=== PATIENT | female | born 1985 | race Caucasian/White ===

== ENCOUNTER 2021-08-11 15:18 | Emergency (ER) | payer OTHER, SELFPAY ==
[2021-08-11 15:46] VITALS: BP 132/78; PULSE 74; PULSE 78; RESP 18; TEMP 37.2; O2SAT 97; O2SAT 98; BMI 26.6
--- NOTE | 2021-08-11 17:25 | ED.GENADULT ---
HPI - General Adult General Chief complaint: General Medical Stated complaint: DRUG USE Time Seen by Provider: 08/11/21 15:45 Source: patient Mode of arrival: EMS Limitations: no limitations History of Present Illness HPI narrative: 35-year-old female who was brought to the emergency department by ambulance for reported panic attack. The patient was sitting outside of the [employer] when the paramedics picked her up. She was brought to the emergency department for anxiety and initially placed in the Psychiatric Pod. She then reported to the ED nurse that she snorted 1 bag of heroin prior to having her panic attack. The patient was found to be lethargic but she was able to answer questions, her pupils were 4-5 mm in diameter and not pinpoint. I evaluated the patient and asked the patient to be moved to the emergency department so that we could monitor her O2 saturation and moderate her for respiratory depression. The patient is somnolent but arousable. She answers questions appropriately but answers very slowly. Patient states that she does not feel well and she feels that she is having anxiety attack. She states she feels of her heart is racing. She had no other complaints. She denied fever, chills, cough, chest pain, shortness of breath, nausea or vomiting. She states she has a history of anxiety. Related Data Allergies Allergy/AdvReac Type Severity Reaction Status Date / Time No Known Allergies Allergy Verified 08/11/21 17:29 Review of Systems Review of Systems: Yes all other systems are reviewed and are negative [facility] Past Medical History [facility] Narrative: Past medical history: Anxiety, chronic back pain, polysubstance abuse. Past surgical history: None. Social history: She denies tobacco use. She denies alcohol use. She does admit to using intranasal heroin 2 to 3 times a week. She did use prior to coming to the emergency department. Medical History Polysubstance abuse Social History Social History Advance Directives: No Advance Directives Information Provided: No Patient : No Physical Exam Vital Signs: Vital Signs: Last Vital Signs Temp 98.9 F 08/11/21 15:46 Pulse 80 08/11/21 17:34 Resp 16 08/11/21 17:34 BP 132/78 08/11/21 15:46 Pulse Ox 99 08/11/21 17:34 Body Mass Index 26.6 Const: Other: Patient is sitting in a chair, she is somnolent but arousable, she answers questions appropriately but answers very slowly in a soft voice. HENMT: Head: Yes normal to inspection, Yes normocephalic and Yes atraumatic Ears: external ears normal General nose exam: Normal external nose present Face and sinus: Yes normal facial exam Mouth: Normal oral and palatal mucosa present Throat: Yes posterior oropharynx normal Eyes: General: appearance normal, both eyes and all related structures Pupils: Equal, round and reactive pupils present Neck: Neck: Yes normal visual inspection, Yes no lymphadenopathy, Yes trachea midline and Yes supple Chest: Chest palpation & inspection: normal inspection of the chest and normal palpation of entire chest wall Resp: Effort & Inspection: normal respiratory effort and able to speak in complete sentences Auscultation: clear to auscultation bilaterally Cardio: Rate: regular rate Rhythm: regular rhythm Heart sounds: S1 normal heart sound present, S2 normal heart sound present and no murmurs GI: Inspection: Yes normal to inspection Palpation (GI): Soft to palpation, nontender and no guarding Auscultation: normal bowel sounds : General: Yes no CVA tenderness Back/Spine/Pelvis: Back: no CVA tenderness Skin: General skin exam: no rashes or lesions noted Neuro: Cranial nerves: Yes CN's II-XII intact bilaterally and Yes Equal, round and reactive pupils present Cognition (Neuro): normal cognition Motor exam (neuro): 5/5 motor strength present throughout Extrem: General: Yes normal to inspection Psych: Appearance: grossly normal Speech and movement: Normal speech and movement present Affect: Other affect and mood findings present (Somnolent) Attitude: cooperative Thought process: Normal thought process present Thought content: Normal thought content present, suicidality and no homicidality Course Course Course Narrative: 35-year-old female brought emergency department by ambulance for evaluation of anxiety and use of intranasal narcotics. Vital signs were normal with an O2 saturation of 98% on room air and a respiratory rate of 18. The patient initially was found to be somnolent but arousable and answers all questions appropriately. Her physical examination was otherwise unremarkable. The patient was placed on O2 saturation monitor. The patient was monitored closely for 1 hour and she had no episodes of desaturation or decreased respiratory rate. The patient will be monitored for 1-2 more hours to make sure that she does not have any further somnolent from her narcotic use. I did order a urine tox on the patient which is pending collection. 1827: The patient is awake and alert has no complaints. The patient did not give us a urine sample. The patient was discharged home and given intranasal Narcan to take home. The patient does not want any counseling from our academic coach. I did discuss safe use of narcotics and the fact that she should use informed of the sober person that can administer Narcan in the event that she loses consciousness or stops breathing. Patient was discharged home. The patient was given verbal and printed instructions prior to discharge. The patient was advised to follow-up with her PCP in 2 days and to return to the emergency department if her symptoms get worse or if she develops any new symptoms that are concerning to her. Discharge Plan Discharge Clinical Impression: Anxiety, Narcotic drug use Instructions: Anxiety (ED), Opioid Use Disorder (ED) Additional Instructions: Your are being discharged home with intranasal Narcan. If you are going to continue to use heroin, you should make sure that there is a sober person with you that is not using drugs and that this person can administer intranasal Narcan in the event that you stop breathing. Follow-up with your doctor in 2 days. Please return to the emergency department if your symptoms get worse or if you develop any symptoms that are concerning to you.
[2021-08-11 17:34] VITALS: PULSE 80; RESP 16; O2SAT 99
[2021-08-11] MEDS: Naloxone HCl Nasal TAKE HOME 4 MG SPRAY NOSTRILALT (18:57)
[2021-08-11 20:00] VITALS: RESP 16; O2SAT 98
--- NOTE | 2021-08-11 21:12 | MHC.CARE ---
CARE Team met with patient to offer detox/MAT resources. Patient declined detox referral, but asked for assistance getting transportation home. The CARE Team attempted to get a Lyft for the patient three times, but no drivers were available so [facility] was contacted to transport the patient. The CARE Team walked the patient to the [employer] when it arrived and provided her with information about outpatient substance use resources.
== END 2021-08-11 20:42 | disposition home or self-care (01) ==
PROVIDERS: Emergency Provider Emergency Medicine Emergency Medical Services
DX: F41.0 Panic disorder [episodic paroxysmal anxiety] (principal); F41.1 Generalized anxiety disorder; F43.0 Acute stress reaction; F11.10 Opioid abuse, uncomplicated; Z79.899 Other long term (current) drug therapy; Z71.51 Drug abuse counseling and surveillance of drug abuser
CPT/HCPCS: 99283

== ENCOUNTER 2025-08-15 16:56 | Inpatient (IN) | payer OTHER, SELFPAY ==
[2025-08-15 17:22] VITALS: BP 135/70; PULSE 97; RESP 18; TEMP 36.7; O2SAT 97
[2025-08-15 17:29] VITALS: BP 154/82; PULSE 92; O2SAT 97; BMI 36.9
--- NOTE | 2025-08-15 17:31 | ED_ITS ---
HPI - Psych General Chief Complaint: Psychiatric Symptoms Stated Complaint: crisis Time Seen by Provider: 08/15/25 17:02 History of Present Illness HPI Narrative: Patient is a 39-year-old female with a history of schizoaffective disorder. [facility]. Patient ran outside. Was worried that she is by an alien. Patient denies any suicidal homicidal ideation was brought in for further evaluation. Baseline is on antipsychotic. Patient denies any changes in medication. Related Data Home Medications ?Medication ?Instructions ?Recorded ?Confirmed Haldol Decanoate 100 mg IM Q4W 08/15/2508/15 Invega Sustenna 234 mg IM Q4W 08/15/2508/15 Nicotine Tartrate 2 mg PO Q4-5H PRN Nicotine C ravings 08/15/25 08/15/25 acetaminophen 650 mg PO Q8-10H PRN Pain, M ild 08/15/25 08/15/25 buprenorphine HCl 2 mg PO DAILY 08/15/2508/15 chlorpromazine 100 mg PO Q6-8H PRN Anxiety 08/15/25 08/15/25 hydroxyzine HCl 25 mg PO Q8-10H PRN Anxiety 08/15/25 08/15/25 lactulose 15 ml PO DAILY PRN Constipat ion 08/15/25 08/15/25 tramadol 50 mg PO Q6H PRN Pain, Moder ate 08/15/25 08/15/25 Allergies Allergy/AdvReac Type Severity Reaction Status Date / Time lamotrigine (From Lamictal) Allergy Shortness Verified 08/16/25 18:32 of Breath Review of Systems 2 Review of Systems: No chest pain or shortness breath no nausea no vomiting no recreational drugs Yes all other systems are reviewed and are negative [facility] Past Medical History Attestation statement: The following information was validated with the patient. Medical History Polysubstance abuse Social History Social History Household Members: Other Housing: Other Housing Other:: penitentiary Do you presently have visiting nurse or other home services: Yes Patient Tobacco Use Status: Current everyday Tobacco user Tobacco use type: Cigarette Cigarette Packs Per Day: 1 Cigarettes Per Day: 20.0 Smoked in Last 30 Days: Yes e-Cigarette/Vaping Use: Never Used Patient Interested in Nicotine Replacement: Yes Patient Given Instructions on How to Stop Smoking: No Second Hand Smoke Exposure: No Currently Displaying Signs/Symptoms of Drug Intoxication Withdrawal: No Spiritual Healthcare Practices: None Tenriism Healthcare Practices: None Cultural Healthcare Practices: None Advance Directives: No Advance Directives Information Provided: Yes Do you have thoughts of harming others: None Do you have a plan to hurt others: No Plan Recently lost weight without trying: No How much weight loss: Not applicable Eating poorly because of decreased appetite: No Nutrition screen score: 0 Nutrition Risks: No Nutritional Risk Patient : No : No Poor oral hygiene: No service: No Sexual orientation: Did not discuss Physical Exam 2 Exam: Exam: Appearance: Alert. Oriented X3. No acute distress. Eyes: Pupils equal, round and reactive to light. ENT: Pharynx normal. Neck: Normal inspection. Neck supple. No lymph nodes noted. No crepitus CVS: Normal heart rate and rhythm. Pulses normal. Normal S1 and S2 Respiratory: No respiratory distress. Breath sounds normal. No Wheezing. No rales Abdomen: Soft and nontender. No rigidity. No distention. good BS x4 Skin: Skin warm and dry. Normal skin color. Normal skin turgor. Extremities: No lower extremity edema. Neurovascular intact to all extremities. No Lacerations. No Rash Neuro: Oriented X 3. No motor deficit. No sensory deficit. Moving all extermities. No slurred speech. Cranial nerves grossly intact Vital Signs: Vital Signs: Last Vital Signs Temp 97.2 F 08/26/25 08:40 Pulse 71 08/26/25 08:40 Resp 20 08/26/25 08:40 BP 102/63 08/26/25 08:40 Pulse Ox 97 08/26/25 08:40 O2 Del Method Room Air 08/26/25 08:40 BMI result Body Mass Index 36.9 Course Course Course Narrative: 9:43 AM 08/16/2025 (Dr. Toño Odonnell): Patient in physician observation for psychiatric evaluation.? No acute events reported overnight. Reevaluation(s) Reevaluation #1: 11:13 AM 08/16/2025 (Dr. Toño Odonnell): Patient is going to be inpatient level of care Medications Administered Generic Name Dose Route Start Last Admin Trade Name Giovana PRN Reason Stop Dose Admin Acetaminophen 650 mg 08/16/25 12:50 08/24/25 21:32 Acetaminophen 325 Mg Tablet PO 650 mg Q6H PRN Administration Headache/Pain, Scale 1-10 Buprenorphine HCl 2 mg 08/17/25 09:00 08/26/25 08:37 Buprenorphine Hcl 2 Mg Tab.Subl SUBLINGUAL 2 mg DAILY SYDNIE Administration Chlorpromazine HCl 100 mg 08/16/25 11:59 08/19/25 17:13 Chlorpromazine Hcl 100 Mg Tablet PO 100 mg Q6H PRN Administration Anxiety Haloperidol Decanoate 100 mg 08/18/25 12:00 08/18/25 16:24 Haloperidol Decanoate 50 Mg/Ml Vial IM 100 mg Q30D SYDNIE Administration Nicotine 21 mg 08/16/25 12:50 08/24/25 09:07 Nicotine 21 Mg Patch.Td24 TRANSDERMA 21 mg DAILY PRN Administration nicotine craving Nicotine Polacrilex 2 mg 08/16/25 12:50 08/25/25 14:16 Nicotine Polacrilex 2 Mg Gum BUCCAL 2 mg Q2H PRN Administration Nicotine Cravings Paliperidone Palmitate 234 mg 08/26/25 09:00 08/26/25 10:03 Paliperidone Palmitate 234 Mg/1.5 Ml Syringe IM 234 mg Q30D SYDNIE Administration Tramadol HCl 50 mg 08/17/25 09:30 08/26/25 09:14 Tramadol Hcl 50 Mg Tablet PO 50 mg Q6H PRN Administration Severe back pain as home med Discontinued Medications Generic Name Dose Route Start Last Admin Trade Name Giovana PRN Reason Stop Dose Admin Benztropine Mesylate 1 mg 08/19/25 21:00 08/22/25 20:21 Benztropine Mesylate 1 Mg Tablet PO Not Given BEDTIME SYDNIE Diphenhydramine HCl 25 mg 08/23/25 11:17 08/23/25 11:36 Diphenhydramine Hcl 25 Mg Capsule PO 08/23/25 11:18 Not Given ONCE ONE Influenza Virus Vaccine 0.5 ml 08/16/25 15:54 08/16/25 16:27 Flu Vacc [id number](6mo Up)/Pf 0.5 Ml Syringe IM 08/16/25 15:55 Not Given .ONCE ONE Lidocaine 1 patch 08/18/25 09:00 08/26/25 08:40 Lidocaine 4 % Patch Adh..Patch TRANSDERMA Not Given DAILY [facility] Protocol Naproxen 250 mg 08/19/25 18:50 08/19/25 19:27 Naproxen 250 Mg Tablet PO 08/19/25 18:51 Not Given ONCE ONE Nicotine Polacrilex 2 mg 08/15/25 19:51 08/16/25 11:00 Nicotine Polacrilex 2 Mg Gum BUCCAL 2 mg Q1H PRN Administration Nicotine Cravings Medical Decision Making Medical Decision Making MDM Narrative: Grossly psychotic will require psychiatric evaluation likely admission labs ordered. In no distress. Lab Data 08/15/25 17:40 08/15/25 17:40 Labs: Lab Results 08/15/25 08/15/25 Range/Units 17:40 17:54 WBC 19.8 H (4.8-10.8) X10*3/uL RBC 4.82 (4.20-5.50) X10*6/uL Hgb 13.9 (12.0-16.0) g/dl Hct 42.2 (37.0-47.0) % MCV 87.6 (80.0-98.0) fL MCH 28.8 (27.0-33.0) pg MCHC 32.9 (31.0-35.0) g/dl RDW 13.8 (11.0-16.0) % Plt Count 345 (160-400) X10*3/uL MPV 10.3 (9.4-12.3) fL Immature Gran % (Auto) 0.8 H (0.0-0.4) % Neut % (Auto) 58.0 (45-73) % Lymph % (Auto) 33.2 (20-40) % [place] % (Auto) 6.9 (2-11) % Eos % (Auto) 0.7 (0-4) % Baso % (Auto) 0.4 (0-2) % Lymph # (Auto) 6.6 H (1.2-4.9) X10*3/uL [place] # (Auto) 1.4 H (0.1-1.2) X10*3/uL Eos # (Auto) 0.1 (0.0-0.4) X10*3/uL Baso # (Auto) 0.1 (0.0-0.2) X10*3/uL Abs Immat Gran (auto) 0.15 H (0.00-0.03) X10*3/uL Absolute Neuts (auto) 11.5 H (2.0-8.3) x10*3/uL Absolute Nucleated RBC 0.000 (0.0-0.012) X10*3/uL Nucleated RBC % (auto) 0.0 (0.0-0.2) /100WBC Smear Tech's Comments VERIFIED Smear Path Review SEE NOTE Sodium 140 (135-145) mmol/L Potassium 4.0 (3.3-5.1) mmol/L Chloride 108 (96-108) mmol/L Carbon Dioxide 21 L (22-29) mmol/L Anion Gap 15 (12-20) BUN 12 (9-16) mg/dL Creatinine 0.74 (0.5-1.4) mg/dL Estim Creat Clear Calc 137.0 Estimated GFR > 60 Random Glucose 132 H (60-115) mg/dL Calcium 9.4 (8.4-10.2) mg/dL Total Bilirubin 0.8 (0.0-1.0) mg/dL AST 26 (5-31) U/L ALT 23 (0-31) U/L Alkaline Phosphatase 101 (39-117) U/L Total Protein 7.8 (6.5-8.0) g/dL Albumin 4.5 (3.5-5.0) g/dL Hold Yellow Top See Note Urine Color Yellow Urine Appearance Cloudy Urine pH 5.5 (5.0-9.0) Ur Specific [place] >= 1.030 H (1.005-1.025) Urine Protein Negative (Neg-Trace) mg/dL Urine Glucose (UA) Negative (Negative) mg/dL Urine Ketones Negative (Negative) mg/dL Urine Blood Negative (Negative) Urine Nitrite Negative (Negative) Ur Leukocyte Esterase Negative (Negative) Urine RBC 0-2 (0-2) /HPF Urine WBC 6-10 H (0-5) /HPF Ur Squamous Epith Cells >20 (0-2) /HPF Urine Bacteria 4+ (None Seen) Hyaline Casts 0-2 (0-2) /LPF Urine Test NEGATIVE (NEGATIVE) Urine Opiates Screen Not Detected (Not Detect) Ur Buprenorphine Scrn Positive H (Not Detect) ng/mL Ur Oxycodone Screen Not Detected (Not Detect) ng/mL Urine Methadone Screen Not Detected (Not Detect) ng/mL Urine Fentanyl Screen POSITIVE H (Not Detect) Ur Barbiturates Screen Not Detected (Not Detect) Ur Phencyclidine Scrn Not Detected (Not Detect) Ur Amphetamines Screen Not Detected (Not Detect) U Benzodiazepines Scrn Not Detected (Not Detect) Urine Cocaine Screen Not Detected (Not Detect) U Marijuana (THC) Screen Not Detected (Not Detect) Ethyl Alcohol < 10 mg/dL Discharge Plan Discharge Clinical Impression: Paranoid Patient Disposition: Admitted As Inpatient Interventions: Admission Worksheet (ED) Last Done: 08/16/25 15:00 Discharge Date/Time: 08/16/25 15:00
[2025-08-15 17:48] LABS: Hematocrit 42.2 % (37.0-47.0); Hemoglobin 13.9 g/dl (12.0-16.0); Imm Gran Abs Auto 0.15 X10*3/uL (0.00-0.03); Imm Gran Pct Auto 0.8 % (0.0-0.4); MANUAL DIFF FLAG SCAN; Mean Corpuscular HGB Conc 32.9 g/dl (31.0-35.0); Mean Corpuscular Hemoglobin 28.8 pg (27.0-33.0); Mean Corpuscular Volume 87.6 fL (80.0-98.0); NRBC Abs Auto 0.000 X10*3/uL (0.0-0.012); NRBC Pct Auto 0.0 /100WBC (0.0-0.2); Platelet Count 345 X10*3/uL (160-400); Red Blood Count 4.82 X10*6/uL (4.20-5.50); SCAN SMEAR FLAG 1; White Blood Count 19.8 X10*3/uL (4.8-10.8)
[2025-08-15 17:49] LABS: Lymphocytes Absolute Auto 6.6 X10*3/uL (1.2-4.9)
[2025-08-15 18:01] LABS: Appearance Urine Cloudy; Glucose Urine UA Negative (Negative); PH 5.5 (5.0-9.0); Specific Gravity - Urine >= 1.030 (1.005-1.025)
[2025-08-15 18:02] LABS: UPreg QC Valid YES
[2025-08-15 18:06] LABS: UACC Culture Trigger YES
[2025-08-15 18:09] LABS: Cannabinoid Screen Urine Not Detected (Not Detect)
[2025-08-15 18:16] LABS: Alanine Aminotransferase 23 U/L (0-31); Albumin Level 4.5 g/dL (3.5-5.0); Alkaline Phosphatase 101 U/L (39-117); Anion Gap 15 (12-20); Aspartate Amino Transferase 26 U/L (5-31); Blood Urea Nitrogen 12 mg/dL (9-16); Calcium 9.4 mg/dL (8.4-10.2); Carbon Dioxide 21 mmol/L (22-29); Chloride 108 mmol/L (96-108); Creatinine Clr Calc Pharmacy 137.0; Estimated Glomerular Filt Rate > 60; Potassium 4.0 mmol/L (3.3-5.1); Sodium 140 mmol/L (135-145); Total Protein 7.8 g/dL (6.5-8.0)
--- NOTE | 2025-08-15 18:32 | PC.NURSE ---
Pt is oriented to the unit, she is paranoid and talking about the staff at the retirement trying to poison and kill her and her baby on arrival. She is calm and cooperative and agreeable to labs. She states she does not know when she took medications last. she denies SI/HI/AVH. she denies Pain or injuries. Her retirement is called, Elizabeth Martin reviews patients medications. She states Pt has been sniffing and smoking Crack cocaine and drinking. When patient is asked, she admits to the cocaine and drinking. She comes to the nurse and asks for Nicotine gum, she is able to have an improved conversation with little paranoia. SHe is given dinner and is quiet in her room.
--- OUTSIDE RECORDS SUMMARY | 2025-08-15 19:20 | XMS_ITS | Clinical Summary ---
Author Organization [facility] Address [address] [place] [id number] Care Team Providers Care Agency Cashier Name Role Phone Unavailable Primary Care Provider Unavailabl e Allergies Active Allergy Reactions Criticality Noted Date Comments Carbamazepine Unknown Lamotrigine Unknown Latex, Natural Rubber Anaphylaxis Soy Anaphylaxis Social History Tobacco Use Types Packs/Day Years Used Date Smoking Tobacco: Never Assessed Comments Unknown Sex and Gender Information Value Date Recorded Sex Assigned at Female 01/17/2024 12:59 AM EST Legal Sex Female 12:59 AM EST Gender Identity Female 01/17/2024 12:59 AM EST Sexual Orientation Not on file Plan of Treatment Health Maintenance Due Date Last Done Comments Blood Pressure 1985 Depression Screening 1989 Hepatitis C Screening 2003 DTaP,Tdap,and Td Vaccines (1 - Tdap) 2004 Pap Smear 2006 Cervical Cancer Screening 2015 HPV/Cotest 2015 COVID-19 Vaccine (2023-2 5 season) 2024 Influenza Vaccine (#1) 2025 Meningococcal B Vaccines Aged Out No longer eligible based on patient's age to complete this topic Meningococcal Vaccines Aged Out No lo nger eligible based on patient's age to complete this topic Pneumococcal Vaccine: Pediat rics (0 to 5 Years) and At-Risk Patients (6 to 64 Years) Aged Out No longer eligible b ased on patient's age to complete this topic
[2025-08-16 05:35] VITALS: BP 121/73; PULSE 78; RESP 18; TEMP 36.2; O2SAT 97
--- NOTE | 2025-08-16 11:10 | PC.NURSE ---
Assumed care of this patient at this time, patient requesting nicotine gum, POC IPLOC bedsearch.
--- NOTE | 2025-08-16 11:10 | MHC.CARE ---
Pt will be an inpatient bedsearch
--- NOTE | 2025-08-16 11:45 | PC.NURSE ---
Requested provider Dr. Odonnell to order meds, med rec completed by previous RN, awaiting orders.
--- NOTE | 2025-08-16 12:54 | ECG_ITS ---
Test Reason : PROLONGED QT Blood Pressure : */* mmHG Vent. Rate : 72 BPM Atrial Rate : 72 BPM P-R Int : 132 ms QRS Dur : 82 ms QT Int : 390 ms P-R-T Axes : 56 69 63 degrees QTcB Int : 427 ms Normal sinus rhythm Normal ECG No previous ECGs available Referred By: Christine Rg Electronically Signed By: CRAIG GRIMM
--- NOTE | 2025-08-16 13:10 | PC.NURSE ---
Food Safety Coordinator from [facility] Hollie called inquiring about the patient, informed her patient will be admitted inpatient, Nazario requested note to be able stating patient is being followed by their agency.
--- NOTE | 2025-08-16 13:16 | PC.NURSE ---
Patient refused blood draw, grievance and appeals coordinator made aware. EKG for admission completed.
--- NOTE | 2025-08-16 14:06 | PC.NURSE ---
Med list in chart faxed to pharmacy per their request.
--- NOTE | 2025-08-16 14:31 | PHA.MEDREC ---
Pharmacy Consult ? Medication Reconciliation Pharmacy has reviewed the medication reconciliation done by nursing, using med list from [facility].
[2025-08-16 15:36] VITALS: BP 130/85; PULSE 81; RESP 18; TEMP 36.4; O2SAT 98
[2025-08-16 15:38] VITALS: BMI 34.4
--- NOTE | 2025-08-16 16:44 | HO.PSYADMNOT ---
HPI Date of Service: 08/16/25 Chief Complaint: crisis Sources of Information: patient interviewed, chart reviewed and crisis/core team assessment reviewed HPI Subjective Notes: Love Warning and Conditional Voluntary Healthcare Proxy: No Guardianship: No Medical Problems Affecting Mental Status: No Past Psychiatric History: Hx of IPLOC Hx of respite No hx of PHP No hx of Detox Medical Evaluation Reviewed: Yes Ellevated WBC but refused to have it rechecked [facility] Medical History Polysubstance abuse Diagnostics Vital Signs (24Hr): Vital Signs - 24 hr 08/15/25 17:22 08/16/25 05:35 08/16/25 15:36 Temperature 98.1 F 97.1 F 97.6 F Pulse Rate 97 78 81 Respiratory Rate 18 18 18 Blood Pressure 135/70 121/73 130/85 Pulse Oximetry 97 97 98 Oxygen Delivery Method Room Air Room Air Room Air BMI result Body Mass Index 34.4 Labs 08/15/25 17:40 08/15/25 17:40 Labs: Laboratory Results - last 48 hr 08/15/25 08/15/25 17:40 17:54 WBC 19.8 H RBC 4.82 Hgb 13.9 Hct 42.2 MCV 87.6 MCH 28.8 MCHC 32.9 RDW 13.8 Plt Count 345 MPV 10.3 Immature Gran % (Auto) 0.8 H Neut % (Auto) 58.0 Lymph % (Auto) 33.2 [place] % (Auto) 6.9 Eos % (Auto) 0.7 Baso % (Auto) 0.4 Lymph # (Auto) 6.6 H [place] # (Auto) 1.4 H Eos # (Auto) 0.1 Baso # (Auto) 0.1 Abs Immat Gran (auto) 0.15 H Absolute Neuts (auto) 11.5 H Absolute Nucleated RBC 0.000 Nucleated RBC % (auto) 0.0 Smear Tech's Comments VERIFIED Smear Path Review SEE NOTE Sodium 140 Potassium 4.0 Chloride 108 Carbon Dioxide 21 L Anion Gap 15 BUN 12 Creatinine 0.74 Estim Creat Clear Calc 137.0 Estimated GFR > 60 Random Glucose 132 H Calcium 9.4 Total Bilirubin 0.8 AST 26 ALT 23 Alkaline Phosphatase 101 Total Protein 7.8 Albumin 4.5 Hold Yellow Top See Note Urine Color Yellow Urine Appearance Cloudy Urine pH 5.5 Ur Specific [place] >= 1.030 H Urine Protein Negative Urine Glucose (UA) Negative Urine Ketones Negative Urine Blood Negative Urine Nitrite Negative Ur Leukocyte Esterase Negative Urine RBC 0-2 Urine WBC 6-10 H Ur Squamous Epith Cells >20 Urine Bacteria 4+ Hyaline Casts 0-2 Urine Test NEGATIVE Urine Opiates Screen Not Detected Ur Buprenorphine Scrn Positive H Ur Oxycodone Screen Not Detected Urine Methadone Screen Not Detected Urine Fentanyl Screen POSITIVE H Ur Barbiturates Screen Not Detected Ur Phencyclidine Scrn Not Detected Ur Amphetamines Screen Not Detected U Benzodiazepines Scrn Not Detected Urine Cocaine Screen Not Detected U Marijuana (THC) Screen Not Detected Ethyl Alcohol < 10 EKG EKG: reviewed EKG Comment: NSR Meds/Allergies Meds Home Medications ?Medication ?Instructions ?Recorded ?Confirmed ?Type Haldol Decanoate 100 mg IM Q4W 08/15/25 08/15/25 History Invega Sustenna 234 mg IM Q4W 08/15/25 08/15/25 History Nicotine Tartrate 2 mg PO Q4-5H PRN Nicotine Cravings 08/15/25 08/15/25 History acetaminophen 650 mg PO Q8-10H PRN Pain, Mild 08/15/25 08/15/25 History buprenorphine HCl 2 mg PO DAILY 08/15/25 08/15/25 History chlorpromazine 100 mg PO Q6-8H PRN Anxiety 08/15/25 08/15/25 History hydroxyzine HCl 25 mg PO Q8-10H PRN Anxiety 08/15/25 08/15/25 History lactulose 15 ml PO DAILY PRN Constipation 08/15/25 08/15/25 History tramadol 50 mg PO Q6H PRN Pain, Moderate 08/15/25 08/15/25 History Allergies Allergies Allergy/AdvReac Type Severity Reaction Status Date / Time No Known Allergies Allergy Verified 08/15/25 17:32 Mental Status Exam Mental Status Exam Narrative: Patient is alert and oriented; behavior is cooperative, friendly with mild to moderate anxiety; patient is not in distress; dressed in hospital attire with unkempt hair but adequate hygiene; mood is described as good and affect incongruent; eye contact appropriate; Speech is normal rate, volume and prosody and not pressured; no psychomotor agitation/retardation present; thought process is organized and goal directed; Thought content is WNL, pertinent to relevant topics and without any delusional content, paranoid ideation or grandiosity; denies any SI/SIB/HI. Denies AH and there is no evidence of perceptual disturbance. Patient's insight and judgment fair. Assessment & Plan Statement Statement: I have reviewed the history and physical and performed a pertinent examination on my patient. No changes have occurred unless specified. If the History and Physical was not performed prior to admission, the Hospitalist's service will be consulted for completing the admission physical. Time Spent With Patient Time: Total time managing care of this patient today ____ minutes.
--- NOTE | 2025-08-16 18:22 | PC.ADMIT ---
Shanti is a 39 year old female who arrived at from the ED POD at 1501. She came to the ED brought in by ambulance from her fci with complaints of ?being by an alien? and increased paranoia per fci staff. Shatni has a schizoaffective disorder and is currently on Haldol Deconate and also reports being on Subutex. She is seen by [facility] per report. She reports she has been at this current fci for a couple months and does not like some of the staff, ?Sarita rudd up on me about taking the medication.? Per CARE team note she reports she is being given these shots against her will? and she doesn?t want to return to that fci. In ED tox screen positive for buprenorphine and cocaine. She reports she last used cocaine 1 week ago and uses alot She smokes cigarettes- 1 PPD and is interested in NRT. She drinks once per month 1-2 drinks, declined Quitworks, addictions consult, underwear finisher visit, and Flu vaccine. She reports she has been at this current fci for a couple months and does not like some of the staff, ?Sarita rudd up on me about taking the medication.? Shanti was subdued and cooperative at time of admission. She was vague and apathetic during assessment questions often replying she didn?t know. She reports she has had back surgery for an L5 herniated disk that she ?got from getting up off the couch.? She reports having an allergy to Lamictal- throat closes up and does not wish to take psychiatric medications anymore? and does not acknowledge having previous psychiatric admissions (despite reporting previously at [facility] for 5 years) She denies SI/HI/AVH and denies having any depression or anxiety. Skin and safety check unremarkable, reports sleep and appetite are ?okay?. She signed a CV with Chloé Alves and was oriented to the unit and placed on 15 min safety checks.?
[2025-08-16 19:58] VITALS: BP 109/63; PULSE 77; RESP 18; TEMP 36.9; O2SAT 99
--- NOTE | 2025-08-17 08:39 | HO.PM.IMCN ---
History of Present Illness Data of Consult Service Date: 08/17/25 Primary Care Provider: Unknown Physician HPI Reason for consult: Medical management 39-year-old female with a past medical history of anxiety, bipolar affective disorder, MDD,PTSD, history of polysubstance use including heroin, cocaine, and ecstasy, chronic hepatitis-C infection, schizoaffective disorder, chronic low back pain who resides in a prison. Patient was brought to the ED via EMS for increased paranoia and stating that the staff is trying her. In the ED she had an elevated WBC, electrolytes without any kidney or liver injury. Utox positive for fentanyl and buprenorphine. Urinalysis was negative. EKG demonstrated normal sinus rhythm. Patient reports that she has a history of back pain. Reports that she has a surgery, nut not recently. She denies any shortness of breath, dizziness lightheadedness or any other concerning symptoms. Denies back pain at present. Reports that she did not feel like eating this morning. Review of Systems Review of Systems: Denies any shortness of breath, chest pain, dizziness, lightheadedness, abdominal pain or discomfort, nausea vomiting or diarrhea PMFSH Medical History Polysubstance abuse Social History Household Members: Other Housing: Other Housing Other:: prison Do you presently have visiting nurse or other home services: Yes Patient Tobacco Use Status: Current everyday Tobacco user Tobacco use type: Cigarette Cigarette Packs Per Day: 1 Cigarettes Per Day: 20.0 Smoked in Last 30 Days: Yes e-Cigarette/Vaping Use: Never Used Patient Interested in Nicotine Replacement: Yes Patient Given Instructions on How to Stop Smoking: No Second Hand Smoke Exposure: No Currently Displaying Signs/Symptoms of Drug Intoxication Withdrawal: No Spiritual Healthcare Practices: None Amish Healthcare Practices: None Cultural Healthcare Practices: None Advance Directives: No Advance Directives Information Provided: Yes Do you have thoughts of harming others: None Do you have a plan to hurt others: No Plan Recently lost weight without trying: No How much weight loss: Not applicable Eating poorly because of decreased appetite: No Nutrition screen score: 0 Nutrition Risks: No Nutritional Risk Patient : No : No Poor oral hygiene: No Meds Allergies Allergy/AdvReac Type Severity Reaction Status Date / Time lamotrigine (From Lamictal) Allergy Shortness Verified 08/16/25 18:32 of Breath Active Medications: Current Medications Acetaminophen (Acetaminophen 325 Mg Tablet) 650 mg PO Q6H PRN PRN Reason: Headache/Pain, Scale 1-10 Al Hydroxide/Mg Hydroxide (Magnesium Hydrox/Alum Hydrox 30 Ml Oral.Susp) 30 ml PO Q6H PRN PRN Reason: Heartburn/Nausea Buprenorphine HCl (Buprenorphine Hcl 2 Mg Tab.Subl) 2 mg SUBLINGUAL DAILY SYDNIE Last Admin: 08/17/25 08:29 Dose: Not Given Chlorpromazine HCl (Chlorpromazine Hcl 100 Mg Tablet) 100 mg PO Q6H PRN PRN Reason: Anxiety Haloperidol Decanoate (Haloperidol Decanoate 50 Mg/Ml Vial) 100 mg IM Q30D [facility] Hydroxyzine HCl (Hydroxyzine Hcl 25 Mg Tablet) 25 mg PO Q6H PRN PRN Reason: mild anxiety Lactulose (Lactulose 20 Gm/30 Ml Solution) 10 gm PO DAILY PRN PRN Reason: Constipation Magnesium Hydroxide (Milk Of Magnesia 30 Ml Oral.Susp) 30 ml PO DAILY PRN PRN Reason: Constipation Nicotine (Nicotine 21 Mg Patch.Td24) 21 mg TRANSDERMA DAILY PRN PRN Reason: nicotine craving Nicotine Polacrilex (Nicotine Polacrilex 2 Mg Gum) 2 mg BUCCAL Q2H PRN PRN Reason: Nicotine Cravings Paliperidone Palmitate (Paliperidone Palmitate 234 Mg/1.5 Ml Syringe) 234 mg IM Q30D [facility] Trazodone HCl (Trazodone Hcl 50 Mg Tablet) 50 mg PO BEDTIME MRX1 PRN PRN Reason: Insomnia Home Medications ?Medication ?Instructions ?Recorded ?Confirmed ?Last Taken ?Type Haldol Decanoate 100 mg IM Q4W 08/15/25 08/15/25 07/19/25 History Invega Sustenna 234 mg IM Q4W 08/15/25 08/15/25 07/29/25 History Nicotine Tartrate 2 mg PO Q4-5H PRN Nicotine Cravings 08/15/25 08/15/25 08/11/25 History acetaminophen 650 mg PO Q8-10H PRN Pain, Mild 08/15/25 08/15/25 Unknown History buprenorphine HCl 2 mg PO DAILY 08/15/25 08/15/25 08/03/25 History chlorpromazine 100 mg PO Q6-8H PRN Anxiety 08/15/25 08/15/25 Unknown History hydroxyzine HCl 25 mg PO Q8-10H PRN Anxiety 08/15/25 08/15/25 Unknown History lactulose 15 ml PO DAILY PRN Constipation 08/15/25 08/15/25 Unknown History tramadol 50 mg PO Q6H PRN Pain, Moderate 08/15/25 08/15/25 Unknown History Physical Exam Vital Signs and Narrative: Vital Signs: Last Vital Signs Temp 98.5 F 08/16/25 19:58 Pulse 77 08/16/25 19:58 Resp 18 08/16/25 19:58 BP 109/63 08/16/25 19:58 Pulse Ox 99 08/16/25 19:58 O2 Del Method Room Air 08/16/25 19:58 BMI result Body Mass Index 34.4 CONST: Alert and oriented, in NAD. Well nourished HEENT: Normocephalic, atraumatic, MMM, Eyes clear, Neck supple RESP: Lungs clear, RRR even and regular HEART:,RRR, S1, S2. No murmur, no edema GI:Abdomen Soft NT, ND. + BS times four :Deferred SKIN: Warm dry and intact, no visible lesions or rashes NEURO:CN II-XII Intact bilaterally, Sensation intact. Speech clear PSYCH: Flat affect, cooperative Results Labs 08/15/25 17:40 08/15/25 17:40 Labs: Laboratory Results - last 24 hr 08/15/25 17:40 Smear Path Review SEE NOTE Assessment and Plan (1) Chronic low back pain: Status: Acute Plan 39-year-old female with a past medical history of anxiety, bipolar affective disorder, MDD,PTSD, history of polysubstance use including heroin, cocaine, and ecstasy, chronic hepatitis-C infection, schizoaffective disorder, chronic low back pain admitted to inpatient psychiatric care after presenting to the ED with paranoid behavior. Anxiety, Bipolar affective disorder, MDD,PTSD, history of Polysubstance use/Schizoaffective disorder, Treatment per psychiatric team Chronic low back pain Would avoid escalation of narcotics Continue Tylenol and Lidoderm patch daily Thank you for allowing me to participate in the care of this patient. Will follow as needed, please notify medical provider with any changes in condition or concerns.
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
[2025-08-17] MEDS: Nicotine 21 MG PATCH.TD24 TRANSDERMA (11:17)
[2025-08-17 20:00] VITALS: BP 141/68; PULSE 83; RESP 18; TEMP 36.6; O2SAT 99
[2025-08-18 08:00] VITALS: BP 129/77; PULSE 64; RESP 16; TEMP 36.1; O2SAT 97
[2025-08-18] MEDS: Lidocaine 4 % Patch ADH..PATCH 1 PATCH TRANSDERMA (08:22)
--- NOTE | 2025-08-18 09:09 | HO.PSYCHPN ---
Subjective Subjective Date of Service: 08/18/25 Reason For Visit: crisis Subjective Notes: Conditional Voluntary Guardianship: Yes Medical Problems Affecting Mental Status: No Interim History: Patient states that she feels a little better. She is worried about [facility] staff forcing her to take Invega and Haldol injection. She states that the medications make her hear voices. She has been refusing Suboxone here because I just want to take it anymore. Have been taking it for over a year. She currently reports AH but states she does not pay attention to the voices and does not know what they are saying. The voices are persistent but sometimes quite. She denies SI/HI/VH. She denies anxiety or depression. Medication Compliance: Intermittent Side effects from medications: Yes Attending Groups: Yes Review of Systems Acute medical concerns: No Review of Systems Review of Systems Yes all other systems are reviewed and are negative Mental Status Exam Mental Status Exam Narrative: Appearance: Casually dressed, unkempt Behavior: Calm and cooperative throughout the interview. Eye contact is appropriate, and there are no signs of psychomotor agitation or retardation Speech: Normal volume and prosody Thought process: Disorganized, not goal-directed Thought content: Do not want to take medications Mood: ok Affect: Blunted SI:denies HI:denies VH/AH: Reports AH Delusions: Paranoia Insight/judgment: Impaired insight and judgment Memory/cog: Alert, oriented x 3. grossly intact to conversational testing Diagnostics Vital Signs (24Hr): Vital Signs - 24 hr 08/17/25 20:00 08/18/25 08:00 Temperature 97.8 F 96.9 F Pulse Rate 83 64 Respiratory Rate 18 16 Blood Pressure 141/68 H 129/77 Pulse Oximetry 99 97 Oxygen Delivery Method Room Air Room Air BMI result Body Mass Index 34.4 Labs 08/15/25 17:40 08/15/25 17:40 Labs: Laboratory Results - last 48 hr 08/15/25 17:40 Smear Path Review SEE NOTE Medications Medications Current Medications Acetaminophen (Acetaminophen 325 Mg Tablet) 650 mg PO Q6H PRN PRN Reason: Headache/Pain, Scale 1-10 Al Hydroxide/Mg Hydroxide (Magnesium Hydrox/Alum Hydrox 30 Ml Oral.Susp) 30 ml PO Q6H PRN PRN Reason: Heartburn/Nausea Buprenorphine HCl (Buprenorphine Hcl 2 Mg Tab.Subl) 2 mg SUBLINGUAL DAILY [facility] Last Admin: 08/18/25 08:22 Dose: Not Given Chlorpromazine HCl (Chlorpromazine Hcl 100 Mg Tablet) 100 mg PO Q6H PRN PRN Reason: Anxiety Last Admin: 08/17/25 17:46 Dose: 100 mg Haloperidol Decanoate (Haloperidol Decanoate 50 Mg/Ml Vial) 100 mg IM Q30D [facility] Hydroxyzine HCl (Hydroxyzine Hcl 25 Mg Tablet) 25 mg PO Q6H PRN PRN Reason: mild anxiety Lactulose (Lactulose 20 Gm/30 Ml Solution) 10 gm PO DAILY PRN PRN Reason: Constipation Lidocaine (Lidocaine 4 % Patch Adh..Patch) 1 patch TRANSDERMA DAILY [facility]; Protocol Last Admin: 08/18/25 08:22 Dose: 1 patch Magnesium Hydroxide (Milk Of Magnesia 30 Ml Oral.Susp) 30 ml PO DAILY PRN PRN Reason: Constipation Nicotine (Nicotine 21 Mg Patch.Td24) 21 mg TRANSDERMA DAILY PRN PRN Reason: nicotine craving Last Admin: 08/17/25 11:17 Dose: 21 mg Nicotine Polacrilex (Nicotine Polacrilex 2 Mg Gum) 2 mg BUCCAL Q2H PRN PRN Reason: Nicotine Cravings Last Admin: 08/17/25 17:47 Dose: 2 mg Paliperidone Palmitate (Paliperidone Palmitate 234 Mg/1.5 Ml Syringe) 234 mg IM Q30D [facility] Tramadol HCl (Tramadol Hcl 50 Mg Tablet) 50 mg PO Q6H PRN PRN Reason: Severe back pain as home med Last Admin: 08/17/25 17:46 Dose: 50 mg Trazodone HCl (Trazodone Hcl 50 Mg Tablet) 50 mg PO BEDTIME MRX1 PRN PRN Reason: Insomnia Allergies Allergies Allergy/AdvReac Type Severity Reaction Status Date / Time lamotrigine (From Lamictal) Allergy Shortness Verified 08/16/25 18:32 of Breath Assessment & Plan Assessment & Plan (1) Paranoid: Status: Acute Code(s): F22 - Delusional disorders (2) Anxiety and depression: Status: Acute Code(s): F41.9 - Anxiety disorder, unspecified; F32.A - Depression, unspecified (3) Cocaine abuse: Status: Acute Code(s): F14.10 - Cocaine abuse, uncomplicated (4) Opiate dependence: Status: Acute Code(s): F11.20 - Opioid dependence, uncomplicated Plan HPI: Patient is a 39 years old Wolof-speaking female was be BIBA secondary to feeling unsafe. Patient reports that she believes that staff trying to hurt, giving her shots against her will, and giving medication she does not want to. Denies SI/SIB/HI, AVH I do not feel safe at home, so staff called . Patient has been living in the [facility] for a couple months after being discharged from [place] after 5 years of living there. Reported that she has been using crack cocaine 3 days a week and states I used a lot . She does not want to return to the [facility] as she is not safe there. Formulation/clinical reasoning: She strongly declined medication, and plan not to take them. She appears to be depressed and anxious but denies it, incongruent mood and affect. Denies paranoid or hallucinations, but appeared to be very paranoid and delusions. She has poor and impaired insight and poor judgment. She believes she has no mental health issues that need medications. Also increased substance use while in [facility]. We will do collateral with [facility] to obtain more information regarding medication history. Not able to discuss history mental health diagnosis, she meets criteria for anxiety, and depression, substance use disorder, paranoid to rule out substance induce mood/psychosis. As mention above, need collateral with [facility] regarding mental health and treatment history. U tox positive for fentanyl, and Suboxone. Monotor for W?W/D symptoms and provide comfort medications. Hospital course: 08/16/25: Continue with home meds. She is on suboxone daily but refuse it this morning. She has Thorazine p.r.n. available for agitation. Tramadol 50 mg every 6 hour p.r.n. for chronic back pain which she was given by outpatient provider. She is disheveled, isolative, mostly in bed. Currently paranoid. 08/18: Continue current treatment regimen. Reinforced importance of medication adherence. Verbalized understanding and agreed to take her medications as prescribed. Guardianship/Prasad?s documentation were obtained today and currently in the legal section of the patient's non-electronic chart. Pharmacist informed to make notation that patient cannot refuse Haldol and paliperidone EDWARDS due to current community Prasad's order. Haldol Dec 100 mg IM Q 30 day due today. Plan Patient on 15 minute checks for safety. Admitted to M5. CV. Work with treatment team to do collateral Refer to patient to ultrasound specialist: patient declines. Will order lab works and monitor for WBC which was elevated in the ED Haldol Dec 100mg Q 30 day due on 08/18. Invega Sustenna 234 mg Q 30 days due on 08/27. Patient educated on: therapeutic strategies Reason for continued inpatient stay Substantial Risk for: rapid decompensation Time Spent With Patient Time: Total time managing care of this patient today ____ minutes.
[2025-08-18] MEDS: Nicotine 21 MG PATCH.TD24 TRANSDERMA (16:09)
[2025-08-18 20:00] VITALS: BP 107/60; PULSE 80; TEMP 37.2; O2SAT 95
[2025-08-19 07:00] VITALS: BMI 34.7
[2025-08-19] MEDS: Lidocaine 4 % Patch ADH..PATCH 1 PATCH TRANSDERMA (08:45)
--- NOTE | 2025-08-19 09:23 | P.PNPSI_ITS ---
Subjective Subjective Date of Service: 08/19/25 Reason For Visit: crisis Subjective Notes: Conditional Voluntary Interim History: Patient found lying in her bed. She notes her mood is fine. She slept well last night but feels tired and wants to sleep some more. Auditory hallucination still present but does not pay attention to nor understands what the voices are saying. She denies anxiety or depression. She denies SI/HI/VH. She has been med compliant but has not been attending groups. Medication Compliance: Yes Side effects from medications: No Attending Groups: No Review of Systems Acute medical concerns: No Review of Systems Review of Systems Yes all other systems are reviewed and are negative Mental Status Exam Mental Status Exam Narrative: Appearance: Casually dressed, unkempt Behavior: Calm and cooperative throughout the interview. Minimal eye contact, and there are no signs of psychomotor agitation or retardation Speech: Normal volume and prosody Thought process: more clear than yesterday, disorganized at times, not goal- directed Thought content: Wants to sleep Mood: Fine Affect: Flat SI:denies HI:denies VH/AH: Reports AH Delusions: Paranoia Insight/judgment: Impaired insight and judgment Memory/cog: Alert, oriented x 3. grossly intact to conversational testing Diagnostics Vital Signs (24Hr): Vital Signs - 24 hr 08/18/25 20:00 Temperature 98.9 F Pulse Rate 80 Blood Pressure 107/60 Pulse Oximetry 95 Oxygen Delivery Method Room Air BMI result Body Mass Index 34.4 Labs 08/15/25 17:40 08/15/25 17:40 Medications Medications Current Medications Acetaminophen (Acetaminophen 325 Mg Tablet) 650 mg PO Q6H PRN PRN Reason: Headache/Pain, Scale 1-10 Al Hydroxide/Mg Hydroxide (Magnesium Hydrox/Alum Hydrox 30 Ml Oral.Susp) 30 ml PO Q6H PRN PRN Reason: Heartburn/Nausea Buprenorphine HCl (Buprenorphine Hcl 2 Mg Tab.Subl) 2 mg SUBLINGUAL DAILY [facility] Last Admin: 08/19/25 08:47 Dose: 2 mg Chlorpromazine HCl (Chlorpromazine Hcl 100 Mg Tablet) 100 mg PO Q6H PRN PRN Reason: Anxiety Last Admin: 08/18/25 09:44 Dose: 100 mg Haloperidol Decanoate (Haloperidol Decanoate 50 Mg/Ml Vial) 100 mg IM Q30D [facility] Last Admin: 08/18/25 16:24 Dose: 100 mg Hydroxyzine HCl (Hydroxyzine Hcl 25 Mg Tablet) 25 mg PO Q6H PRN PRN Reason: mild anxiety Lactulose (Lactulose 20 Gm/30 Ml Solution) 10 gm PO DAILY PRN PRN Reason: Constipation Lidocaine (Lidocaine 4 % Patch Adh..Patch) 1 patch TRANSDERMA DAILY [facility]; Protocol Last Admin: 08/19/25 08:45 Dose: 1 patch Magnesium Hydroxide (Milk Of Magnesia 30 Ml Oral.Susp) 30 ml PO DAILY PRN PRN Reason: Constipation Nicotine (Nicotine 21 Mg Patch.Td24) 21 mg TRANSDERMA DAILY PRN PRN Reason: nicotine craving Last Admin: 08/18/25 16:09 Dose: 21 mg Nicotine Polacrilex (Nicotine Polacrilex 2 Mg Gum) 2 mg BUCCAL Q2H PRN PRN Reason: Nicotine Cravings Last Admin: 08/18/25 16:09 Dose: 2 mg Paliperidone Palmitate (Paliperidone Palmitate 234 Mg/1.5 Ml Syringe) 234 mg IM Q30D [facility] Tramadol HCl (Tramadol Hcl 50 Mg Tablet) 50 mg PO Q6H PRN PRN Reason: Severe back pain as home med Last Admin: 08/18/25 09:44 Dose: 50 mg Trazodone HCl (Trazodone Hcl 50 Mg Tablet) 50 mg PO BEDTIME MRX1 PRN PRN Reason: Insomnia Allergies Allergies Allergy/AdvReac Type Severity Reaction Status Date / Time lamotrigine (From Lamictal) Allergy Shortness Verified 08/16/25 18:32 of Breath Assessment & Plan Assessment & Plan (1) Paranoid: Status: Acute Code(s): F22 - Delusional disorders (2) Anxiety and depression: Status: Acute Code(s): F41.9 - Anxiety disorder, unspecified; F32.A - Depression, unspecified (3) Cocaine abuse: Status: Acute Code(s): F14.10 - Cocaine abuse, uncomplicated (4) Opiate dependence: Status: Acute Code(s): F11.20 - Opioid dependence, uncomplicated Plan HPI: Patient is a 39 years old Peruvian-speaking female was be BIBA secondary to feeling unsafe. Patient reports that she believes that staff trying to hurt, giving her shots against her will, and giving medication she does not want to. Denies SI/SIB/HI, AVH I do not feel safe at home, so staff called . Patient has been living in the [facility] for a couple months after being discharged from [place] after 5 years of living there. Reported that she has been using crack cocaine 3 days a week and states I used a lot . She does not want to return to the [facility] as she is not safe there. Formulation/clinical reasoning: She strongly declined medication, and plan not to take them. She appears to be depressed and anxious but denies it, incongruent mood and affect. Denies paranoid or hallucinations, but appeared to be very paranoid and delusions. She has poor and impaired insight and poor judgment. She believes she has no mental health issues that need medications. Also increased substance use while in [facility]. We will do collateral with [facility] to obtain more information regarding medication history. Not able to discuss history mental health diagnosis, she meets criteria for anxiety, and depression, substance use disorder, paranoid to rule out substance induce mood/psychosis. As mention above, need collateral with [facility] regarding mental health and treatment history. U tox positive for fentanyl, and Suboxone. Monotor for W?W/D symptoms and provide comfort medications. Hospital course: 08/16/25: Continue with home meds. She is on suboxone daily but refuse it this morning. She has Thorazine p.r.n. available for agitation. Tramadol 50 mg every 6 hour p.r.n. for chronic back pain which she was given by outpatient provider. She is disheveled, isolative, mostly in bed. Currently paranoid. 08/18: Continue current treatment regimen. Reinforced importance of medication adherence. Verbalized understanding and agreed to take her medications as prescribed. Guardianship/Prasad?s documentation were obtained today and currently in the legal section of the patient's non-electronic chart. Pharmacist informed to make notation that patient cannot refuse Haldol and paliperidone EDWARDS due to current community Prasad's order. Haldol Dec 100 mg IM Q 30 day due today. 08/19: Patient reports continued AH. Denies anxiety or depression. Denies SI/HI/VH. Encouraged to attend groups. Continue current treatment regimen. Plan Patient on 15 minute checks for safety. Admitted to . CV. Work with treatment team to do collateral Refer to patient to teacher specialist: patient declines. Will order lab works and monitor for WBC which was elevated in the ED Haldol Dec 100mg Q 30 day due on 08/18. Invega Sustenna 234 mg Q 30 days due on 08/27. Patient educated on: therapeutic strategies Reason for continued inpatient stay Substantial Risk for: rapid decompensation Time Spent With Patient Time: Total time managing care of this patient today ____ minutes.
--- NOTE | 2025-08-19 19:09 | PC.NURSE ---
Pt reported peasure in head, like brain is swelling . No other neurological signs noted or reported. VSS, except pulse 124. Reported to on-call provider as well as hospitalist.
--- NOTE | 2025-08-19 19:23 | PM.EVENT ---
Event Note Date of Service: 08/19/25 Event Note: 7:15 p.m. - We were contacted to notify patient is saying her brain is swollen and . Vital signs are stable, there is some mild sinus tachycardia. Neuro exam showed PERRLA, strength 5/5 in all muscle groups and normal speech. She is extremely anxious and thinks that this is happening because she overdosed. I reassured her and offer her Motrin or Tylenol but she refused and she feels she is on too many medications. I discussed with her nurse my impressions and to consider giving her trazodone or or anything psych provider consider appropriate. Time Spent With Patient Time: Total time managing care of this patient today ____ minutes.
[2025-08-20] MEDS: Nicotine 21 MG PATCH.TD24 TRANSDERMA (14:17)
--- NOTE | 2025-08-20 15:18 | P.PNPSI_ITS ---
Subjective Subjective Date of Service: 08/20/25 Reason For Visit: crisis Interim History: Active on unit. guarded. patient reports feeling okay today; focused on returning home next week. she reports sleeping well last night. denies SI/HI/VH. Patient reports auditory hallucinations of all sorts of things but would not go into detial. continue tx plan. Medication Compliance: Yes Side effects from medications: No Mental Status Exam Mental Status Exam Patient Appearance: Appropriate Patient Orientation: Person, Place, Time and Situation Level of Consciousness: Awake and Alert Patient Behavior: Guarded and Cooperative Mood Description: Calm Affect Description: Calm Ability to Follow Directions: Good Speech Pattern: Clear Hallucinations: Auditory Delusions: Not Present Thought Process: Intact Thought Content: positive for Intact Diagnostics Vital Signs (24Hr): BMI result Body Mass Index 34.7 Labs 08/15/25 17:40 08/15/25 17:40 Medications Medications Current Medications Acetaminophen (Acetaminophen 325 Mg Tablet) 650 mg PO Q6H PRN PRN Reason: Headache/Pain, Scale 1-10 Al Hydroxide/Mg Hydroxide (Magnesium Hydrox/Alum Hydrox 30 Ml Oral.Susp) 30 ml PO Q6H PRN PRN Reason: Heartburn/Nausea Benztropine Mesylate (Benztropine Mesylate 1 Mg Tablet) 1 mg PO BEDTIME [facility] Last Admin: 08/19/25 21:52 Dose: Not Given Buprenorphine HCl (Buprenorphine Hcl 2 Mg Tab.Subl) 2 mg SUBLINGUAL DAILY [facility] Last Admin: 08/20/25 08:36 Dose: 2 mg Chlorpromazine HCl (Chlorpromazine Hcl 100 Mg Tablet) 100 mg PO Q6H PRN PRN Reason: Anxiety Last Admin: 08/19/25 17:13 Dose: 100 mg Haloperidol Decanoate (Haloperidol Decanoate 50 Mg/Ml Vial) 100 mg IM Q30D [facility] Last Admin: 08/18/25 16:24 Dose: 100 mg Hydroxyzine HCl (Hydroxyzine Hcl 25 Mg Tablet) 25 mg PO Q6H PRN PRN Reason: mild anxiety Lactulose (Lactulose 20 Gm/30 Ml Solution) 10 gm PO DAILY PRN PRN Reason: Constipation Lidocaine (Lidocaine 4 % Patch Adh..Patch) 1 patch TRANSDERMA DAILY [facility]; Protocol Last Admin: 08/20/25 08:36 Dose: Not Given Magnesium Hydroxide (Milk Of Magnesia 30 Ml Oral.Susp) 30 ml PO DAILY PRN PRN Reason: Constipation Nicotine (Nicotine 21 Mg Patch.Td24) 21 mg TRANSDERMA DAILY PRN PRN Reason: nicotine craving Last Admin: 08/20/25 14:17 Dose: 21 mg Nicotine Polacrilex (Nicotine Polacrilex 2 Mg Gum) 2 mg BUCCAL Q2H PRN PRN Reason: Nicotine Cravings Last Admin: 08/20/25 14:17 Dose: 2 mg Paliperidone Palmitate (Paliperidone Palmitate 234 Mg/1.5 Ml Syringe) 234 mg IM Q30D [facility] Tramadol HCl (Tramadol Hcl 50 Mg Tablet) 50 mg PO Q6H PRN PRN Reason: Severe back pain as home med Last Admin: 08/19/25 12:08 Dose: 50 mg Trazodone HCl (Trazodone Hcl 50 Mg Tablet) 50 mg PO BEDTIME MRX1 PRN PRN Reason: Insomnia Allergies Allergies Allergy/AdvReac Type Severity Reaction Status Date / Time lamotrigine (From Lamictal) Allergy Shortness Verified 08/16/25 18:32 of Breath Assessment & Plan Assessment & Plan (1) Paranoid: Status: Acute Code(s): F22 - Delusional disorders (2) Anxiety and depression: Status: Acute Code(s): F41.9 - Anxiety disorder, unspecified; F32.A - Depression, unspecified (3) Cocaine abuse: Status: Acute Code(s): F14.10 - Cocaine abuse, uncomplicated (4) Opiate dependence: Status: Acute Code(s): F11.20 - Opioid dependence, uncomplicated Plan HPI: Patient is a 39 years old Polish-speaking female was be BIBA secondary to feeling unsafe. Patient reports that she believes that staff trying to hurt, giving her shots against her will, and giving medication she does not want to. Denies SI/SIB/HI, AVH I do not feel safe at home, so staff called . Patient has been living in the [facility] for a couple months after being discharged from [place] after 5 years of living there. Reported that she has been using crack cocaine 3 days a week and states I used a lot . She does not want to return to the [facility] as she is not safe there. Formulation/clinical reasoning: She strongly declined medication, and plan not to take them. She appears to be depressed and anxious but denies it, incongruent mood and affect. Denies paranoid or hallucinations, but appeared to be very paranoid and delusions. She has poor and impaired insight and poor judgment. She believes she has no mental health issues that need medications. Also increased substance use while in [facility]. We will do collateral with [facility] to obtain more information regarding medication history. Not able to discuss history mental health diagnosis, she meets criteria for anxiety, and depression, substance use disorder, paranoid to rule out substance induce mood/psychosis. As mention above, need collateral with [facility] regarding mental health and treatment history. U tox positive for fentanyl, and Suboxone. Monotor for W?W/D symptoms and provide comfort medications. Hospital course: 08/16/25: Continue with home meds. She is on suboxone daily but refuse it this morning. She has Thorazine p.r.n. available for agitation. Tramadol 50 mg every 6 hour p.r.n. for chronic back pain which she was given by outpatient provider. She is disheveled, isolative, mostly in bed. Currently paranoid. 08/18: Continue current treatment regimen. Reinforced importance of medication adherence. Verbalized understanding and agreed to take her medications as prescribed. Guardianship/Prasad?s documentation were obtained today and currently in the legal section of the patient's non-electronic chart. Pharmacist informed to make notation that patient cannot refuse Haldol and paliperidone EDWARDS due to current [facility] Prasad's order. Haldol Dec 100 mg IM Q 30 day due today. 08/19: Patient reports continued AH. Denies anxiety or depression. Denies SI/HI/VH. Encouraged to attend groups. Continue current treatment regimen. 08/20: continue current tx plan. Plan Patient on 15 minute checks for safety. Admitted to M5. CV. Work with treatment team to do collateral Refer to patient to oil program compliance specialist: patient declines. Will order lab works and monitor for WBC which was elevated in the ED Haldol Dec 100mg Q 30 day due on 08/18. Invega Sustenna 234 mg Q 30 days due on 08/27. Patient educated on: medication risk/benefits Reason for continued inpatient stay Substantial Risk for: med/psych decompensation Time Spent With Patient Time: Total time managing care of this patient today _15___ minutes.
[2025-08-20 20:00] VITALS: BP 108/68; PULSE 78; RESP 18; TEMP 36.4; O2SAT 98
[2025-08-21 08:00] VITALS: BP 122/75; PULSE 88; TEMP 36.4; O2SAT 96
[2025-08-21] MEDS: Lidocaine 4 % Patch ADH..PATCH 1 PATCH TRANSDERMA (08:32)
--- NOTE | 2025-08-21 08:49 | HO.PSYCHPN ---
Subjective Subjective Date of Service: 08/21/25 Reason For Visit: crisis Interim History: met with patient; discussed with team; reviewed chart Patient says that she is all right and starting to feel like she is headed back to her regular self. She says she came to the hospital because she was just freaking out... And says that the freaking out part is almost gone. Patient felt that medications were adequate. However she does not want to be on her low-dose Suboxone. She says abusing sober from heroin for several months and does not want to take it but is wondering if it is on her [place] order. Digital Project Manager agreed that could be discovered but for an outpatient agrees to continue taking it. Mental Status Exam Mental Status Exam Narrative: Pt is alert and oriented; behavior is isolative, but cooperative, friendly on approach; calm and more organized and willing to engage; patient is not in distress; dressed in casual attire, unkempt; mood is described as all right and affect congruent, brighter; eye contact appropriate; Speech is normal rate, volume and prosody and not pressured; some psychomotor retardation present; thought process is organized and goal directed; Thought content is on tx; otherwise no delusional ideations expressed; denies any SI/HI. Denies AVH though somewhat appears internally preoccupied Patients insight and judgment improved, likely close to baseline Diagnostics Vital Signs (24Hr): Vital Signs - 24 hr 08/20/25 20:00 08/21/25 08:00 Temperature 97.6 F 97.5 F Pulse Rate 78 88 Respiratory Rate 18 Blood Pressure 108/68 122/75 Pulse Oximetry 98 96 Oxygen Delivery Method Room Air Room Air BMI result Body Mass Index 34.7 Labs 08/15/25 17:40 08/15/25 17:40 Medications Medications Current Medications Acetaminophen (Acetaminophen 325 Mg Tablet) 650 mg PO Q6H PRN PRN Reason: Headache/Pain, Scale 1-10 Al Hydroxide/Mg Hydroxide (Magnesium Hydrox/Alum Hydrox 30 Ml Oral.Susp) 30 ml PO Q6H PRN PRN Reason: Heartburn/Nausea Benztropine Mesylate (Benztropine Mesylate 1 Mg Tablet) 1 mg PO BEDTIME SY[facility] Last Admin: 08/20/25 22:21 Dose: Not Given Buprenorphine HCl (Buprenorphine Hcl 2 Mg Tab.Subl) 2 mg SUBLINGUAL DAILY SYDN[facility] Last Admin: 08/21/25 08:32 Dose: 2 mg Chlorpromazine HCl (Chlorpromazine Hcl 100 Mg Tablet) 100 mg PO Q6H PRN PRN Reason: Anxiety Last Admin: 08/19/25 17:13 Dose: 100 mg Haloperidol Decanoate (Haloperidol Decanoate 50 Mg/Ml Vial) 100 mg IM Q30D [facility] Last Admin: 08/18/25 16:24 Dose: 100 mg Hydroxyzine HCl (Hydroxyzine Hcl 25 Mg Tablet) 25 mg PO Q6H PRN PRN Reason: mild anxiety Lactulose (Lactulose 20 Gm/30 Ml Solution) 10 gm PO DAILY PRN PRN Reason: Constipation Lidocaine (Lidocaine 4 % Patch Adh..Patch) 1 patch TRANSDERMA DAILY [facility]; Protocol Last Admin: 08/21/25 08:32 Dose: 1 patch Magnesium Hydroxide (Milk Of Magnesia 30 Ml Oral.Susp) 30 ml PO DAILY PRN PRN Reason: Constipation Nicotine (Nicotine 21 Mg Patch.Td24) 21 mg TRANSDERMA DAILY PRN PRN Reason: nicotine craving Last Admin: 08/20/25 14:17 Dose: 21 mg Nicotine Polacrilex (Nicotine Polacrilex 2 Mg Gum) 2 mg BUCCAL Q2H PRN PRN Reason: Nicotine Cravings Last Admin: 08/20/25 16:31 Dose: 2 mg Paliperidone Palmitate (Paliperidone Palmitate 234 Mg/1.5 Ml Syringe) 234 mg IM Q30D [facility] Tramadol HCl (Tramadol Hcl 50 Mg Tablet) 50 mg PO Q6H PRN PRN Reason: Severe back pain as home med Last Admin: 08/20/25 16:31 Dose: 50 mg Trazodone HCl (Trazodone Hcl 50 Mg Tablet) 50 mg PO BEDTIME MRX1 PRN PRN Reason: Insomnia Allergies Allergies Allergy/AdvReac Type Severity Reaction Status Date / Time lamotrigine (From Lamictal) Allergy Shortness Verified 08/16/25 18:32 of Breath Assessment & Plan Assessment & Plan (1) Paranoid: Status: Acute Code(s): F22 - Delusional disorders (2) Anxiety and depression: Status: Acute Code(s): F41.9 - Anxiety disorder, unspecified; F32.A - Depression, unspecified (3) Cocaine abuse: Status: Acute Code(s): F14.10 - Cocaine abuse, uncomplicated (4) Opiate dependence: Status: Acute Code(s): F11.20 - Opioid dependence, uncomplicated Plan HPI: Patient is a 39 years old Persian-speaking female was be BIBA secondary to feeling unsafe. Patient reports that she believes that staff trying to hurt, giving her shots against her will, and giving medication she does not want to. Denies SI/SIB/HI, AVH I do not feel safe at home, so staff called . [facility] after being discharged from [facility] after 5 years of living there. Reported that she has been using crack cocaine 3 days a week and states I used a lot . She does not want to return to the [facility] as she is not safe there. Formulation/clinical reasoning: She strongly declined medication, and plan not to take them. She appears to be depressed and anxious but denies it, incongruent mood and affect. Denies paranoid or hallucinations, but appeared to be very paranoid and delusions. She has poor and impaired insight and poor judgment. She believes she has no mental health issues that need medications. Also increased substance use [facility] in [facility]. We will do collateral with [facility] to obtain more information regarding medication history. Not able to discuss history mental health diagnosis, she meets criteria for anxiety, and depression, substance use disorder, paranoid to rule out substance induce mood/psychosis. As mention above, need collateral with [facility] regarding mental health and treatment history. U tox positive for fentanyl, and Suboxone. Monotor for W?W/D symptoms and provide comfort medications. Hospital course: 08/16/25: Continue with home meds. She is on suboxone daily but refuse it this morning. She has Thorazine p.r.n. available for agitation. Tramadol 50 mg every 6 hour p.r.n. for chronic back pain which she was given by outpatient provider. She is disheveled, isolative, mostly in bed. Currently paranoid. 08/18: Continue current treatment regimen. Reinforced importance of medication adherence. Verbalized understanding and agreed to take her medications as prescribed. Guardianship/Prasad?s documentation were obtained today and currently in the legal section of the patient's non-electronic chart. Pharmacist informed to make notation that patient cannot refuse Haldol and paliperidone EDWARDS due to current community Prasad's order. Haldol Dec 100 mg IM Q 30 day due today. 08/19: Patient reports continued AH. Denies anxiety or depression. Denies SI/HI/VH. Encouraged to attend groups. Continue current treatment regimen. 08/20: continue current tx plan. 08/21 Patient says that she is all right and starting to feel like she is headed back to her regular self. She says she came to the hospital because she was just freaking out... And says that the freaking out part is almost gone. Patient felt that medications were adequate. However she does not want to be on her low-dose Suboxone. She says abusing sober from heroin for several months and does not want to take it but is wondering if it is on her [place] order. Digital Project Manager agreed that could be discovered but for an outpatient agrees to continue taking it Plan Patient on 15 minute checks for safety. Admitted to . CV. Work with treatment team to do collateral Refer to patient to acute care clinical nurse specialist: patient declines. Will order lab works and monitor for WBC which was elevated in the ED Haldol Dec 100mg Q 30 day due on 08/18. Invega Sustenna 234 mg Q 30 days due on 08/27. Patient educated on: diagnosis, medication risk/benefits and substance abuse Informed Consent: understands and further education needed Reason for continued inpatient stay Substantial Risk for: stable for discharge, rapid decompensation and med/psych decompensation Time Spent With Patient Time: Total time managing care of this patient today ____ minutes.
[2025-08-21] MEDS: Nicotine 21 MG PATCH.TD24 TRANSDERMA (14:23)
[2025-08-21 19:34] VITALS: BP 145/67; PULSE 78; RESP 18; TEMP 36.9; O2SAT 97
[2025-08-22 08:00] VITALS: BP 136/64; PULSE 82; RESP 14; TEMP 36.6; O2SAT 96
[2025-08-22] MEDS: Nicotine 21 MG PATCH.TD24 TRANSDERMA (08:58)
--- NOTE | 2025-08-22 12:33 | P.PNPSI_ITS ---
Subjective Subjective Date of Service: 08/22/25 Reason For Visit: crisis Interim History: Met with patient; discussed with team Patient remains isolative but overall more social with select peers . Says she is all right patient has AH sometimes but it does not bother her Mental Status Exam Mental Status Exam Narrative: Pt is alert and oriented; behavior is isolative, but cooperative, friendly on approach; calm and more organized and willing to engage; patient is not in distress; dressed in casual attire, unkempt; mood is described as all right and affect congruent, brighter; eye contact appropriate; Speech is normal rate, volume and prosody and not pressured; some psychomotor retardation present; thought process is organized and goal directed; Thought content is on tx; otherwise no delusional ideations expressed; denies any SI/HI. Denies AVH though somewhat appears internally preoccupied Patients insight and judgment improved, likely close to baseline Diagnostics Vital Signs (24Hr): Vital Signs - 24 hr 08/21/25 19:34 08/22/25 08:00 Temperature 98.4 F 98 F Pulse Rate 78 82 Respiratory Rate 18 14 Blood Pressure 145/67 H 136/64 Pulse Oximetry 97 96 Oxygen Delivery Method Room Air Room Air BMI result Body Mass Index 34.7 Labs 08/15/25 17:40 08/15/25 17:40 Medications Medications Current Medications Acetaminophen (Acetaminophen 325 Mg Tablet) 650 mg PO Q6H PRN PRN Reason: Headache/Pain, Scale 1-10 Al Hydroxide/Mg Hydroxide (Magnesium Hydrox/Alum Hydrox 30 Ml Oral.Susp) 30 ml PO Q6H PRN PRN Reason: Heartburn/Nausea Benztropine Mesylate (Benztropine Mesylate 1 Mg Tablet) 1 mg PO BEDTIME [facility] Last Admin: 08/21/25 23:42 Dose: Not Given Buprenorphine HCl (Buprenorphine Hcl 2 Mg Tab.Subl) 2 mg SUBLINGUAL DAILY [facility] Last Admin: 08/22/25 08:49 Dose: 2 mg Chlorpromazine HCl (Chlorpromazine Hcl 100 Mg Tablet) 100 mg PO Q6H PRN PRN Reason: Anxiety Last Admin: 08/19/25 17:13 Dose: 100 mg Haloperidol Decanoate (Haloperidol Decanoate 50 Mg/Ml Vial) 100 mg IM Q30D [facility] Last Admin: 08/18/25 16:24 Dose: 100 mg Hydroxyzine HCl (Hydroxyzine Hcl 25 Mg Tablet) 25 mg PO Q6H PRN PRN Reason: mild anxiety Lactulose (Lactulose 20 Gm/30 Ml Solution) 10 gm PO DAILY PRN PRN Reason: Constipation Lidocaine (Lidocaine 4 % Patch Adh..Patch) 1 patch TRANSDERMA DAILY [facility]; Protocol Last Admin: 08/22/25 08:50 Dose: Not Given Magnesium Hydroxide (Milk Of Magnesia 30 Ml Oral.Susp) 30 ml PO DAILY PRN PRN Reason: Constipation Nicotine (Nicotine 21 Mg Patch.Td24) 21 mg TRANSDERMA DAILY PRN PRN Reason: nicotine craving Last Admin: 08/22/25 08:58 Dose: 21 mg Nicotine Polacrilex (Nicotine Polacrilex 2 Mg Gum) 2 mg BUCCAL Q2H PRN PRN Reason: Nicotine Cravings Last Admin: 08/21/25 16:35 Dose: 2 mg Paliperidone Palmitate (Paliperidone Palmitate 234 Mg/1.5 Ml Syringe) 234 mg IM Q30D [facility] Tramadol HCl (Tramadol Hcl 50 Mg Tablet) 50 mg PO Q6H PRN PRN Reason: Severe back pain as home med Last Admin: 08/21/25 14:22 Dose: 50 mg Trazodone HCl (Trazodone Hcl 50 Mg Tablet) 50 mg PO BEDTIME MRX1 PRN PRN Reason: Insomnia Allergies Allergies Allergy/AdvReac Type Severity Reaction Status Date / Time lamotrigine (From Lamictal) Allergy Shortness Verified 08/16/25 18:32 of Breath Assessment & Plan Assessment & Plan (1) Paranoid: Status: Acute Code(s): F22 - Delusional disorders (2) Anxiety and depression: Status: Acute Code(s): F41.9 - Anxiety disorder, unspecified; F32.A - Depression, unspecified (3) Cocaine abuse: Status: Acute Code(s): F14.10 - Cocaine abuse, uncomplicated (4) Opiate dependence: Status: Acute Code(s): F11.20 - Opioid dependence, uncomplicated Plan HPI: Patient is a 39 years old [place]-speaking female was be BIBA secondary to feeling unsafe. Patient reports that she believes that staff trying to hurt, giving her shots against her will, and giving medication she does not want to. Denies SI/SIB/HI, AVH I do not feel safe at home, so staff called . [facility] living in the [facility] for a couple months after being discharged from [place] after 5 years of living there. Reported that she has been using crack cocaine 3 days a week and states I used a lot . She does not want to return to the [facility] as she is not safe there. Formulation/clinical reasoning: She strongly declined medication, and plan not to take them. She appears to be depressed and anxious but denies it, incongruent mood and affect. Denies paranoid or hallucinations, but appeared to be very paranoid and delusions. She has poor and impaired insight and poor judgment. She believes she has no mental health issues that need medications. Also increased substance use while in [facility]. We will do collateral with [facility] to obtain more information regarding medication history. Not able to discuss history mental health diagnosis, she meets criteria for anxiety, and depression, substance use disorder, paranoid to rule out substance induce mood/psychosis. As mention above, need collateral with [facility] regarding mental health and treatment history. U tox positive for fentanyl, and Suboxone. Monotor for W?W/D symptoms and provide comfort medications. Hospital course: 08/16/25: Continue with home meds. She is on suboxone daily but refuse it this morning. She has Thorazine p.r.n. available for agitation. Tramadol 50 mg every 6 hour p.r.n. for chronic back pain which she was given by outpatient provider. She is disheveled, isolative, mostly in bed. Currently paranoid. 08/18: Continue current treatment regimen. Reinforced importance of medication adherence. Verbalized understanding and agreed to take her medications as prescribed. Guardianship/Prasad?s documentation were obtained today and currently in the legal section of the patient's non-electronic chart. Pharmacist informed to make notation that patient cannot refuse Haldol and paliperidone EDWARDS due to current community Prasad's order. Haldol Dec 100 mg IM Q 30 day due today. 08/19: Patient reports continued AH. Denies anxiety or depression. Denies SI/HI/VH. Encouraged to attend groups. Continue current treatment regimen. 08/20: continue current tx plan. 08/21 Patient says that she is all right and starting to feel like she is headed back to her regular self. She says she came to the hospital because she was just freaking out... And says that the freaking out part is almost gone. Patient felt that medications were adequate. However she does not want to be on her low-dose Suboxone. She says abusing sober from heroin for several months and does not want to take it but is wondering if it is on her [place] order. Hydrogenation Still Operator agreed that could be discovered but for an outpatient agrees to continue taking it 08/22 Patient remains isolative but overall more social with select peers . Says she is all right patient has AH sometimes but it does not bother her Plan Patient on 15 minute checks for safety. Admitted to [facility]. [facility]. Work with treatment team to do collateral Refer to patient to market development specialist: patient declines. Will order lab works and monitor for WBC which was elevated in the ED Haldol Dec 100mg Q 30 day due on 08/18. Invega Sustenna 234 mg Q 30 days due on 08/27. Patient educated on: diagnosis Informed Consent: understands and further education needed Reason for continued inpatient stay Substantial Risk for: rapid decompensation Time Spent With Patient Time: Total time managing care of this patient today ____ minutes.
[2025-08-22 19:48] VITALS: BP 136/87; PULSE 83; RESP 20; TEMP 36.5; O2SAT 99
[2025-08-23] MEDS: Nicotine 21 MG PATCH.TD24 TRANSDERMA (08:21)
[2025-08-23 10:34] VITALS: BP 111/55; PULSE 72; O2SAT 99
[2025-08-23 20:00] VITALS: BP 128/64; PULSE 93; RESP 18; TEMP 37.1; O2SAT 97
--- NOTE | 2025-08-23 22:30 | HO.PSYCHPN ---
Subjective Subjective Date of Service: 08/23/25 Reason For Visit: crisis Subjective Notes: Ferguson Order and Conditional Voluntary Healthcare Proxy: No Guardianship: No Medical Problems Affecting Mental Status: No Interim History: Medical record and nursing notes reviewed; case discussed during rounds with team/nursing staff, and met with patient for supportive therapy/psychoeducation, as well as medication management. Slept for 9 hours, compliant with meds. Want sober living house for substance use treatment program. Reviewed with patient criteria and groups participation is also important. She was up and attended groups as encourage to do so. Report alergic to [facility] same reaaction as she had from [facility] which she has been refused. Order benadryl PRN and once dose today this moring but she refused it. She does not want more meds. Report hearing voices last night but I am not sure. I do not pay attention to if she hears voices today. Denies anxiety/depression. Report feeling dizzy today in the afternoon. SW will refer patient to [facility] or [facility]. Flat affect, irritable edge but pleasant upon approach. She has poor insight of why she needs to take meds and think they just put one on me regarding Prasad order as she said no to if she is on Prasad on admission. Medication Compliance: Yes Side effects from medications: Yes (possible restless/dizziness ) Attending Groups: Intermittent Review of Systems Acute medical concerns: No Medical Review of Systems: unchanged Review of Systems Review of Systems Yes all other systems are reviewed and are negative Mental Status Exam Mental Status Exam Narrative: Pt is alert and oriented; behavior is less isolative, cooperative, friendly on approach; calm and more organized and willing to engage; patient is not in distress; dressed in casual attire, unkempt; mood is described as fine and affect congruent, brighter; eye contact appropriate; Speech is normal rate, volume and prosody and not pressured; some psychomotor retardation present; thought process is organized and goal directed; Thought content is on tx; otherwise no delusional ideations expressed; denies any SI/HI. Denies AVH though somewhat appears internally preoccupied Patients insight and judgment improved, likely close to baseline Diagnostics Vital Signs (24Hr): Vital Signs - 24 hr 08/23/25 10:34 08/23/25 20:00 Temperature 98.8 F Pulse Rate 72 93 Respiratory Rate 18 Blood Pressure 111/55 L 128/64 Pulse Oximetry 99 97 Oxygen Delivery Method Room Air Room Air BMI result Body Mass Index 34.7 Labs 08/15/25 17:40 08/15/25 17:40 Medications Medications Current Medications Acetaminophen (Acetaminophen 325 Mg Tablet) 650 mg PO Q6H PRN PRN Reason: Headache/Pain, Scale 1-10 Al Hydroxide/Mg Hydroxide (Magnesium Hydrox/Alum Hydrox 30 Ml Oral.Susp) 30 ml PO Q6H PRN PRN Reason: Heartburn/Nausea Buprenorphine HCl (Buprenorphine Hcl 2 Mg Tab.Subl) 2 mg SUBLINGUAL DAILY [facility] Last Admin: 08/23/25 08:20 Dose: 2 mg Chlorpromazine HCl (Chlorpromazine Hcl 100 Mg Tablet) 100 mg PO Q6H PRN PRN Reason: Anxiety Last Admin: 08/19/25 17:13 Dose: 100 mg Diphenhydramine HCl (Diphenhydramine Hcl 25 Mg Capsule) 25 mg PO Q6H PRN PRN Reason: EPS Haloperidol Decanoate (Haloperidol Decanoate 50 Mg/Ml Vial) 100 mg IM Q30D [facility] Last Admin: 08/18/25 16:24 Dose: 100 mg Hydroxyzine HCl (Hydroxyzine Hcl 25 Mg Tablet) 25 mg PO Q6H PRN PRN Reason: mild anxiety Lactulose (Lactulose 20 Gm/30 Ml Solution) 10 gm PO DAILY PRN PRN Reason: Constipation Lidocaine (Lidocaine 4 % Patch Adh..Patch) 1 patch TRANSDERMA DAILY [facility]; Protocol Last Admin: 08/23/25 08:20 Dose: Not Given Magnesium Hydroxide (Milk Of Magnesia 30 Ml Oral.Susp) 30 ml PO DAILY PRN PRN Reason: Constipation Nicotine (Nicotine 21 Mg Patch.Td24) 21 mg TRANSDERMA DAILY PRN PRN Reason: nicotine craving Last Admin: 08/23/25 08:21 Dose: 21 mg Nicotine Polacrilex (Nicotine Polacrilex 2 Mg Gum) 2 mg BUCCAL Q2H PRN PRN Reason: Nicotine Cravings Last Admin: 08/23/25 19:33 Dose: 2 mg Paliperidone Palmitate (Paliperidone Palmitate 234 Mg/1.5 Ml Syringe) 234 mg IM Q30D [facility] Tramadol HCl (Tramadol Hcl 50 Mg Tablet) 50 mg PO Q6H PRN PRN Reason: Severe back pain as home med Last Admin: 08/23/25 16:38 Dose: 50 mg Trazodone HCl (Trazodone Hcl 50 Mg Tablet) 50 mg PO BEDTIME MRX1 PRN PRN Reason: Insomnia Allergies Allergies Allergy/AdvReac Type Severity Reaction Status Date / Time lamotrigine (From Lamictal) Allergy Shortness Verified 08/16/25 18:32 of Breath Assessment & Plan Assessment & Plan (1) Paranoid: Status: Acute Code(s): F22 - Delusional disorders (2) Anxiety and depression: Status: Acute Code(s): F41.9 - Anxiety disorder, unspecified; F32.A - Depression, unspecified (3) Cocaine abuse: Status: Acute Code(s): F14.10 - Cocaine abuse, uncomplicated (4) Opiate dependence: Status: Acute Code(s): F11.20 - Opioid dependence, uncomplicated Plan HPI: Patient is a 39 years old Swedish-speaking female was be BIBA secondary to feeling unsafe. Patient reports that she believes that staff trying to hurt, giving her shots against her will, and giving medication she does not want to. Denies SI/SIB/HI, AVH I do not feel safe at home, so staff called . Patient has been living in the longterm for a couple months after being discharged from [facility] after 5 years of living there. Reported that she has been using crack cocaine 3 days a week and states I used a lot . She does not want to return to the longterm as she is not safe there. Formulation/clinical reasoning: She strongly declined medication, and plan not to take them. She appears to be depressed and anxious but denies it, incongruent mood and affect. Denies paranoid or hallucinations, but appeared to be very paranoid and delusions. She has poor and impaired insight and poor judgment. She believes she has no mental health issues that need medications. Also increased substance use while in longterm. We will do collateral with longterm to obtain more information regarding medication history. Not able to discuss history mental health diagnosis, she meets criteria for anxiety, and depression, substance use disorder, paranoid to rule out substance induce mood/psychosis. As mention above, need collateral with longterm regarding mental health and treatment history. U tox positive for fentanyl, and Suboxone. Monotor for W?W/D symptoms and provide comfort medications. Hospital course: 08/16/25: Continue with home meds. She is on suboxone daily but refuse it this morning. She has Thorazine p.r.n. available for agitation. Tramadol 50 mg every 6 hour p.r.n. for chronic back pain which she was given by outpatient provider. She is disheveled, isolative, mostly in bed. Currently paranoid. 08/18: Continue current treatment regimen. Reinforced importance of medication adherence. Verbalized understanding and agreed to take her medications as prescribed. Guardianship/Prasad?s documentation were obtained today and currently in the legal section of the patient's non-electronic chart. Pharmacist informed to make notation that patient cannot refuse Haldol and paliperidone EDWARDS due to current [facility] Prasad's order. Haldol Dec 100 mg IM Q 30 day due today. 08/19: Patient reports continued AH. Denies anxiety or depression. Denies SI/HI/VH. Encouraged to attend groups. Continue current treatment regimen. 08/20: continue current tx plan. 08/21 Patient says that she is all right and starting to feel like she is headed back to her regular self. She says she came to the hospital because she was just freaking out... And says that the freaking out part is almost gone. Patient felt that medications were adequate. However she does not want to be on her low-dose Suboxone. She says abusing sober from heroin for several months and does not want to take it but is wondering if it is on her Ferguson order. Ranch Cook agreed that could be discovered but for an outpatient agrees to continue taking it 08/22 Patient remains isolative but overall more social with select peers . Says she is all right patient has AH sometimes but it does not bother her 08/23/25: Slept for 9 hours, compliant with meds. Want sober living house for substance use treatment program. Reviewed with patient criteria and groups participation is also important. She was up and attended groups as encourage to do so. Report allergic to Cogentin same reaction as she had from Lamictal which she has been refused. Order benadryl PRN and once dose today this morning but she refused it. She does not want more meds. Report hearing voices last night but I am not sure. I do not pay attention to if she hears voices today and what the voices were about yesterday Denies anxiety/depression. Report feeling dizzy today in the afternoon. SW will refer patient to [facility] or [facility]. Flat affect, irritable edge but pleasant upon approach. She has poor insight of why she needs to take meds and think they just put one on me regarding Prasad order as she said no to if she is on Prasad on admission. Benadrul 25mg [id number] PRN for EPS. Reports she is allergic to Congentin. Need to confirm with GH. Plan Patient on 15 minute checks for safety. Admitted to [facility]. Work with treatment team to do collateral Refer to patient to sales administration specialist: patient declines. Will order lab works and monitor for WBC which was elevated in the ED Haldol Dec 100mg Q 30 day due on 08/18 Received. Invega Sustenna 234 mg Q 30 days due on 08/27. Patient educated on: diagnosis, medication risk/benefits, substance abuse and therapeutic strategies Informed Consent: further education needed Reason for continued inpatient stay Substantial Risk for: med/psych decompensation Time Spent With Patient Time: Total time managing care of this patient today ____ minutes.
[2025-08-24] MEDS: Nicotine 21 MG PATCH.TD24 TRANSDERMA (09:07)
[2025-08-24 21:35] VITALS: BP 144/66; PULSE 87; RESP 16; TEMP 36.9; O2SAT 98
--- NOTE | 2025-08-24 21:47 | HO.PSYCHPN ---
Subjective Subjective Date of Service: 08/24/25 Reason For Visit: crisis Subjective Notes: 3 Day Medical Problems Affecting Mental Status: No Interim History: Medical record and nursing notes reviewed; case discussed during rounds with team/nursing staff, and met with patient for supportive therapy/psychoeducation, as well as medication management. Met with patient in her room after breakfast, reports no dizziness, nauseous or vomiting. Denies hallucinations, denies depression and anxiety. Patient slept for 10 hours and have no appetite issues. Compliant with medication except for lidocaine patch/cream. Blunted affect, less paranoid. She is willingly to return to the longterm. Review with patient regarding discharge plan if she is not accepted at [facility]. She he is also receptive to the plan of giving Invega Sustenna 1 day earlier on 08/26. Continued to encourage groups. field worker will reach out to [facility] prior to discharge to make sure patient have resume services. She has absolutely improve in psychotic behavior, less paranoid, more receptive to the medication plan. Shower, but appeared to poor ADLs, unkempt hair. She have the same blankets with a lot of coffee stains while in bed. Medication Compliance: Yes Side effects from medications: No Attending Groups: Intermittent Review of Systems Acute medical concerns: No Medical Review of Systems: unchanged Review of Systems Review of Systems Yes all other systems are reviewed and are negative Mental Status Exam Mental Status Exam Narrative: Pt is alert and oriented; behavior is less isolative, cooperative, friendly on approach; calm and more organized and willing to engage; patient is not in distress; dressed in casual attire, unkempt; mood is described as good and affect congruent, brighter; eye contact appropriate; Speech is normal rate, volume and prosody and not pressured; some psychomotor retardation present; thought process is organized and goal directed; Thought content is on tx; otherwise no delusional ideations expressed; denies any SI/HI. Denies AVH though somewhat appears with minimum of internally preoccupied. Patients insight and judgment improved, likely close to baseline Diagnostics Vital Signs (24Hr): Vital Signs - 24 hr 08/24/25 21:35 Temperature 98.4 F Pulse Rate 87 Respiratory Rate 16 Blood Pressure 144/66 H Pulse Oximetry 98 Oxygen Delivery Method Room Air BMI result Body Mass Index 34.7 Labs 08/15/25 17:40 08/15/25 17:40 Medications Medications Current Medications Acetaminophen (Acetaminophen 325 Mg Tablet) 650 mg PO Q6H PRN PRN Reason: Headache/Pain, Scale 1-10 Last Admin: 08/24/25 21:32 Dose: 650 mg Al Hydroxide/Mg Hydroxide (Magnesium Hydrox/Alum Hydrox 30 Ml Oral.Susp) 30 ml PO Q6H PRN PRN Reason: Heartburn/Nausea Buprenorphine HCl (Buprenorphine Hcl 2 Mg Tab.Subl) 2 mg SUBLINGUAL DAILY [facility] Last Admin: 08/24/25 09:07 Dose: 2 mg Chlorpromazine HCl (Chlorpromazine Hcl 100 Mg Tablet) 100 mg PO Q6H PRN PRN Reason: Anxiety Last Admin: 08/19/25 17:13 Dose: 100 mg Diphenhydramine HCl (Diphenhydramine Hcl 25 Mg Capsule) 25 mg PO Q6H PRN PRN Reason: EPS Haloperidol Decanoate (Haloperidol Decanoate 50 Mg/Ml Vial) 100 mg IM Q30D [facility] Last Admin: 08/18/25 16:24 Dose: 100 mg Hydroxyzine HCl (Hydroxyzine Hcl 25 Mg Tablet) 25 mg PO Q6H PRN PRN Reason: mild anxiety Lactulose (Lactulose 20 Gm/30 Ml Solution) 10 gm PO DAILY PRN PRN Reason: Constipation Lidocaine (Lidocaine 4 % Patch Adh..Patch) 1 patch TRANSDERMA DAILY [facility]; Protocol Last Admin: 08/24/25 09:09 Dose: Not Given Magnesium Hydroxide (Milk Of Magnesia 30 Ml Oral.Susp) 30 ml PO DAILY PRN PRN Reason: Constipation Nicotine (Nicotine 21 Mg Patch.Td24) 21 mg TRANSDERMA DAILY PRN PRN Reason: nicotine craving Last Admin: 08/24/25 09:07 Dose: 21 mg Nicotine Polacrilex (Nicotine Polacrilex 2 Mg Gum) 2 mg BUCCAL Q2H PRN PRN Reason: Nicotine Cravings Last Admin: 08/24/25 09:07 Dose: 2 mg Paliperidone Palmitate (Paliperidone Palmitate 234 Mg/1.5 Ml Syringe) 234 mg IM Q30D [facility] Tramadol HCl (Tramadol Hcl 50 Mg Tablet) 50 mg PO Q6H PRN PRN Reason: Severe back pain as home med Last Admin: 08/24/25 16:13 Dose: 50 mg Trazodone HCl (Trazodone Hcl 50 Mg Tablet) 50 mg PO BEDTIME MRX1 PRN PRN Reason: Insomnia Allergies Allergies Allergy/AdvReac Type Severity Reaction Status Date / Time lamotrigine (From Lamictal) Allergy Shortness Verified 08/16/25 18:32 of Breath Assessment & Plan Assessment & Plan (1) Paranoid: Status: Acute Code(s): F22 - Delusional disorders (2) Anxiety and depression: Status: Acute Code(s): F41.9 - Anxiety disorder, unspecified; F32.A - Depression, unspecified (3) Cocaine abuse: Status: Acute Code(s): F14.10 - Cocaine abuse, uncomplicated (4) Opiate dependence: Status: Acute Code(s): F11.20 - Opioid dependence, uncomplicated Plan HPI: Patient is a 39 years old [place]ovan-speaking female was be BIBA secondary to feeling unsafe. Patient reports that she believes that staff trying to hurt, giving her shots against her will, and giving medication she does not want to. Denies SI/SIB/HI, AVH I do not feel safe at home, so staff called . Patient has been living in the longterm for a couple months after being discharged from [facility] after 5 years of living there. Reported that she has been using crack cocaine 3 days a week and states I used a lot . She does not want to return to the longterm as she is not safe there. Formulation/clinical reasoning: She strongly declined medication, and plan not to take them. She appears to be depressed and anxious but denies it, incongruent mood and affect. Denies paranoid or hallucinations, but appeared to be very paranoid and delusions. She has poor and impaired insight and poor judgment. She believes she has no mental health issues that need medications. Also increased substance use while in longterm. We will do collateral with longterm to obtain more information regarding medication history. Not able to discuss history mental health diagnosis, she meets criteria for anxiety, and depression, substance use disorder, paranoid to rule out substance induce mood/psychosis. As mention above, need collateral with longterm regarding mental health and treatment history. U tox positive for fentanyl, and Suboxone. Monotor for W?W/D symptoms and provide comfort medications. Hospital course: 08/16/25: Continue with home meds. She is on suboxone daily but refuse it this morning. She has Thorazine p.r.n. available for agitation. Tramadol 50 mg every 6 hour p.r.n. for chronic back pain which she was given by outpatient provider. She is disheveled, isolative, mostly in bed. Currently paranoid. 08/18: Continue current treatment regimen. Reinforced importance of medication adherence. Verbalized understanding and agreed to take her medications as prescribed. Guardianship/Prasad?s documentation were obtained today and currently in the legal section of the patient's non-electronic chart. Pharmacist informed to make notation that patient cannot refuse Haldol and paliperidone EDWARDS due to current [facility]'s order. Haldol Dec 100 mg IM Q 30 day due today. 08/19: Patient reports continued AH. Denies anxiety or depression. Denies SI/HI/VH. Encouraged to attend groups. Continue current treatment regimen. 08/20: continue current tx plan. 08/21 Patient says that she is all right and starting to feel like she is headed back to her regular self. She says she came to the hospital because she was just freaking out... And says that the freaking out part is almost gone. Patient felt that medications were adequate. However she does not want to be on her low-dose Suboxone. She says abusing sober from heroin for several months and does not want to take it but is wondering if it is on her Ferguson order. Olive Picker agreed that could be discovered but for an outpatient agrees to continue taking it 08/22 Patient remains isolative but overall more social with select peers . Says she is all right patient has AH sometimes but it does not bother her 08/23/25: Slept for 9 hours, compliant with meds. Want sober living house for substance use treatment program. Reviewed with patient criteria and groups participation is also important. She was up and attended groups as encourage to do so. Report allergic to Cogentin same reaction as she had from Lamictal which she has been refused. Order benadryl PRN and once dose today this morning but she refused it. She does not want more meds. Report hearing voices last night but I am not sure. I do not pay attention to if she hears voices today and what the voices were about yesterday Denies anxiety/depression. Report feeling dizzy today in the afternoon. SW will refer patient to [facility] or [facility]. Flat affect, irritable edge but pleasant upon approach. She has poor insight of why she needs to take meds and think they just put one on me regarding Prasad order as she said no to if she is on Prasad on admission. Benadrul 25mg [id number] PRN for EPS. Reports she is allergic to Congentin. Need to confirm with GH. 08/24/25: Met with patient in her room after breakfast, reports no dizziness, nauseous or vomiting. Denies hallucinations, denies depression and anxiety. Patient slept for 10 hours and have no appetite issues. Compliant with medication except for lidocaine patch/cream. Blunted affect, less paranoid. She is willingly to return to the longterm. Review with patient regarding discharge plan if she is not accepted at [facility]. She he is also receptive to the plan of giving Invega Sustenna 1 day earlier on 08/26. Continued to encourage groups. field worker will reach out to [facility] prior to discharge to make sure patient have resume services. She has absolutely improve in psychotic behavior, less paranoid, more receptive to the medication plan. Shower, but appeared to poor ADLs, unkempt hair. She have the same blankets with a lot of coffee stains while in bed. Patient signed a 3 day notice on the which also was tentative day to discharge her back to longterm Plan Patient on 15 minute checks for safety. Admitted to . 3 day notice 08/27/25 Work with treatment team to do collateral Refer to patient to inclusion specialist: patient declines but agree with OP Subtance treatment program. JOHN referred patient to [facility]: pending result. Will order lab works and monitor for WBC which was elevated in the ED: Reorder for 08/25/25. Patient refused lab order for 08/17/25. Haldol Dec 100mg Q 30 day due on 08/18 Received. Invega Sustenna 234 mg Q 30 days due on 08/27. Will offer on 08/26 a day early prior to discharge. Patient educated on: diagnosis, medication risk/benefits, substance abuse and therapeutic strategies Informed Consent: understands Reason for continued inpatient stay Substantial Risk for: med/psych decompensation Time Spent With Patient Time: Total time managing care of this patient today ____ minutes.
[2025-08-25 07:50] VITALS: BP 101/58; PULSE 69; RESP 16; TEMP 36.6; O2SAT 98
--- NOTE | 2025-08-25 21:00 | P.PNPSI_ITS ---
Subjective Subjective Date of Service: 08/25/25 Reason For Visit: crisis Subjective Notes: Ferguson Order ([facility] [place]) and 3 Day Medical Problems Affecting Mental Status: No Interim History: Medical record and nursing notes reviewed; case discussed during rounds with team/nursing staff, and met with patient for supportive therapy/psychoeducation, as well as medication management. Patient slept for 8 hours. Mostly in bed, no c/o of dizziness or N/V. Shower and this morning. Denies psychotic symptoms. No delusional or paranoid statement made, would like to return to this Saturday. She does not want to retract 3-day. Will received Invega Rayneanna EDWARDS tomorrow. SW is in contact with OP team to get patient transfer safe back to . Will resume VNA services. Medication Compliance: Yes (except Lidocaine patch) Side effects from medications: No Attending Groups: No Review of Systems Acute medical concerns: No Medical Review of Systems: unchanged Review of Systems Review of Systems Yes all other systems are reviewed and are negative Mental Status Exam Mental Status Exam Narrative: Pt is alert and oriented; behavior is isolative, cooperative, friendly on approach; calm and more organized and willing to engage; patient is not in distress; dressed in casual attire, unkempt; mood is described as good and affect congruent, brighter; eye contact appropriate; Speech is normal rate, volume and prosody and not pressured; some psychomotor retardation present; thought process is organized and goal directed; Thought content is on tx; otherwise no delusional ideations expressed; denies any SI/HI. Denies AVH though somewhat appears with minimum of internally preoccupied. Patients insight and judgment improved, likely close to baseline Diagnostics Vital Signs (24Hr): Vital Signs - 24 hr 08/24/25 21:35 08/25/25 07:50 Temperature 98.4 F 97.9 F Pulse Rate 87 69 Respiratory Rate 16 16 Blood Pressure 144/66 H 101/58 L Pulse Oximetry 98 98 Oxygen Delivery Method Room Air Room Air BMI result Body Mass Index 34.7 Labs 08/15/25 17:40 08/15/25 17:40 Medications Medications Current Medications Acetaminophen (Acetaminophen 325 Mg Tablet) 650 mg PO Q6H PRN PRN Reason: Headache/Pain, Scale 1-10 Last Admin: 08/24/25 21:32 Dose: 650 mg Al Hydroxide/Mg Hydroxide (Magnesium Hydrox/Alum Hydrox 30 Ml Oral.Susp) 30 ml PO Q6H PRN PRN Reason: Heartburn/Nausea Buprenorphine HCl (Buprenorphine Hcl 2 Mg Tab.Subl) 2 mg SUBLINGUAL DAILY [facility] Last Admin: 08/25/25 08:31 Dose: 2 mg Chlorpromazine HCl (Chlorpromazine Hcl 100 Mg Tablet) 100 mg PO Q6H PRN PRN Reason: Anxiety Last Admin: 08/19/25 17:13 Dose: 100 mg Diphenhydramine HCl (Diphenhydramine Hcl 25 Mg Capsule) 25 mg PO Q6H PRN PRN Reason: EPS Haloperidol Decanoate (Haloperidol Decanoate 50 Mg/Ml Vial) 100 mg IM Q30D [facility] Last Admin: 08/18/25 16:24 Dose: 100 mg Hydroxyzine HCl (Hydroxyzine Hcl 25 Mg Tablet) 25 mg PO Q6H PRN PRN Reason: mild anxiety Lactulose (Lactulose 20 Gm/30 Ml Solution) 10 gm PO DAILY PRN PRN Reason: Constipation Lidocaine (Lidocaine 4 % Patch Adh..Patch) 1 patch TRANSDERMA DAILY [facility]; Protocol Last Admin: 08/25/25 08:32 Dose: Not Given Magnesium Hydroxide (Milk Of Magnesia 30 Ml Oral.Susp) 30 ml PO DAILY PRN PRN Reason: Constipation Nicotine (Nicotine 21 Mg Patch.Td24) 21 mg TRANSDERMA DAILY PRN PRN Reason: nicotine craving Last Admin: 08/24/25 09:07 Dose: 21 mg Nicotine Polacrilex (Nicotine Polacrilex 2 Mg Gum) 2 mg BUCCAL Q2H PRN PRN Reason: Nicotine Cravings Last Admin: 08/25/25 14:16 Dose: 2 mg Paliperidone Palmitate (Paliperidone Palmitate 234 Mg/1.5 Ml Syringe) 234 mg IM Q30D [facility] Tramadol HCl (Tramadol Hcl 50 Mg Tablet) 50 mg PO Q6H PRN PRN Reason: Severe back pain as home med Last Admin: 08/25/25 16:53 Dose: 50 mg Trazodone HCl (Trazodone Hcl 50 Mg Tablet) 50 mg PO BEDTIME MRX1 PRN PRN Reason: Insomnia Allergies Allergies Allergy/AdvReac Type Severity Reaction Status Date / Time lamotrigine (From Lamictal) Allergy Shortness Verified 08/16/25 18:32 of Breath Assessment & Plan Assessment & Plan (1) Paranoid: Status: Acute Code(s): F22 - Delusional disorders (2) Anxiety and depression: Status: Acute Code(s): F41.9 - Anxiety disorder, unspecified; F32.A - Depression, unspecified (3) Cocaine abuse: Status: Acute Code(s): F14.10 - Cocaine abuse, uncomplicated (4) Opiate dependence: Status: Acute Code(s): F11.20 - Opioid dependence, uncomplicated Plan HPI: Patient is a 39 years old Malawian-speaking female was be BIBA secondary to feeling unsafe. Patient reports that she believes that staff trying to hurt, giving her shots against her will, and giving medication she does not want to. Denies SI/SIB/HI, AVH I do not feel safe at home, so staff called . Patient has been living in the senior living for a couple months after being discharged from [place] after 5 years of living there. Reported that she has been using crack cocaine 3 days a week and states I used a lot . She does not want to return to the senior living as she is not safe there. Formulation/clinical reasoning: She strongly declined medication, and plan not to take them. She appears to be depressed and anxious but denies it, incongruent mood and affect. Denies paranoid or hallucinations, but appeared to be very paranoid and delusions. She has poor and impaired insight and poor judgment. She believes she has no mental health issues that need medications. Also increased substance use while in senior living. We will do collateral with senior living to obtain more information regarding medication history. Not able to discuss history mental health diagnosis, she meets criteria for anxiety, and depression, substance use disorder, paranoid to rule out substance induce mood/psychosis. As mention above, need collateral with senior living regarding mental health and treatment history. U tox positive for fentanyl, and Suboxone. Monotor for W?W/D symptoms and provide comfort medications. Hospital course: 08/16/25: Continue with home meds. She is on suboxone daily but refuse it this morning. She has Thorazine p.r.n. available for agitation. Tramadol 50 mg every 6 hour p.r.n. for chronic back pain which she was given by outpatient provider. She is disheveled, isolative, mostly in bed. Currently paranoid. 08/18: Continue current treatment regimen. Reinforced importance of medication adherence. Verbalized understanding and agreed to take her medications as prescribed. Guardianship/Prasad?s documentation were obtained today and currently in the legal section of the patient's non-electronic chart. Pharmacist informed to make notation that patient cannot refuse Haldol and paliperidone EDWARDS due to current community Prasad's order. Haldol Dec 100 mg IM Q 30 day due today. 08/19: Patient reports continued AH. Denies anxiety or depression. Denies SI/HI/VH. Encouraged to attend groups. Continue current treatment regimen. 08/20: continue current tx plan. 08/21 Patient says that she is all right and starting to feel like she is headed back to her regular self. She says she came to the hospital because she was just freaking out... And says that the freaking out part is almost gone. Patient felt that medications were adequate. However she does not want to be on her low-dose Suboxone. She says abusing sober from heroin for several months and does not want to take it but is wondering if it is on her Ferguson order. Carpet Weaver agreed that could be discovered but for an outpatient agrees to continue taking it 08/22 Patient remains isolative but overall more social with select peers . Says she is all right patient has AH sometimes but it does not bother her 08/23/25: Slept for 9 hours, compliant with meds. Want sober living house for substance use treatment program. Reviewed with patient criteria and groups participation is also important. She was up and attended groups as encourage to do so. Report allergic to Cogentin same reaction as she had from Lamictal which she has been refused. Order benadryl PRN and once dose today this morning but she refused it. She does not want more meds. Report hearing voices last night but I am not sure. I do not pay attention to if she hears voices today and what the voices were about yesterday Denies anxiety/depression. Report feeling dizzy today in the afternoon. SW will refer patient to [facility] or [facility]. Flat affect, irritable edge but pleasant upon approach. She has poor insight of why she needs to take meds and think they just put one on me regarding Prasad order as she said no to if she is on Prasad on admission. Benadrul 25mg [id number] PRN for EPS. Reports she is allergic to Congentin. Need to confirm with . 08/24/25: Met with patient in her room after breakfast, reports no dizziness, nauseous or vomiting. Denies hallucinations, denies depression and anxiety. Patient slept for 10 hours and have no appetite issues. Compliant with medication except for lidocaine patch/cream. Blunted affect, less paranoid. She is willingly to return to the senior living. Review with patient regarding discharge plan if she is not accepted at [facility]. She he is also receptive to the plan of giving Invega Sustenna 1 day earlier on 08/26. Continued to encourage groups. overhead line worker will reach out to A prior to discharge to make sure patient have resume services. She has absolutely improve in psychotic behavior, less paranoid, more receptive to the medication plan. Shower, but appeared to poor ADLs, unkempt hair. She have the same blankets with a lot of coffee stains while in bed. Patient signed a 3 day notice on the which also was tentative day to discharge her back to senior living 08/25/25: Patient slept for 8 hours. Mostly in bed, no c/o of dizziness or N/V. Shower yers and this morning. Denies psychotic symptoms. No delusional or paranoid statement made, would like to return to this Saturday. She does not want to retract 3-day. Will received Invega Sustenna EDWARDS tomorrow. JOHN is in contact with OP team to get patient transfer safe back to . Will resume VNA services. Will discontinue Lidocaine patch. Patient has been refused it. will confirm with nursing staff if patient refuses lab work this morning. Plan Patient on 15 minute checks for safety. Admitted to . 3 day notice 08/27/25. Will discharge back to . Work with treatment team to do collateral Refer to patient to clerk specialist: patient declines but agree with OP Subtance treatment program. JOHN referred patient to [facility]: pending result. Will order lab works and monitor for WBC which was elevated in the ED: Reorder for 08/25/25. Patient refused lab order for 08/17/25. Haldol Dec 100mg Q 30 day due on 08/18 Received. Invega Sustenna 234 mg Q 30 days due on 08/27. Will offer on 08/26 a day early prior to discharge. Patient educated on: diagnosis, medication risk/benefits, substance abuse and therapeutic strategies Informed Consent: understands Reason for continued inpatient stay Substantial Risk for: med/psych decompensation Time Spent With Patient Time: Total time managing care of this patient today ____ minutes.
[2025-08-26 08:40] VITALS: BP 102/63; PULSE 71; RESP 20; TEMP 36.2; O2SAT 97
[2025-08-26 09:21] VITALS: BMI 35.0
--- NOTE | 2025-08-26 09:39 | P.PNPSI_ITS ---
Subjective Subjective Date of Service: 08/26/25 Reason For Visit: crisis Subjective Notes: Ferguson Order ([facility]) and Conditional Voluntary Interim History: Medical record and nursing notes reviewed; case discussed during rounds with team/nursing staff, and met with patient for supportive therapy/psychoeducation, as well as medication management. Patient slept well, compliant with medications. Received Invega Sustenna 234 mg this morning. She declined to retracted 3 day for further monitor for side effects from medication he possible when this provider' checking her this morning. However, patient came out to the nurse station saying I want to stay until Saturday which was also the plan that treatment team asked her to do the day before to make sure that patient tolerate with the current dose, and having a better smooth transition back to the half-way. Patient appears to be isolative, pleasant and cooperative. Denies voices not know I do not pay attention . Continued to decrease in paranoid thoughts. Medication Compliance: Yes Side effects from medications: No Attending Groups: No Review of Systems Acute medical concerns: No Medical Review of Systems: unchanged Review of Systems Review of Systems Yes all other systems are reviewed and are negative Diagnostics Vital Signs (24Hr): Vital Signs - 24 hr 08/26/25 08:40 Temperature 97.2 F Pulse Rate 71 Respiratory Rate 20 Blood Pressure 102/63 Pulse Oximetry 97 Oxygen Delivery Method Room Air BMI result Body Mass Index 35.0 Labs 08/15/25 17:40 08/15/25 17:40 Medications Medications Current Medications Acetaminophen (Acetaminophen 325 Mg Tablet) 650 mg PO Q6H PRN PRN Reason: Headache/Pain, Scale 1-10 Last Admin: 08/24/25 21:32 Dose: 650 mg Al Hydroxide/Mg Hydroxide (Magnesium Hydrox/Alum Hydrox 30 Ml Oral.Susp) 30 ml PO Q6H PRN PRN Reason: Heartburn/Nausea Buprenorphine HCl (Buprenorphine Hcl 2 Mg Tab.Subl) 2 mg SUBLINGUAL DAILY [facility] Last Admin: 08/26/25 08:37 Dose: 2 mg Chlorpromazine HCl (Chlorpromazine Hcl 100 Mg Tablet) 100 mg PO Q6H PRN PRN Reason: Anxiety Last Admin: 08/19/25 17:13 Dose: 100 mg Diphenhydramine HCl (Diphenhydramine Hcl 25 Mg Capsule) 25 mg PO Q6H PRN PRN Reason: EPS Haloperidol Decanoate (Haloperidol Decanoate 50 Mg/Ml Vial) 100 mg IM Q30D [facility] Last Admin: 08/18/25 16:24 Dose: 100 mg Hydroxyzine HCl (Hydroxyzine Hcl 25 Mg Tablet) 25 mg PO Q6H PRN PRN Reason: mild anxiety Lactulose (Lactulose 20 Gm/30 Ml Solution) 10 gm PO DAILY PRN PRN Reason: Constipation Lidocaine (Lidocaine 4 % Patch Adh..Patch) 1 patch TRANSDERMA DAILY [facility]; Protocol Last Admin: 08/26/25 08:40 Dose: Not Given Magnesium Hydroxide (Milk Of Magnesia 30 Ml Oral.Susp) 30 ml PO DAILY PRN PRN Reason: Constipation Nicotine (Nicotine 21 Mg Patch.Td24) 21 mg TRANSDERMA DAILY PRN PRN Reason: nicotine craving Last Admin: 08/24/25 09:07 Dose: 21 mg Nicotine Polacrilex (Nicotine Polacrilex 2 Mg Gum) 2 mg BUCCAL Q2H PRN PRN Reason: Nicotine Cravings Last Admin: 08/25/25 14:16 Dose: 2 mg Paliperidone Palmitate (Paliperidone Palmitate 234 Mg/1.5 Ml Syringe) 234 mg IM Q30D [facility] Tramadol HCl (Tramadol Hcl 50 Mg Tablet) 50 mg PO Q6H PRN PRN Reason: Severe back pain as home med Last Admin: 08/26/25 09:14 Dose: 50 mg Trazodone HCl (Trazodone Hcl 50 Mg Tablet) 50 mg PO BEDTIME MRX1 PRN PRN Reason: Insomnia Allergies Allergies Allergy/AdvReac Type Severity Reaction Status Date / Time lamotrigine (From Lamictal) Allergy Shortness Verified 08/16/25 18:32 of Breath Assessment & Plan Assessment & Plan (1) Paranoid: Status: Acute Code(s): F22 - Delusional disorders (2) Anxiety and depression: Status: Acute Code(s): F41.9 - Anxiety disorder, unspecified; F32.A - Depression, unspecified (3) Cocaine abuse: Status: Acute Code(s): F14.10 - Cocaine abuse, uncomplicated (4) Opiate dependence: Status: Acute Code(s): F11.20 - Opioid dependence, uncomplicated Plan HPI: Patient is a 39 years old Romansh-speaking female was be BIBA secondary to feeling unsafe. Patient reports that she believes that staff trying to hurt, giving her shots against her will, and giving medication she does not want to. Denies SI/SIB/HI, AVH I do not feel safe at home, so staff called . Patient has been living in the half-way for a couple months after being discharged from [place] after 5 years of living there. Reported that she has been using crack cocaine 3 days a week and states I used a lot . She does not want to return to the half-way as she is not safe there. Formulation/clinical reasoning: She strongly declined medication, and plan not to take them. She appears to be depressed and anxious but denies it, incongruent mood and affect. Denies paranoid or hallucinations, but appeared to be very paranoid and delusions. She has poor and impaired insight and poor judgment. She believes she has no mental health issues that need medications. Also increased substance use while in half-way. We will do collateral with half-way to obtain more information regarding medication history. Not able to discuss history mental health diagnosis, she meets criteria for anxiety, and depression, substance use disorder, paranoid to rule out substance induce mood/psychosis. As mention above, need collateral with half-way regarding mental health and treatment history. U tox positive for fentanyl, and Suboxone. Monotor for W?W/D symptoms and provide comfort medications. Hospital course: 08/16/25: Continue with home meds. She is on suboxone daily but refuse it this morning. She has Thorazine p.r.n. available for agitation. Tramadol 50 mg every 6 hour p.r.n. for chronic back pain which she was given by outpatient provider. She is disheveled, isolative, mostly in bed. Currently paranoid. 08/18: Continue current treatment regimen. Reinforced importance of medication adherence. Verbalized understanding and agreed to take her medications as prescribed. Guardianship/Prasad?s documentation were obtained today and currently in the legal section of the patient's non-electronic chart. Pharmacist informed to make notation that patient cannot refuse Haldol and paliperidone EDWARDS due to current community Prasad's order. Haldol Dec 100 mg IM Q 30 day due today. 08/19: Patient reports continued AH. Denies anxiety or depression. Denies SI/HI/VH. Encouraged to attend groups. Continue current treatment regimen. 08/20: continue current tx plan. 08/21 Patient says that she is all right and starting to feel like she is headed back to her regular self. She says she came to the hospital because she was just freaking out... And says that the freaking out part is almost gone. Patient felt that medications were adequate. However she does not want to be on her low-dose Suboxone. She says abusing sober from heroin for several months and does not want to take it but is wondering if it is on her Ferguson order. Surg Physician Asst agreed that could be discovered but for an outpatient agrees to continue taking it 08/22 Patient remains isolative but overall more social with select peers . Says she is all right patient has AH sometimes but it does not bother her 08/23/25: Slept for 9 hours, compliant with meds. Want sober living house for substance use treatment program. Reviewed with patient criteria and groups participation is also important. She was up and attended groups as encourage to do so. Report allergic to Cogentin same reaction as she had from Lamictal which she has been refused. Order benadryl PRN and once dose today this morning but she refused it. She does not want more meds. Report hearing voices last night but I am not sure. I do not pay attention to if she hears voices today and what the voices were about yesterday Denies anxiety/depression. Report feeling dizzy today in the afternoon. SW will refer patient to [facility] or [facility]. Flat affect, irritable edge but pleasant upon approach. She has poor insight of why she needs to take meds and think they just put one on me regarding Prasad order as she said no to if she is on Prasad on admission. Benadrul 25mg [id number] PRN for EPS. Reports she is allergic to Congentin. Need to confirm with GH. 08/24/25: Met with patient in her room after breakfast, reports no dizziness, nauseous or vomiting. Denies hallucinations, denies depression and anxiety. Patient slept for 10 hours and have no appetite issues. Compliant with medication except for lidocaine patch/cream. Blunted affect, less paranoid. She is willingly to return to the half-way. Review with patient regarding discharge plan if she is not accepted at [facility]. She he is also receptive to the plan of giving Invega Sustenna 1 day earlier on 08/26. Continued to encourage groups. sample shoe inspector and reworker will reach out to VNA prior to discharge to make sure patient have resume services. She has absolutely improve in psychotic behavior, less paranoid, more receptive to the medication plan. Shower, but appeared to poor ADLs, unkempt hair. She have the same blankets with a lot of coffee stains while in bed. Patient signed a 3 day notice on the which also was tentative day to discharge her back to half-way 08/25/25: Patient slept for 8 hours. Mostly in bed, no c/o of dizziness or N/V. Shower and this morning. Denies psychotic symptoms. No delusional or paranoid statement made, would like to return to this Saturday. She does not want to retract 3-day. Will received Invega Sustenna EDWARDS tomorrow. JOHN is in contact with OP team to get patient transfer safe back to . Will resume VNA services. Will discontinue Lidocaine patch. Patient has been refused it. will confirm with nursing staff if patient refuses lab work this morning. 08/26/25: Patient slept well, compliant with medications. Received Invega Sustenna 234 mg this morning. She declined to retracted 3 day for further monitor for side effects from medication he possible when this provider' checking her this morning. However, patient came out to the nurse station saying I want to stay until Saturday which was also the plan that treatment team asked her to do the day before to make sure that patient tolerate with the current dose, and having a better smooth transition back to the half-way. Patient appears to be isolative, pleasant and cooperative. Denies voices not know I do not pay attention . Continued to decrease in paranoid thoughts. Will reorder CMP. Lipid profile, A1C, TSH with reflex T4. Plan Patient on 15 minute checks for safety. Admitted to . 3 day notice 08/27/25. Will discharge back to . Work with treatment team to do collateral Refer to patient to occupational health specialist: patient declines but agree with OP Subtance treatment program. JOHN referred patient to [facility]: pending result. Will order lab works and monitor for WBC which was elevated in the ED: Reorder for 08/25/25. Patient refused lab order for 08/17/25. Haldol Dec 100mg Q 30 day due on 08/18 Received. Invega Sustenna 234 mg Q 30 days due on 08/27. Will offer on 08/26 a day early prior to discharge. Reason for continued inpatient stay Substantial Risk for: med/psych decompensation Time Spent With Patient Time: Total time managing care of this patient today ____ minutes.
--- NOTE | 2025-08-26 11:55 | PC.NURSE ---
Retracted 3 day notice with Chlo[facility] Alves; treatment team notified.
[2025-08-26 20:00] VITALS: BP 131/69; PULSE 68; RESP 16; TEMP 36.6; O2SAT 97
[2025-08-27 08:57] VITALS: BP 141/62; PULSE 68; RESP 20; TEMP 36; O2SAT 97
[2025-08-27] MEDS: Nicotine 21 MG PATCH.TD24 TRANSDERMA (14:49)
--- NOTE | 2025-08-27 16:14 | HO.PSYCHPN ---
Subjective Subjective Date of Service: 08/27/25 Reason For Visit: crisis Subjective Notes: [facility] Order ([facility] ) and Conditional Voluntary Guardianship: Yes Medical Problems Affecting Mental Status: No Interim History: Medical record and nursing notes reviewed; case discussed during rounds with team/nursing staff, and met with patient for supportive therapy/psychoeducation, as well as medication management. Patient mostly in bed but pleasant and cooperative upon approach. She said yes when asked if she feels more tired after taking Invega Sustenna EDWARDS yesterday but denies SI/SIB/HI/AVH. Educate patient that taking tramadol more often also made her more sedated and tired. Denies anxiety or depression. She appears to be depressed and withdrawn which can be her baseline. No delusional or paranoia statement made. No behavior issues. Will work with SW to send medication home to preferred pharmacy. Medication Compliance: Yes Side effects from medications: No (tired) Attending Groups: No Review of Systems Medical Review of Systems: unchanged Review of Systems Review of Systems Yes all other systems are reviewed and are negative Mental Status Exam Mental Status Exam Narrative: Pt is alert and oriented; behavior is isolative, cooperative, friendly on approach; calm and more organized and willing to engage; patient is not in distress; dressed in casual attire, unkempt; mood is described as tired and affect congruent, brighter; eye contact appropriate; Speech is normal rate, volume and prosody and not pressured; some psychomotor retardation present; thought process is organized and goal directed; Thought content is on tx; otherwise no delusional ideations expressed; denies any SI/HI. Denies AVH though somewhat appears with minimum of internally preoccupied. Patients insight and judgment improved, likely close to baseline Diagnostics Vital Signs (24Hr): Vital Signs - 24 hr 08/26/25 20:00 08/27/25 08:57 Temperature 97.9 F 96.8 F Pulse Rate 68 68 Respiratory Rate 16 20 Blood Pressure 131/69 141/62 H Pulse Oximetry 97 97 Oxygen Delivery Method Room Air Room Air BMI result Body Mass Index 35.0 Labs 08/15/25 17:40 08/15/25 17:40 Medications Medications Current Medications Acetaminophen (Acetaminophen 325 Mg Tablet) 650 mg PO Q6H PRN PRN Reason: Headache/Pain, Scale 1-10 Last Admin: 08/24/25 21:32 Dose: 650 mg Al Hydroxide/Mg Hydroxide (Magnesium Hydrox/Alum Hydrox 30 Ml Oral.Susp) 30 ml PO Q6H PRN PRN Reason: Heartburn/Nausea Buprenorphine HCl (Buprenorphine Hcl 2 Mg Tab.Subl) 2 mg SUBLINGUAL DAILY [facility] Last Admin: 08/27/25 09:01 Dose: 2 mg Chlorpromazine HCl (Chlorpromazine Hcl 100 Mg Tablet) 100 mg PO Q6H PRN PRN Reason: Anxiety Last Admin: 08/19/25 17:13 Dose: 100 mg Diphenhydramine HCl (Diphenhydramine Hcl 25 Mg Capsule) 25 mg PO Q6H PRN PRN Reason: EPS Haloperidol Decanoate (Haloperidol Decanoate 50 Mg/Ml Vial) 100 mg IM Q30D [facility] Last Admin: 08/18/25 16:24 Dose: 100 mg Hydroxyzine HCl (Hydroxyzine Hcl 25 Mg Tablet) 25 mg PO Q6H PRN PRN Reason: mild anxiety Lactulose (Lactulose 20 Gm/30 Ml Solution) 10 gm PO DAILY PRN PRN Reason: Constipation Magnesium Hydroxide (Milk Of Magnesia 30 Ml Oral.Susp) 30 ml PO DAILY PRN PRN Reason: Constipation Nicotine (Nicotine 21 Mg Patch.Td24) 21 mg TRANSDERMA DAILY PRN PRN Reason: nicotine craving Last Admin: 08/27/25 14:49 Dose: 21 mg Nicotine Polacrilex (Nicotine Polacrilex 2 Mg Gum) 2 mg BUCCAL Q2H PRN PRN Reason: Nicotine Cravings Last Admin: 08/25/25 14:16 Dose: 2 mg Paliperidone Palmitate (Paliperidone Palmitate 234 Mg/1.5 Ml Syringe) 234 mg IM Q30D [facility] Last Admin: 08/26/25 10:03 Dose: 234 mg Tramadol HCl (Tramadol Hcl 50 Mg Tablet) 50 mg PO Q6H PRN PRN Reason: Severe back pain as home med Last Admin: 08/27/25 14:50 Dose: 50 mg Trazodone HCl (Trazodone Hcl 50 Mg Tablet) 50 mg PO BEDTIME MRX1 PRN PRN Reason: Insomnia Allergies Allergies Allergy/AdvReac Type Severity Reaction Status Date / Time lamotrigine (From Lamictal) Allergy Shortness Verified 08/16/25 18:32 of Breath Assessment & Plan Assessment & Plan (1) Paranoid: Status: Acute Code(s): F22 - Delusional disorders (2) Anxiety and depression: Status: Acute Code(s): F41.9 - Anxiety disorder, unspecified; F32.A - Depression, unspecified (3) Cocaine abuse: Status: Acute Code(s): F14.10 - Cocaine abuse, uncomplicated (4) Opiate dependence: Status: Acute Code(s): F11.20 - Opioid dependence, uncomplicated Plan HPI: Patient is a 39 years old Maltese-speaking female was be BIBA secondary to feeling unsafe. Patient reports that she believes that staff trying to hurt, giving her shots against her will, and giving medication she does not want to. Denies SI/SIB/HI, AVH I do not feel safe at home, so staff called . Patient has been living in the long term for a couple months after being discharged from [facility] after 5 years of living there. Reported that she has been using crack cocaine 3 days a week and states I used a lot . She does not want to return to the long term as she is not safe there. Formulation/clinical reasoning: She strongly declined medication, and plan not to take them. She appears to be depressed and anxious but denies it, incongruent mood and affect. Denies paranoid or hallucinations, but appeared to be very paranoid and delusions. She has poor and impaired insight and poor judgment. She believes she has no mental health issues that need medications. Also increased substance use while in long term. We will do collateral with long term to obtain more information regarding medication history. Not able to discuss history mental health diagnosis, she meets criteria for anxiety, and depression, substance use disorder, paranoid to rule out substance induce mood/psychosis. As mention above, need collateral with long term regarding mental health and treatment history. U tox positive for fentanyl, and Suboxone. Monotor for W?W/D symptoms and provide comfort medications. Hospital course: 08/16/25: Continue with home meds. She is on suboxone daily but refuse it this morning. She has Thorazine p.r.n. available for agitation. Tramadol 50 mg every 6 hour p.r.n. for chronic back pain which she was given by outpatient provider. She is disheveled, isolative, mostly in bed. Currently paranoid. 08/18: Continue current treatment regimen. Reinforced importance of medication adherence. Verbalized understanding and agreed to take her medications as prescribed. Guardianship/Prasad?s documentation were obtained today and currently in the legal section of the patient's non-electronic chart. Pharmacist informed to make notation that patient cannot refuse Haldol and paliperidone EDWARDS due to current community Prasad's order. Haldol Dec 100 mg IM Q 30 day due today. 08/19: Patient reports continued AH. Denies anxiety or depression. Denies SI/HI/VH. Encouraged to attend groups. Continue current treatment regimen. 08/20: continue current tx plan. 08/21 Patient says that she is all right and starting to feel like she is headed back to her regular self. She says she came to the hospital because she was just freaking out... And says that the freaking out part is almost gone. Patient felt that medications were adequate. However she does not want to be on her low-dose Suboxone. She says abusing sober from heroin for several months and does not want to take it but is wondering if it is on her [facility] order. Shale Miner agreed that could be discovered but for an outpatient agrees to continue taking it 08/22 Patient remains isolative but overall more social with select peers . Says she is all right patient has AH sometimes but it does not bother her 08/23/25: Slept for 9 hours, compliant with meds. Want sober living house for substance use treatment program. Reviewed with patient criteria and groups participation is also important. She was up and attended groups as encourage to do so. Report allergic to Cogentin same reaction as she had from Lamictal which she has been refused. Order benadryl PRN and once dose today this morning but she refused it. She does not want more meds. Report hearing voices last night but I am not sure. I do not pay attention to if she hears voices today and what the voices were about yesterday Denies anxiety/depression. Report feeling dizzy today in the afternoon. SW will refer patient to [facility] or [facility]. Flat affect, irritable edge but pleasant upon approach. She has poor insight of why she needs to take meds and think they just put one on me regarding Prasad order as she said no to if she is on Prasad on admission. Benadrul 25mg [id number] PRN for EPS. Reports she is allergic to Congentin. Need to confirm with . 08/24/25: Met with patient in her room after breakfast, reports no dizziness, nauseous or vomiting. Denies hallucinations, denies depression and anxiety. Patient slept for 10 hours and have no appetite issues. Compliant with medication except for lidocaine patch/cream. Blunted affect, less paranoid. She is willingly to return to the long term. Review with patient regarding discharge plan if she is not accepted at [facility]. She he is also receptive to the plan of giving Invega Sustenna 1 day earlier on 08/26. Continued to encourage groups. delivery crew worker will reach out to [facility] prior to discharge to make sure patient have resume services. She has absolutely improve in psychotic behavior, less paranoid, more receptive to the medication plan. Shower, but appeared to poor ADLs, unkempt hair. She have the same blankets with a lot of coffee stains while in bed. Patient signed a 3 day notice on the which also was tentative day to discharge her back to long term 08/25/25: Patient slept for 8 hours. Mostly in bed, no c/o of dizziness or N/V. Shower yers and this morning. Denies psychotic symptoms. No delusional or paranoid statement made, would like to return to this Saturday. She does not want to retract 3-day. Will received Invega Sustenna EDWARDS tomorrow. SW is in contact with OP team to get patient transfer safe back to . Will resume [facility] services. Will discontinue Lidocaine patch. Patient has been refused it. will confirm with nursing staff if patient refuses lab work this morning. 08/26/25: Patient slept well, compliant with medications. Received Invega Sustenna 234 mg this morning. She declined to retracted 3 day for further monitor for side effects from medication he possible when this provider' checking her this morning. However, patient came out to the nurse station saying I want to stay until Saturday which was also the plan that treatment team asked her to do the day before to make sure that patient tolerate with the current dose, and having a better smooth transition back to the long term. Patient appears to be isolative, pleasant and cooperative. Denies voices not know I do not pay attention . Continued to decrease in paranoid thoughts. Will reorder CMP. Lipid profile, A1C, TSH with reflex T4. 08/27/25: Patient mostly in bed but pleasant and cooperative upon approach. She said yes when asked if she feels more tired after taking Invega Sustenna EDWARDS yesterday but denies SI/SIB/HI/AVH. Educate patient that taking tramadol more often also made her more sedated and tired. Denies anxiety or depression. She appears to be depressed and withdrawn which can be her baseline. No delusional or paranoia statement made. No behavior issues. Will work with to send medication home to preferred pharmacy. Plan Patient on 15 minute checks for safety. Admitted to . 3 day notice 08/27/25. Will discharge back to . Work with treatment team to do collateral Refer to patient to administrative services specialist: patient declines but agree with OP Subtance treatment program. SW referred patient to [facility]: pending result. Will order lab works and monitor for WBC which was elevated in the ED: Reorder for 08/25/25. Patient refused lab order for 08/17/25. Haldol Dec 100mg Q 30 day due on 08/18 Received. Invega Sustenna 234 mg Q 30 days due on 08/27. Will offer on 08/26 prior to discharge. Patient educated on: diagnosis, medication risk/benefits, substance abuse and therapeutic strategies Informed Consent: understands Reason for continued inpatient stay Substantial Risk for: med/psych decompensation Time Spent With Patient Time: Total time managing care of this patient today ____ minutes.
[2025-08-27 20:00] VITALS: BP 109/60; PULSE 73; RESP 18; TEMP 35.8; O2SAT 96
--- NOTE | 2025-08-28 07:43 | HO.PSYCHPN ---
Subjective Subjective Date of Service: 08/28/25 Reason For Visit: crisis Subjective Notes: Conditional Voluntary Healthcare Proxy: No Guardianship: No Medical Problems Affecting Mental Status: No Interim History: 39 yo waking in [facility]- reports she is indeed on 2 EDWARDS haldol and invga= pt not sure why- co both feet/ankles hurting no swelling- slept 9 hr- denying any complaints- Medication Compliance: Yes Side effects from medications: No Attending Groups: Intermittent Review of Systems Acute medical concerns: No Medical Review of Systems: changed Review of Systems: co both feet hurting- or lower legs- not clear- no swelling noted Mental Status Exam Mental Status Exam Patient Appearance: Unkempt Patient Orientation: Person, Place, Time and Situation Level of Consciousness: Awake Patient Behavior: Passive and Poor Eye Contact Mood Description: Apathetic Affect Description: Blunted Patient Cognition Impaired: No Ability to Follow Directions: Fair Speech Pattern: Impoverished Thought Process: Intact and Evasive Thought Content: positive for [place] and positive for Poverty of Content Judgement: Fair Diagnostics Vital Signs (24Hr): Vital Signs - 24 hr 08/27/25 08:57 08/27/25 20:00 Temperature 96.8 F 96.4 F L Pulse Rate 68 73 Respiratory Rate 20 18 Blood Pressure 141/62 H 109/60 Pulse Oximetry 97 96 Oxygen Delivery Method Room Air Room Air BMI result Body Mass Index 35.0 Labs 08/15/25 17:40 08/15/25 17:40 Medications Medications Current Medications Acetaminophen (Acetaminophen 325 Mg Tablet) 650 mg PO Q6H PRN PRN Reason: Headache/Pain, Scale 1-10 Last Admin: 08/24/25 21:32 Dose: 650 mg Al Hydroxide/Mg Hydroxide (Magnesium Hydrox/Alum Hydrox 30 Ml Oral.Susp) 30 ml PO Q6H PRN PRN Reason: Heartburn/Nausea Buprenorphine HCl (Buprenorphine Hcl 2 Mg Tab.Subl) 2 mg SUBLINGUAL DAILY [facility] Last Admin: 08/27/25 09:01 Dose: 2 mg Chlorpromazine HCl (Chlorpromazine Hcl 100 Mg Tablet) 100 mg PO Q6H PRN PRN Reason: Anxiety Last Admin: 08/19/25 17:13 Dose: 100 mg Diphenhydramine HCl (Diphenhydramine Hcl 25 Mg Capsule) 25 mg PO Q6H PRN PRN Reason: EPS Haloperidol Decanoate (Haloperidol Decanoate 50 Mg/Ml Vial) 100 mg IM Q30D [facility] Last Admin: 08/18/25 16:24 Dose: 100 mg Hydroxyzine HCl (Hydroxyzine Hcl 25 Mg Tablet) 25 mg PO Q6H PRN PRN Reason: mild anxiety Lactulose (Lactulose 20 Gm/30 Ml Solution) 10 gm PO DAILY PRN PRN Reason: Constipation Magnesium Hydroxide (Milk Of Magnesia 30 Ml Oral.Susp) 30 ml PO DAILY PRN PRN Reason: Constipation Nicotine (Nicotine 21 Mg Patch.Td24) 21 mg TRANSDERMA DAILY PRN PRN Reason: nicotine craving Last Admin: 08/27/25 14:49 Dose: 21 mg Nicotine Polacrilex (Nicotine Polacrilex 2 Mg Gum) 2 mg BUCCAL Q2H PRN PRN Reason: Nicotine Cravings Last Admin: 08/25/25 14:16 Dose: 2 mg Paliperidone Palmitate (Paliperidone Palmitate 234 Mg/1.5 Ml Syringe) 234 mg IM Q30D [facility] Last Admin: 08/26/25 10:03 Dose: 234 mg Tramadol HCl (Tramadol Hcl 50 Mg Tablet) 50 mg PO Q6H PRN PRN Reason: Severe back pain as home med Last Admin: 08/27/25 14:50 Dose: 50 mg Trazodone HCl (Trazodone Hcl 50 Mg Tablet) 50 mg PO BEDTIME MRX1 PRN PRN Reason: Insomnia Allergies Allergies Allergy/AdvReac Type Severity Reaction Status Date / Time lamotrigine (From Lamictal) Allergy Shortness Verified 08/16/25 18:32 of Breath Assessment & Plan Assessment & Plan (1) Paranoid: Status: Acute Code(s): F22 - Delusional disorders (2) Anxiety and depression: Status: Acute Code(s): F41.9 - Anxiety disorder, unspecified; F32.A - Depression, unspecified (3) Cocaine abuse: Status: Acute Code(s): F14.10 - Cocaine abuse, uncomplicated (4) Opiate dependence: Status: Acute Code(s): F11.20 - Opioid dependence, uncomplicated Plan HPI: Patient is a 39 years old Czech-speaking female was be BIBA secondary to feeling unsafe. Patient reports that she believes that staff trying to hurt, giving her shots against her will, and giving medication she does not want to. Denies SI/SIB/HI, AVH I do not feel safe at home, so staff called . Patient has been living in the correction for a couple months after being discharged from [facility] after 5 years of living there. Reported that she has been using crack cocaine 3 days a week and states I used a lot . She does not want to return to the correction as she is not safe there. Formulation/clinical reasoning: She strongly declined medication, and plan not to take them. She appears to be depressed and anxious but denies it, incongruent mood and affect. Denies paranoid or hallucinations, but appeared to be very paranoid and delusions. She has poor and impaired insight and poor judgment. She believes she has no mental health issues that need medications. Also increased substance use while in correction. We will do collateral with correction to obtain more information regarding medication history. Not able to discuss history mental health diagnosis, she meets criteria for anxiety, and depression, substance use disorder, paranoid to rule out substance induce mood/psychosis. As mention above, need collateral with correction regarding mental health and treatment history. U tox positive for fentanyl, and Suboxone. Monotor for W?W/D symptoms and provide comfort medications. Hospital course: 08/16/25: Continue with home meds. She is on suboxone daily but refuse it this morning. She has Thorazine p.r.n. available for agitation. Tramadol 50 mg every 6 hour p.r.n. for chronic back pain which she was given by outpatient provider. She is disheveled, isolative, mostly in bed. Currently paranoid. 08/18: Continue current treatment regimen. Reinforced importance of medication adherence. Verbalized understanding and agreed to take her medications as prescribed. Guardianship/Prasad?s documentation were obtained today and currently in the legal section of the patient's non-electronic chart. Pharmacist informed to make notation that patient cannot refuse Haldol and paliperidone EDWARDS due to current community Pr[facility]ad's order. Haldol Dec 100 mg IM Q 30 day due today. 08/19: Patient reports continued AH. Denies anxiety or depression. Denies SI/HI/VH. Encouraged to attend groups. Continue current treatment regimen. 08/20: continue current tx plan. 08/21 Patient says that she is all right and starting to feel like she is headed back to her regular self. She says she came to the hospital because she was just freaking out... And says that the freaking out part is almost gone. Patient felt that medications were adequate. However she does not want to be on her low-dose Suboxone. She says abusing sober from heroin for several months and does not want to take it but is wondering if it is on her [place] order. Social Welfare Clerk agreed that could be discovered but for an outpatient agrees to continue taking it 08/22 Patient remains isolative but overall more social with select peers . Says she is all right patient has AH sometimes but it does not bother her 08/23/25: Slept for 9 hours, compliant with meds. Want sober living house for substance use treatment program. Reviewed with patient criteria and groups participation is also important. She was up and attended groups as encourage to do so. Report allergic to Cogentin same reaction as she had from Lamictal which she has been refused. Order benadryl PRN and once dose today this morning but she refused it. She does not want more meds. Report hearing voices last night but I am not sure. I do not pay attention to if she hears voices today and what the voices were about yesterday Denies anxiety/depression. Report feeling dizzy today in the afternoon. SW will refer patient to [facility] or [facility]. Flat affect, irritable edge but pleasant upon approach. She has poor insight of why she needs to take meds and think they just put one on me regarding Prasad order as she said no to if she is on Prasad on admission. Benadrul 25mg S2ydclm PRN for EPS. Reports she is allergic to Congentin. Need to confirm with GH. 08/24/25: Met with patient in her room after breakfast, reports no dizziness, nauseous or vomiting. Denies hallucinations, denies depression and anxiety. Patient slept for 10 hours and have no appetite issues. Compliant with medication except for lidocaine patch/cream. Blunted affect, less paranoid. She is willingly to return to the correction. Review with patient regarding discharge plan if she is not accepted at [facility]. She he is also receptive to the plan of giving Invega Sustenna 1 day earlier on 08/26. Continued to encourage groups. petroleum refinery worker will reach out to [facility] prior to discharge to make sure patient have resume services. She has absolutely improve in psychotic behavior, less paranoid, more receptive to the medication plan. Shower, but appeared to poor ADLs, unkempt hair. She have the same blankets with a lot of coffee stains while in bed. Patient signed a 3 day notice on the which also was tentative day to discharge her back to correction 08/25/25: Patient slept for 8 hours. Mostly in bed, no c/o of dizziness or N/V. Shower yersterday and this morning. Denies psychotic symptoms. No delusional or paranoid statement made, would like to return to this Saturday. She does not want to retract 3-day. Will received Invega Sustenna EDWARDS tomorrow. JOHN is in contact with OP team to get patient transfer safe back to . Will resume [facility] services. Will discontinue Lidocaine patch. Patient has been refused it. will confirm with nursing staff if patient refuses lab work this morning. 08/26/25: Patient slept well, compliant with medications. Received Invega Sustenna 234 mg this morning. She declined to retracted 3 day for further monitor for side effects from medication he possible when this provider' checking her this morning. However, patient came out to the nurse station saying I want to stay until Saturday which was also the plan that treatment team asked her to do the day before to make sure that patient tolerate with the current dose, and having a better smooth transition back to the correction. Patient appears to be isolative, pleasant and cooperative. Denies voices not know I do not pay attention . Continued to decrease in paranoid thoughts. Will reorder CMP. Lipid profile, A1C, TSH with reflex T4. 08/27/25: Patient mostly in bed but pleasant and cooperative upon approach. She said yes when asked if she feels more tired after taking Invega Sustenna EDWARDS yesterday but denies SI/SIB/HI/AVH. Educate patient that taking tramadol more often also made her more sedated and tired. Denies anxiety or depression. She appears to be depressed and withdrawn which can be her baseline. No delusional or paranoia statement made. No behavior issues. Will work with JOHN to send medication home to preferred pharmacy. 08/28 fairly guarded with this provider- flat- CTP Plan Patient on 15 minute checks for safety. Admitted to . 3 day notice 08/27/25. Will discharge back to . Work with treatment team to do collateral Refer to patient to medical care evaluation specialist: patient declines but agree with OP Subtance treatment program. SW referred patient to [facility]: pending result. Will order lab works and monitor for WBC which was elevated in the ED: Reorder for 08/25/25. Patient refused lab order for 08/17/25. Haldol Dec 100mg Q 30 day due on 08/18 Received. Invega Sustenna 234 mg Q 30 days due on 08/27. Will offer on 08/26 prior to discharge. Patient educated on: medication risk/benefits Informed Consent: further education needed Reason for continued inpatient stay Substantial Risk for: rapid decompensation Time Spent With Patient Time: Total time managing care of this patient today ____ minutes.
[2025-08-28 08:00] VITALS: BP 119/63; PULSE 91; RESP 20; TEMP 36.1; O2SAT 97
[2025-08-28] MEDS: Nicotine 21 MG PATCH.TD24 TRANSDERMA (12:26)
[2025-08-28 20:00] VITALS: BP 111/57; PULSE 80; TEMP 2.7; TEMP 36.8; O2SAT 94
[2025-08-29 08:00] VITALS: BP 101/52; PULSE 69; RESP 18; TEMP 36.5; O2SAT 96
--- NOTE | 2025-08-29 08:14 | P.PNPSI_ITS ---
Subjective Subjective Date of Service: 08/29/25 Reason For Visit: crisis Subjective Notes: Conditional Voluntary Interim History: 39 yo WF reports she is fine- lying in bed this am- says tired- Slept ok, denying si/hi/psychosis tolerating medications denying s/e Medication Compliance: Yes Side effects from medications: No (flat affect? meds or condition) Attending Groups: No Review of Systems Acute medical concerns: No Medical Review of Systems: unchanged Mental Status Exam Mental Status Exam Narrative: lying in bed in [place] - flat affect - denying sys Diagnostics Vital Signs (24Hr): Vital Signs - 24 hr 08/28/25 20:00 Temperature 36.8 F L Pulse Rate 80 Blood Pressure 111/57 L Pulse Oximetry 94 Oxygen Delivery Method Room Air BMI result Body Mass Index 35.0 Labs 08/15/25 17:40 08/15/25 17:40 Medications Medications Current Medications Acetaminophen (Acetaminophen 325 Mg Tablet) 650 mg PO Q6H PRN PRN Reason: Headache/Pain, Scale 1-10 Last Admin: 08/24/25 21:32 Dose: 650 mg Al Hydroxide/Mg Hydroxide (Magnesium Hydrox/Alum Hydrox 30 Ml Oral.Susp) 30 ml PO Q6H PRN PRN Reason: Heartburn/Nausea Buprenorphine HCl (Buprenorphine Hcl 2 Mg Tab.Subl) 2 mg SUBLINGUAL DAILY [facility] Last Admin: 08/28/25 09:15 Dose: 2 mg Chlorpromazine HCl (Chlorpromazine Hcl 100 Mg Tablet) 100 mg PO Q6H PRN PRN Reason: Anxiety Last Admin: 08/19/25 17:13 Dose: 100 mg Diphenhydramine HCl (Diphenhydramine Hcl 25 Mg Capsule) 25 mg PO Q6H PRN PRN Reason: EPS Haloperidol Decanoate (Haloperidol Decanoate 50 Mg/Ml Vial) 100 mg IM Q30D [facility] Last Admin: 08/18/25 16:24 Dose: 100 mg Hydroxyzine HCl (Hydroxyzine Hcl 25 Mg Tablet) 25 mg PO Q6H PRN PRN Reason: mild anxiety Lactulose (Lactulose 20 Gm/30 Ml Solution) 10 gm PO DAILY PRN PRN Reason: Constipation Magnesium Hydroxide (Milk Of Magnesia 30 Ml Oral.Susp) 30 ml PO DAILY PRN PRN Reason: Constipation Nicotine (Nicotine 21 Mg Patch.Td24) 21 mg TRANSDERMA DAILY PRN PRN Reason: nicotine craving Last Admin: 08/28/25 12:26 Dose: 21 mg Nicotine Polacrilex (Nicotine Polacrilex 2 Mg Gum) 2 mg BUCCAL Q2H PRN PRN Reason: Nicotine Cravings Last Admin: 08/28/25 16:33 Dose: 2 mg Paliperidone Palmitate (Paliperidone Palmitate 234 Mg/1.5 Ml Syringe) 234 mg IM Q30D [facility] Last Admin: 08/26/25 10:03 Dose: 234 mg Tramadol HCl (Tramadol Hcl 50 Mg Tablet) 50 mg PO Q6H PRN PRN Reason: Severe back pain as home med Last Admin: 08/27/25 14:50 Dose: 50 mg Trazodone HCl (Trazodone Hcl 50 Mg Tablet) 50 mg PO BEDTIME MRX1 PRN PRN Reason: Insomnia Last Admin: 08/28/25 20:37 Dose: 50 mg Allergies Allergies Allergy/AdvReac Type Severity Reaction Status Date / Time lamotrigine (From Lamictal) Allergy Shortness Verified 08/16/25 18:32 of Breath Assessment & Plan Assessment & Plan (1) Paranoid: Status: Acute Code(s): F22 - Delusional disorders (2) Anxiety and depression: Status: Acute Code(s): F41.9 - Anxiety disorder, unspecified; F32.A - Depression, unspecified (3) Cocaine abuse: Status: Acute Code(s): F14.10 - Cocaine abuse, uncomplicated (4) Opiate dependence: Status: Acute Code(s): F11.20 - Opioid dependence, uncomplicated Plan HPI: Patient is a 39 years old Armenian-speaking female was be BIBA secondary to feeling unsafe. Patient reports that she believes that staff trying to hurt, giving her shots against her will, and giving medication she does not want to. Denies SI/SIB/HI, AVH I do not feel safe at home, so staff called . Patient has been living in the correction for a couple months after being discharged from [place] after 5 years of living there. Reported that she has been using crack cocaine 3 days a week and states I used a lot . She does not want to return to the correction as she is not safe there. Formulation/clinical reasoning: She strongly declined medication, and plan not to take them. She appears to be depressed and anxious but denies it, incongruent mood and affect. Denies paranoid or hallucinations, but appeared to be very paranoid and delusions. She has poor and impaired insight and poor judgment. She believes she has no mental health issues that need medications. Also increased substance use while in correction. We will do collateral with correction to obtain more information regarding medication history. Not able to discuss history mental health diagnosis, she meets criteria for anxiety, and depression, substance use disorder, paranoid to rule out substance induce mood/psychosis. As mention above, need collateral with correction regarding mental health and treatment history. U tox positive for fentanyl, and Suboxone. Monotor for W?W/D symptoms and provide comfort medications. Hospital course: 08/16/25: Continue with home meds. She is on suboxone daily but refuse it this morning. She has Thorazine p.r.n. available for agitation. Tramadol 50 mg every 6 hour p.r.n. for chronic back pain which she was given by outpatient provider. She is disheveled, isolative, mostly in bed. Currently paranoid. 08/18: Continue current treatment regimen. Reinforced importance of medication adherence. Verbalized understanding and agreed to take her medications as prescribed. Guardianship/Prasad?s documentation were obtained today and currently in the legal section of the patient's non-electronic chart. Pharmacist informed to make notation that patient cannot refuse Haldol and paliperidone EDWARDS due to current [facility]'s order. Haldol Dec 100 mg IM Q 30 day due today. 08/19: Patient reports continued AH. Denies anxiety or depression. Denies SI/HI/VH. Encouraged to attend groups. Continue current treatment regimen. 08/20: continue current tx plan. 08/21 Patient says that she is all right and starting to feel like she is headed back to her regular self. She says she came to the hospital because she was just freaking out... And says that the freaking out part is almost gone. Patient felt that medications were adequate. However she does not want to be on her low-dose Suboxone. She says abusing sober from heroin for several months and does not want to take it but is wondering if it is on her [place] order. Ic Designer Custom agreed that could be discovered but for an outpatient agrees to continue taking it 08/22 Patient remains isolative but overall more social with select peers . Says she is all right patient has AH sometimes but it does not bother her 08/23/25: Slept for 9 hours, compliant with meds. [facility] for substance use treatment program. Reviewed with patient criteria and groups participation is also important. She was up and attended groups as encourage to do so. Report allergic to Cogentin same reaction as she had from Lamictal which she has been refused. Order benadryl PRN and once dose today this morning but she refused it. She does not want more meds. Report hearing voices last night but I am not sure. I do not pay attention to if she hears voices today and what the voices were about yesterday Denies anxiety/depression. Report feeling dizzy today in the afternoon. SW will refer patient to [facility] or [facility]. Flat affect, irritable edge but pleasant upon approach. She has poor insight of why she needs to take meds and think they just put one on me regarding Prasad order as she said no to if she is on Prasad on admission. Benadrul 25mg [id number] PRN for EPS. Reports she is allergic to Congentin. Need to confirm with GH. 08/24/25: Met with patient in her room after breakfast, reports no dizziness, nauseous or vomiting. Denies hallucinations, denies depression and anxiety. Patient slept for 10 hours and have no appetite issues. Compliant with medication except for lidocaine patch/cream. Blunted affect, less paranoid. She is willingly to return to the correction. Review with patient regarding discharge plan if she is not accepted at [facility]. She he is also receptive to the plan of giving Invega Sustenna 1 day earlier on 08/26. Continued to encourage groups. pulley worker will reach out to [facility] prior to discharge to make sure patient have resume services. She has absolutely improve in psychotic behavior, less paranoid, more receptive to the medication plan. Shower, but appeared to poor ADLs, unkempt hair. She have the same blankets with a lot of coffee stains while in bed. Patient signed a 3 day notice on the which also was tentative day to discharge her back to correction 08/25/25: Patient slept for 8 hours. Mostly in bed, no c/o of dizziness or N/V. Shower yersterday and this morning. Denies psychotic symptoms. No delusional or paranoid statement made, would like to return to this Saturday. She does not want to retract 3-day. Will received Invega Sustenna EDWARDS tomorrow. SW is in contact with OP team to get patient transfer safe back to . Will resume VNA services. Will discontinue Lidocaine patch. Patient has been refused it. will confirm with nursing staff if patient refuses lab work this morning. 08/26/25: Patient slept well, compliant with medications. Received Invega Sustenna 234 mg this morning. She declined to retracted 3 day for further monitor for side effects from medication he possible when this provider' checking her this morning. However, patient came out to the nurse station saying I want to stay until Saturday which was also the plan that treatment team asked her to do the day before to make sure that patient tolerate with the current dose, and having a better smooth transition back to the correction. Patient appears to be isolative, pleasant and cooperative. Denies voices not know I do not pay attention . Continued to decrease in paranoid thoughts. Will reorder CMP. Lipid profile, A1C, TSH with reflex T4. 08/27/25: Patient mostly in bed but pleasant and cooperative upon approach. She said yes when asked if she feels more tired after taking Invega Sustenna EDWARDS yesterday but denies SI/SIB/HI/AVH. Educate patient that taking tramadol more often also made her more sedated and tired. Denies anxiety or depression. She appears to be depressed and withdrawn which can be her baseline. No delusional or paranoia statement made. No behavior issues. Will work with JOHN to send medication home to preferred pharmacy. 08/28 fairly guarded with this provider- [facility]- CTP 08/29 reporting she is ok to all staff and hoping for dc back to feels ok with that- CTP Plan Patient on 15 minute checks for safety. Admitted to . 3 day notice 08/27/25. Will discharge back to . Work with treatment team to do collateral Refer to patient to medical care evaluation specialist: patient declines but agree with OP Subtance treatment program. SW referred patient to [facility]: pending result. Will order lab works and monitor for WBC which was elevated in the ED: Reorder for 08/25/25. Patient refused lab order for 08/17/25. Haldol Dec 100mg Q 30 day due on 08/18 Received. Invega Sustenna 234 mg Q 30 days due on 08/27. Will offer on 08/26 prior to discharge. Reason for continued inpatient stay Substantial Risk for: rapid decompensation Time Spent With Patient Time: Total time managing care of this patient today ____ minutes.
[2025-08-29 20:00] VITALS: BP 119/59; PULSE 76; RESP 18; TEMP 36.6; O2SAT 100
[2025-08-30 08:29] VITALS: RESP 16
--- NOTE | 2025-08-30 09:14 | P.DS_ITS ---
DS: Providers Provider Date of Service: 08/30/25 Date of admission: 08/16/25 12:50 Date of discharge: 08/30/25 Primary care physician: Unknown Physician Attending physician on admission: Chloé Alves Attending physician on discharge: Chloé Alves DS: Diagnosis Discharge Diagnosis (1) Paranoid: Status: Acute (2) Anxiety and depression: Status: Acute (3) Cocaine abuse: Status: Acute (4) Opiate dependence: Status: Acute DS: Medications Discharge Medications Home Medications: Home Medications ?Medication ?Instructions ?Recorded ?Confirmed acetaminophen 650 mg PO Q8-10H PRN Pain, M ild 08/15/25 08/15/25 Previous Rx's ?Medication ?Instructions ?Recorded buprenorphine HCl 2 mg sublingual 2 mg sublingual GARY Y MAT #30 tabs 08/27/25 tablet chlorpromazine 100 mg tablet 100 mg PO Q6H PRN Severe anxiety 08/27/25 #60 tabs haloperidol decanoate 50 mg/mL 100 mg (2 mL) IM Q30D P sychosis 08/27/25 intramuscular solution #2 mL hydroxyzine HCl 25 mg tablet 25 mg PO Q6H PRN mild anx iety #30 08/27/25 tabs lactulose 10 gram/15 mL oral 10 g (15 mL) PO DAILY PRN 08/27/25 solution Constipation #1,200 mL nicotine (polacrilex) 2 mg gum 2 mg buccal Q2H PRN Dev otine 08/27/25 Cravings #100 ea nicotine 21 mg/24 hr daily 21 mg transdermal DAILY PRN 08/27/25 transdermal patch nicotine craving #28 ea paliperidone palmitate 234 mg/1.5 234 mg (1.5 mL) IM Q 30D psychosis 08/27/25 mL intramuscular syringe (Invega #1.5 mL Sustenna) tramadol 50 mg tablet 50 mg PO Q6H PRN Severe back pain 08/27/25 as home med #30 tabs Mental Status Exam Mental Status Exam Narrative: Patient presents well-groomed, casually dressed. Affect is birghter, anxious related to when/how she will be discharged back to . Speech is clear and coherent. Thought process is linear and logical. Thought content is appropriate and relevant. Patient denies suicidal or homicidal ideation intent or plan. No overt psychotic symptoms elicited. Insight is fair. Judgment is fair . Data Data Completed and Pending Completed studies during hospitalization [Text1]: 08/15/25 17:54 Urine clean catch - Clean Catch Midstream Urine Culture - Final DS: Summary Hospital Course Hospital Course: HPI: Patient is a 39 years old British-speaking female was be BIBA secondary to feeling unsafe. Patient reports that she believes that staff trying to hurt, giving her shots against her will, and giving medication she does not want to. Denies SI/SIB/HI, AVH I do not feel safe at home, so staff called . Patient has been living in the [facility] for a couple months after being discharged from [facility] after 5 years of living there. Reported that she has been using crack cocaine 3 days a week and states I used a lot . She does not want to return to the [facility] as she is not safe there. Formulation/clinical reasoning: She strongly declined medication, and plan not to take them. She appears to be depressed and anxious but denies it, incongruent mood and affect. Denies paranoid or hallucinations, but appeared to be very paranoid and delusions. She has poor and impaired insight and poor judgment. She believes she has no mental health issues that need medications. Also increased substance use while in [facility]. We will do collateral with [facility] to obtain more information regarding medication history. Not able to discuss history mental health diagnosis, she meets criteria for anxiety, and depression, substance use disorder, paranoid to rule out substance induce mood/psychosis. As mention above, need collateral with [facility] regarding mental health and treatment history. U tox positive for fentanyl, and Suboxone. Monotor for W?W/D symptoms and provide comfort medications. Hospital course: 08/16/25: Continue with home meds. She is on suboxone daily but refuse it this morning. She has Thorazine p.r.n. available for agitation. Tramadol 50 mg every 6 hour p.r.n. for chronic back pain which she was given by outpatient provider. She is disheveled, isolative, mostly in bed. Currently paranoid. 08/18: Continue current treatment regimen. Reinforced importance of medication adherence. Verbalized understanding and agreed to take her medications as prescribed. Guardianship/Prasad?s documentation were obtained today and currently in the legal section of the patient's non-electronic chart. Pharmacist informed to make notation that patient cannot refuse Haldol and paliperidone EDWARDS due to current community Prasad's order. Haldol Dec 100 mg IM Q 30 day due today. 08/19: Patient reports continued AH. Denies anxiety or depression. Denies SI/HI/VH. Encouraged to attend groups. Continue current treatment regimen. 08/20: continue current tx plan. 08/21 Patient says that she is all right and starting to feel like she is headed back to her regular self. She says she came to the hospital because she was just freaking out... And says that the freaking out part is almost gone. Patient felt that medications were adequate. However she does not want to be on her low-dose Suboxone. She says abusing sober from heroin for several months and does not want to take it but is wondering if it is on her [place] order. Hand Bender agreed that could be discovered but for an outpatient agrees to continue taking it 08/22 Patient remains isolative but overall more social with select peers . Says she is all right patient has AH sometimes but it does not bother her 08/23/25: Slept for 9 hours, compliant with meds. Want sober living house for substance use treatment program. Reviewed with patient criteria and groups participation is also important. She was up and attended groups as encourage to do so. Report allergic to Cogentin same reaction as she had from Lamictal which she has been refused. Order benadryl PRN and once dose today this morning but she refused it. She does not want more meds. Report hearing voices last night but I am not sure. I do not pay attention to if she hears voices today and wh at the voices were about yesterday Denies anxiety/depression. Report feeling dizzy today in the afternoon. SW will refer patient to [facility] or [facility]. Flat affect, irritable edge but pleasant upon approach. She has poor insight of why she needs to take meds and think they just put one on me regarding Prasad order as she said no to if she is on Prasad on admission. Benadryl 25mg [id number] PRN for EPS. Reports she is allergic to Cogentin. Need to confirm with GH. 08/24/25: Met with patient in her room after breakfast, reports no dizziness, nauseous or vomiting. Denies hallucinations, denies depression and anxiety. Patient slept for 10 hours and have no appetite issues. Compliant with medication except for lidocaine patch/cream. Blunted affect, less paranoid. She is willingly to return to the [facility]. Review with patient regarding discharge plan if she is not accepted at [facility]. She he is also receptive to the plan of giving Invega Sustenna 1 day earlier on 08/26. Continued to encourage groups. pit crew support worker will reach out to [facility] prior to discharge to make sure patient have resume services. She has absolutely improve in psychotic behavior, less paranoid, more receptive to the medication plan. Shower, but appeared to poor ADLs, unkempt hair. She have the same blankets with a lot of coffee stains while in bed. Patient signed a 3 day notice on the which also was tentative day to discharge her back to [facility] 08/25/25: Patient slept for 8 hours. Mostly in bed, no c/o of dizziness or N/V. Shower yersterday and this morning. Denies psychotic symptoms. No delusional or paranoid statement made, would like to return to this Saturday. She does not want to retract 3-day. Will received Invega Sustenna EDWARDS tomorrow. SW is in contact with OP team to get patient transfer safe back to . Will resume [facility] services. Will discontinue Lidocaine patch. Patient has been refused it. will confirm with nursing staff if patient refuses lab work this morning. 08/26/25: Patient slept well, compliant with medications. Received Invega Sustenna 234 mg this morning. She declined to retracted 3 day for further monitor for side effects from medication he possible when this provider' checking her this morning. However, patient came out to the nurse station saying I want to stay until Saturday which was also the plan that treatment team asked her to do the day before to make sure that patient tolerate with the current dose, and having a better smooth transition back to the [facility]. Patient appears to be isolative, pleasant and cooperative. Denies voices not know I do not pay attention . Continued to decrease in paranoid thoughts. Will reorder CMP. Lipid profile, A1C, TSH with reflex T4. 08/27/25: Patient mostly in bed but pleasant and cooperative upon approach. She said yes when asked if she feels more tired after taking Invega Sustenna EDWARDS yesterday but denies SI/SIB/HI/AVH. Educate patient that taking tramadol more often also made her more sedated and tired. Denies anxiety or depression. She appears to be depressed and withdrawn which can be her baseline. No delusional or paranoia statement made. No behavior issues. Will work with SW to send medication home to preferred pharmacy. 08/28 fairly guarded with this provider- [facility]. 08/29 reporting she is ok to all staff and hoping for dc back to feels ok with that- [facility]. 08/30/25: patient reports feeling safe and ready to get back to . No delusional or paranoia statement made. Patient has been refused lab works x3-4 times during hospital stay. Haldol Dec 100mg Q 30 day due on 08/18 Received. Invega Sustenna 234 mg Q 30 days offered on 08/26/25. [facility] meds sent to [facility] . Time spent discussing smoking cessation with patient: 3 to 10 minutes Status at Discharge Cognitive/behavioral status at discharge: CONDITION ON DISCHARGE: CURRENT STATUS IT RELATES TO ADMISSION CRITERIA: Stable, improved. Improvements in depression, anxiety, and suicidal ideation. Improvements in sleep, energy, and appetite. and no hallucination or paranoia/delusional thought. Functional status at discharge: independent ambulation Overall status at discharge: patient is back to baseline Time Spent with Patient Time attestation: Total time managing care of this patient today ____ minutes. Time spent: Greater than 30 minutes Discharge Plan Discharge Anticipated Discharge Date/Time: 08/30/25 11:00 Patient Disposition: Xfer Other Discharge Diagnosis: Paranoid, Chronic back pain, opioid and RONNY use D/O Referrals: [employer] [facility] [Other] - 09/01/25 11:00 am Referral Note: 09/01/2025 11:00 AM - 12:00 PM CHD Adult Comprehensive Assessment Prog: Outpatient Site: [facility] Staff: Natacha Huerta [employer] [Other] - 09/22/25 9:00 am Referral Note: 09/22/2025 09:00 AM - 09:40 AM Psychiatric E/M Established - Face To Face v2 Prog: Psychiatric Services Site: [facility] Staff: SONIA WANG Physician,Unknown J [Primary Care Provider, Medical] - 1 Week Referral Note: Pt declined f/u appt. Discharge Medications: New nicotine 21 mg/24 hr Patch 24 Hour 21 mg transdermal DAILY PRN (Reason: nicotine craving) Qty: 28 0RF nicotine (polacrilex) 2 mg Gum 2 mg buccal Q2H PRN (Reason: Nicotine Cravings) Qty: 100 0RF buprenorphine HCl 2 mg Tablet, Sublingual 2 mg sublingual DAILY Qty: 30 0RF chlorpromazine 100 mg Tablet 100 mg PO Q6H PRN (Reason: Severe anxiety ) Qty: 60 0RF haloperidol decanoate 50 mg/mL Solution 100 mg IM Q30D Qty: 2 0RF Rx Instructions: Last dose was on 08/18/25. hydroxyzine HCl 25 mg Tablet 25 mg PO Q6H PRN (Reason: mild anxiety) Qty: 30 0RF Invega Sustenna 234 mg/1.5 mL Syringe 234 mg IM Q30D Qty: 1.5 0RF Rx Instructions: Last dose given on 08/26/25. tramadol 50 mg Tablet 50 mg PO Q6H PRN (Reason: Severe back pain as home med) Qty: 30 0RF lactulose 10 gram/15 mL Solution 10 g PO DAILY PRN (Reason: Constipation) Qty: 1200 0RF Continued acetaminophen 650 mg PO Q8-10H PRN (Reason: Pain, Mild) Discontinued tramadol 50 mg PO Q6H PRN (Reason: Pain, Moderate) Haldol Decanoate 100 mg IM Q4W Invega Sustenna 234 mg IM Q4W Nicotine Tartrate 2 mg PO Q4-5H PRN (Reason: Nicotine Cravings) buprenorphine HCl 2 mg PO DAILY chlorpromazine 100 mg PO Q6-8H PRN (Reason: Anxiety) hydroxyzine HCl 25 mg PO Q8-10H PRN (Reason: Anxiety) lactulose 15 ml PO DAILY PRN (Reason: Constipation) Discharge Orders: Discharge Order (Routine); Ordered 08/30/25 Ordered By: Chloé Alves Diet: Regular diet Activity on Discharge: No Restrictions Stand Alone Forms: Patient Portal Discharge page, Community Support Print Language: British Care Plan Goals: Maintain mood and safe behaviors Take medications as prescribed Continue to pursue sobriety Practice coping skills Continue with outpatient providers and reach out to them as needed Health Concerns: Mood stability and behaviors Sobriety Plan of Treatment: Follow up with your PCP, psychiatric provider and other outpatient providers regarding above concerns Take medications as prescribed Assessment: Assessment: Risk assessment at time of discharge: Patient was interviewed prior to discharge and found to be fully oriented and without any SI or HI. Patient has improved insight and judgment and wants to continue treatment. Patient is not in imminent risk of harm to self or others and has a safety plan that includes presenting to the closest ER or calling 911 if feeling unsafe. Patient has been observed closely by nursing and unit staff throughout admission; patient has not engaged in any behaviors that suggest dangerousness to self or others and has demonstrated appropriate behaviors and impulse control Discharge Date/Time: 08/30/25 11:06
== END 2025-08-30 11:06 | disposition other institution (70) | DRG 885 ==
LOC: HO.ED 08-16 12:59 → HO.PM5 08-16 13:44
PROVIDERS: Admitting Provider Nurse Practitioner Psychiatric/Mental Health; Emergency Provider Emergency Medicine Emergency Medical Services; Visit Provider Clinical Nurse Specialist Psychiatric/Mental Health, Adult
DX: F22 Delusional disorders (principal); F11.20 Opioid dependence, uncomplicated; F17.210 Nicotine dependence, cigarettes, uncomplicated; G89.29 Other chronic pain; M54.50 Low back pain, unspecified; F19.90 Other psychoactive substance use, unspecified, uncomplicated; F14.10 Cocaine abuse, uncomplicated; F41.9 Anxiety disorder, unspecified; F32.A Depression, unspecified; Z71.6 Tobacco abuse counseling; Z79.899 Other long term (current) drug therapy
CPT/HCPCS: 36415; 80053; 80307; 81001; 81025; 85025; 87086; 93005; 99285; J0571; J1631; J2426; S9485

== ENCOUNTER 2025-08-16 12:50 | Outpatient (BNV) | payer OTHER, SELFPAY | END 2025-08-16 12:54 | PROVIDERS: Admitting Provider Nurse Practitioner Psychiatric/Mental Health; Emergency Provider Emergency Medicine Emergency Medical Services; Visit Provider Internal Medicine | DX: Z13.6 Encounter for screening for cardiovascular disorders (principal) | CPT/HCPCS: 93010 ==

== ENCOUNTER → 2025-08-16 12:50 | Outpatient (BNV) | payer OTHER, SELFPAY | PROVIDERS: Admitting Provider Nurse Practitioner Psychiatric/Mental Health; Emergency Provider Emergency Medicine Emergency Medical Services; Visit Provider Nurse Practitioner Family | DX: M54.50 Low back pain, unspecified (principal); G89.29 Other chronic pain | CPT/HCPCS: 99221; 99499 ==

== ENCOUNTER → 2025-08-16 12:50 | Outpatient (BNV) | payer OTHER, SELFPAY | PROVIDERS: Admitting Provider Nurse Practitioner Psychiatric/Mental Health; Emergency Provider Emergency Medicine Emergency Medical Services; Visit Provider Nurse Practitioner Family | DX: F22 Delusional disorders (principal); F41.9 Anxiety disorder, unspecified; F32.A Depression, unspecified; F14.10 Cocaine abuse, uncomplicated; F11.20 Opioid dependence, uncomplicated | CPT/HCPCS: 90792; 99231; 99232 ==

== ENCOUNTER 2025-10-12 15:31 | Inpatient (IN) | payer MEDICARE, MEDICAID, SELFPAY ==
[2025-10-12 15:48] VITALS: BMI 40.3
[2025-10-12 16:13] VITALS: BP 132/24; PULSE 82; RESP 18; TEMP 36.7; O2SAT 98
[2025-10-12 16:43] LABS: Hematocrit 43.6 % (37.0-47.0); Hemoglobin 14.4 g/dl (12.0-16.0); Imm Gran Abs Auto 0.24 X10*3/uL (0.00-0.03); Imm Gran Pct Auto 1.0 % (0.0-0.4); MANUAL DIFF FLAG SCAN; Mean Corpuscular HGB Conc 33.0 g/dl (31.0-35.0); Mean Corpuscular Hemoglobin 28.6 pg (27.0-33.0); Mean Corpuscular Volume 86.5 fL (80.0-98.0); NRBC Abs Auto 0.000 X10*3/uL (0.0-0.012); NRBC Pct Auto 0.0 /100WBC (0.0-0.2); Platelet Count 370 X10*3/uL (160-400); Red Blood Count 5.04 X10*6/uL (4.20-5.50); SCAN SMEAR FLAG 1; White Blood Count 22.9 X10*3/uL (4.8-10.8)
[2025-10-12 16:44] LABS: Lymphocytes Absolute Auto 6.6 X10*3/uL (1.2-4.9)
[2025-10-12 16:57] LABS: UPreg QC Valid YES
[2025-10-12 16:58] LABS: Alanine Aminotransferase 17 U/L (0-31); Albumin Level 4.6 g/dL (3.5-5.0); Alkaline Phosphatase 103 U/L (39-117); Anion Gap 15 (12-20); Aspartate Amino Transferase 22 U/L (5-31); Blood Urea Nitrogen 13 mg/dL (9-16); Calcium 9.6 mg/dL (8.4-10.2); Carbon Dioxide 21 mmol/L (22-29); Chloride 107 mmol/L (96-108); Creatinine Clr Calc Pharmacy 142.5; Estimated Glomerular Filt Rate > 60; Potassium 4.1 mmol/L (3.3-5.1); Sodium 139 mmol/L (135-145); Total Protein 7.9 g/dL (6.5-8.0)
[2025-10-12 17:01] LABS: Cannabinoid Screen Urine Not Detected (Not Detect)
--- OUTSIDE RECORDS SUMMARY | 2025-10-12 17:28 | XMS_ITS | Clinical Summary ---
Author Organization [facility] Address [address] [place] [address] Care Team Providers Care Sign Language Teacher Name Role Phone Unavailable Primary Care Provider [...] Date Last Done Comments Blood Pressure 1985 Lipid Panel 1985 Depression Screening 1989 Hepatitis C Screening 2003 DTaP,Tdap,and Td Vaccines (1 - Tdap) 2004 Pap Smear 2006 Cervical Cancer Screening 2015 HPV/Cotest 2015 COVID-19 Vaccine (2023-2 5 season) 2025 Influenza Vaccine (#1) 2025 Breast Cancer Screening 2025 Meningococcal B Vaccines Aged Out No longer eligible based on patient's age to complete this topic Meningococcal Vaccines Aged Out No lo nger eligible based on patient's age to complete this topic Pneumococcal Vaccine Aged Out No long er eligible based on patient's age to complete this topic
--- OUTSIDE RECORDS SUMMARY | 2025-10-12 17:28 | XMS_ITS | Clinical Summary ---
Author Organization [facility] [address] [place] [address] [place] [id number] Phone Care Team Providers Care Licensed Psychologist Name Role Phone Noe Bhatt MD Primary Care Provider Allergies No known active allergies Medications acetaminophen (TYLENOL) 325 mg tablet 05/19/20 25 Active buprenorphine (SUBUTEX) 2 mg 07/19/20 25 Active chlorproMAZINE (THORAZINE) 100 mg tablet 08/09/20 25 Active haloperidol decanoate (HALDOL DECANOATE) 100 mg/mL injection 09/20/20 25 Active hydrOXYzine HCL (ATARAX) 25 mg tablet 08/27/20 25 Active naproxen (NAPROSYN) 500 mg tablet 06/15/20 25 Active nicotine polacrilex (NICORETTE) 2 mg gum 05/19/20 25 Active traMADoL (ULTRAM) 50 mg tablet 08/27/20 25 Active Invega Sustenna 234 mg/1.5 mL syringe Inject 1.5 mL (234 mg total) into the shoulder, thigh, or buttocks every 30 (thirty) days. 09/22/20 25 Active tiZANidine (ZANAFLEX) 2 mg tablet Take 1 tablet (2 mg total) by mouth 3 (three) times a day if needed for muscle spasms. 90 tablet 1 10/05/20 25 Active haloperidol decanoate (HALDOL DECANOATE) 50 mg/mL injection 08/27/20 25 025 Discontinued( erapy completed) methocarbamoL (ROBAXIN) 500 mg tablet Take 1 tablet (500 mg total) by mouth 3 (three) times a day. 90 tablet 1 09/28/20 25 025 Discontinued tiZANidine (ZANAFLEX) 2 mg tablet Take 1 tablet (2 mg total) by mouth 3 (three) times a day if needed for muscle spasms. 90 tablet 1 09/28/20 25 025 Discontinued(Re order) Active Problems Problem Noted Date Diagnosed Date Heroin use 09/28/2025 Chronic midline low back pain without sciatica 1 History of hepatitis C 09/28/2025 Tobacco use disorder 09/28/2025 Anxiety 09/28/2025 Encounters Date Type Department Care Team Description 09/30/2025 Telephone Adult Medicine [address] [phone] Noe Bhatt MD 09/28/2025 1:30 PM EDT Office Visit Adult Medicine [address] [phone] Elisabeth Cooper PA Routine general medical examination at a health care facility (Primary Dx); Encounter to establish care; Encounter for screening for HIV; Screening for deficiency anemia; Encounter for screening for lipid disorder; Mammogram declined; Papanicolaou smear declined; History of hepatitis C; Heroin use; Chronic midline low back pain without sciatica; Tobacco use disorder; Thought disorder; Anxiety from Last 3 Months Surgical History Surgery Date Site/Laterality Comments BACK SURGERY Medical History Medical History Date Comments Back pain Family History Medical History Relation Name Comments No Known Problems Daughter No Known Problems Father No Known Problems Maternal Grandfather No Known Problems Maternal Grandmother House fire Mother No Known Problems Paternal Grandfather No Known Problems Paternal Grandmother No Known Problems Son Relation Name Status Comments Daughter Alive Father Alive Maternal Grandfather Maternal Grandmother Mother Paternal Grandfather Paternal Grandmother Son Alive Social History Tobacco Use Types Packs/Day Years Used Date Smoking Tobacco: Every Day Cigarettes Smokeless Tobacco: Never Tobacco Cessation:Ready to Q uit: Not Asked; Counseling Given: Not Answered Comments:Started at age 14, 1 PPD, not interested in quitting Alcohol Use Standard Drinks/Week Comments Not Currently 0 (1 standard drink = 0.6 oz pur e alcohol) Housing Instability Answer Date Recorde d Are you worried that in the next 2 months you may not have stable housing? No 09/28/2025 Food Access & Nutrition Answer Date Rec orded Do you have access to a vari ety of food including fruits and vegetables? Yes 09/28/2025 Health Literacy Answer Date Recorded How often do you need to hav e someone help you when you read instructions, pamphlets, or other written material from your doctor or pharmacy? Never 09/28/2025 Caregiver: How often do you need to have someone help you when you read instructions, pamphlets, or other written material from your doctor or pharmacy? Not on file 09/28/2025 Financial Risk Answer Date Recorded How hard is it for you to pa y for the very basics like food, housing, medical care, and air conditioning / heating? Not very hard 09/28/2025 Transportation Answer Date Recorded Has the lack of transportati on kept you from meetings, work, or from getting things needed for daily living? No Has the lack of transportati on kept you from medical appointments or from getting medications? No 09/28/2025 Social Isolation Answer Date Recorded How often do you feel lonely or isolated from th ose around you? Never 09/28/2025 Food Risk Answer Date Recorded Within the past 12 months we worried whether our food would run out before we got money to buy more. Never true 09/28/2025 Within the past 12 months th e food we bought just didn't last and we didn't have money to get more. Never true 09/28/2025 Dependent Care Answer Date Recorded Do you need help finding or paying for care for your loved ones. For example, child care director or elderly care for an older adult? No 09/28/2025 Education Answer Date Recorded Do you think completing more education or training, like finishing a GED, going to college, or learning a trade, would be helpful for you? N/A 09/28/2025 Employment and Income Answer Date Recor ded During the last four weeks, have you been actively looking for work? No 09/28/2025 Living Situation Answer Date Recorded What is your living situation? Unrecognized valu e 09/28/2025 Comments No Sex and Gender Information Value Date Recorded Sex Assigned at Not on file Legal Sex Female 8:34 PM EST Gender Identity Not on file Sexual Orientation Not on file Occupation Industry Job Start Date Job End Date disabled Not on file Not on file Not on file Obstetrics History Last Filed Vital Signs Vital Sign Reading Time Taken Comments Blood Pressure 103/67 09/28/2025 1:43 PM EDT Pulse 77 09/28/2025 1:43 PM EDT Temperature 36.1 C (97 F) 09/28/2025 1:43 PM EDT Respiratory Rate 16 09/28/2025 1:43 PM EDT Oxygen Saturation 96% 09/28/2025 1:43 PM EDT Inhaled Oxygen Concentration - - Weight 107 kg (236 lb) 09/28/2025 1:43 PM EDT Height 162.6 cm (5' 4 ) 09/28/2025 1:43 PM EDT Body Mass Index 40.51 09/28/2025 1:43 PM EDT Plan of Treatment Upcoming Encounters Date Type Department Care Team (Late st Contact Info) Description 12/29/2025 1:30 PM EST Office Visit Adult Medicine [facility] [address] [place] [phone] Noe Bhatt MD [address] [place], [place] Health Maintenance Due Date Last Done Comments Breast Cancer Screening 1985 Hepatitis A Vaccines (1 of 2 - Risk 2-dose series) 2004 Hepatitis B Vaccines (1 of 3 - 19+ 3-dose series) 2004 Cervical Cancer Screening: Pap Smear 2006 HPV Vaccines (1 - 3-dose SCD M series) 2012 Pneumococcal Vaccine: Pediatrics (0 to 5 Years) and At-Risk Patients (6 to 49 Years) (2 of 2 - PCV) 05/08/2016 05/08/2015 Cholesterol Screening (Lipid Panel) 12/27/2023 HIV Screening 12/27/2023 Hepatitis C Screening 12/27/2023 Medicare Annual Wellness Visit 12/27/2023 COVID-19 Vaccine ( - 2024-2 6 season) 2025 10/08/2022, 02/23/2022, 06/27/2021 Influenza Vaccine (#1) 2026 , 09/09/2019 Postponed from 08/02/2025 (Patient Refused) Social Influencers of Health Screening 09/28/2026 09/28/2025 DTaP,Tdap,and Td Vaccines (3 - Td or Tdap) 07/11/2032 07/11/2022, 09/21/2007 RSV Immunization Adult Patients (1 - 1-dose 75+ series) 2060 Depression Screening Completed 09/28/2025 HIB Vaccines Aged Out No longer eligi ble based on patient's age to complete this topic IPV Vaccines Aged Out No longer eligi ble based on patient's age to complete this topic MMR Vaccines Aged Out No longer eligi ble based on patient's age to complete this topic Meningococcal ACWY Vaccine Aged Out N o longer eligible based on patient's age to complete this topic Meningococcal B Vaccine Aged Out No l onger eligible based on patient's age to complete this topic RSV Immunization Patients Under 20 months Aged Out No longer eligible b ased on patient's age to complete this topic Varicella Vaccines Aged Out No longer eligible based on patient's age to complete this topic Insurance [facility] MEDIC[facility] Member Subscriber Plan / Payer (Ef fective 2019-Present) Name:TERESSA MARS Relation to Subscriber:Self Name:Teressa Mars Payer ID:[id number] Group ID:[id number] Type:Not on file Address: [address] [facility] [place] [id number] Care Teams Licensed Psychologist Relationship Specialty Start Date End Date Noe Bhatt MD [address] [place] [address] PCP - General Internal Medicine 06/21/25
[2025-10-12 19:15] LABS: Appearance Urine Clear; Glucose Urine UA Negative (Negative); PH 7.0 (5.0-9.0); Specific Gravity - Urine 1.015 (1.005-1.025); UMIC TRIGGER UACC YES
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
[2025-10-13 06:33] VITALS: BP 114/62; PULSE 85; RESP 17; TEMP 36.7; O2SAT 98
--- NOTE | 2025-10-13 07:51 | PC.NURSE ---
Assumed care, report received. Pt ate breakfast and went back to sleep. safety maintained.
--- NOTE | 2025-10-13 09:16 | ECG_ITS ---
Test Reason : check for QTC Blood Pressure : */* mmHG Vent. Rate : 72 BPM Atrial Rate : 72 BPM P-R Int : 136 ms QRS Dur : 82 ms QT Int : 392 ms P-R-T Axes : 42 66 68 degrees QTcB Int : 429 ms Normal sinus rhythm Normal ECG When compared with ECG of 16-Aug-2025 13:05, No significant change was found Referred By: Jon Decker Electronically Signed By: CHUCKIE FAUSTIN MD
[2025-10-13 10:31] LABS: COVID-19 Test Negative (Negative); IDNOW Serial# 55D5AD1C; IDNOW Serial# 58CA691E; Influenza B2 Negative (Negative)
--- NOTE | 2025-10-13 13:48 | PHA.MEDREC ---
Addendum entered by Jan Cevallos RPh 10/13/25 13:56: MED REC REVIEWED BY [facility] Original Note: Pharmacy Consult ? Medication Reconciliation Pharmacy has reviewed the medication reconciliation done by nursing. Utilized med list from [facility] to confirm med list. Nurse states she called [facility] [phone] to gel last dose on Inveva and Haloperidol.
[2025-10-13 14:08] VITALS: BP 123/72; PULSE 85; RESP 18; TEMP 36.7; O2SAT 99
[2025-10-13 16:42] VITALS: BMI 37.7
[2025-10-13 16:47] VITALS: BP 127/85; PULSE 90; RESP 16; TEMP 36.8; O2SAT 96
--- NOTE | 2025-10-13 17:58 | PC.ADMIT ---
Pt arrived on the unit at 1638 from [facility] and is here on a CV. She currently resides in a custodial and was BIBA after calling emergency services herself d/t AH and SI without a plan. Pt denies AH are command in nature. They count and talk and I try to ignore them . Pt states that she feels like her meds aren't working . Pt prescribed Haldol Decanate and her next dose is due 09/14/25. She is also prescribed Invega Sustaina and her last dose was given 09/23/25. Pt states that she moved into the [facility] about four months ago, and was previously living independently. She feels that this is a potential precipitating event. She also states that she will use heroin for her back pain, occasionally (last use months ago) as the Subutext does not cover her pain enough . She is interested in Methadone to get better pain management and prevent her from using heroin. In addition, she states that she has been using crack/cocaine to stop the AH . Toxicology screening positive for cocaine. Pt accepted referral for substance use. She is also requesting Tramadol prn for chronic pain in back. Pt accepted NRT for 1PPD smoking. Pt states that she is concerned about her custodial finding out about her drug use and being kicked out. Skin check unremarkable. Flu shot accepted. VSS. Pt on 15 minute safety checks. During admission process, pt was calm, pleasant and cooperative. She was restless and rocking on her feet in exam room. Unkempt appearance.
[2025-10-13] MEDS: Flu Vacc TS2025-26(6mo up)/PF 0.5 ML SYRINGE IM (18:25)
[2025-10-13] MEDS: Nicotine 21 MG PATCH.TD24 TRANSDERMA (18:29)
[2025-10-14 08:00] VITALS: BP 133/87; PULSE 84; TEMP 36.2; O2SAT 96
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
[2025-10-14 20:00] VITALS: BP 121/63; PULSE 88; RESP 16; TEMP 35.4; O2SAT 97
[2025-10-15] MEDS: Nicotine 21 MG PATCH.TD24 TRANSDERMA (11:08)
--- NOTE | 2025-10-15 23:24 | P.PNPSI_ITS ---
Subjective Subjective Date of Service: 10/15/25 Reason For Visit: SI Interim History: Met with patient; discussed with team Patient remains pretty much the same, saying she is okay that she still has auditory hallucinations. Denies SI. Explain to inpatient Understands that she can not switch medication given [place] order Mental Status Exam Mental Status Exam Narrative: Pt is alert and oriented; behavior is isolative to self, somewhat guarded but cooperative, calm; patient is not in distress; dressed in hospital attire, unkempt; mood is described as ok and affect congruent; eye contact appropriate; Speech is normal rate, volume and prosody and not pressured; psychomotor retardation present; thought process goal directed; Thought content is on paranoid ideations; ongoing, chronic, passive SI; no HI. AH positive and patient internally preoccupied and responding to internal stimuli. Patients insight and judgment impaired but probably close to baseline Diagnostics Vital Signs (24Hr): BMI result Body Mass Index 37.7 Labs 10/12/25 16:36 10/12/25 16:36 Medications Medications Current Medications Acetaminophen (Acetaminophen 325 Mg Tablet) 650 mg PO Q6H PRN PRN Reason: Headache/Pain, Scale 1-10 Al Hydroxide/Mg Hydroxide (Magnesium Hydrox/Alum Hydrox 30 Ml Oral.Susp) 30 ml PO Q6H PRN PRN Reason: Heartburn/Nausea Buprenorphine HCl (Buprenorphine Hcl 2 Mg Tab.Subl) 2 mg SUBLINGUAL DAILY SYDNIE Last Admin: 10/15/25 09:39 Dose: 2 mg Chlorpromazine HCl (Chlorpromazine Hcl 100 Mg Tablet) 100 mg PO Q6H PRN PRN Reason: Severe anxiety Last Admin: 10/13/25 18:29 Dose: 100 mg Haloperidol Decanoate (Haloperidol Decanoate 50 Mg/Ml Vial) 100 mg IM Q30D SYDNIE Hydroxyzine HCl (Hydroxyzine Hcl 25 Mg Tablet) 25 mg PO Q6H PRN PRN Reason: mild anxiety Lactulose (Lactulose 20 Gm/30 Ml Solution) 10 gm PO DAILY PRN PRN Reason: Constipation Magnesium Hydroxide (Milk Of Magnesia 30 Ml Oral.Susp) 30 ml PO DAILY PRN PRN Reason: Constipation Nicotine (Nicotine 21 Mg Patch.Td24) 21 mg TRANSDERMA DAILY PRN PRN Reason: smoking cessation Last Admin: 10/15/25 11:08 Dose: 21 mg Nicotine Polacrilex (Nicotine Polacrilex 2 Mg Gum) 2 mg BUCCAL Q2H PRN PRN Reason: Nicotine Cravings Last Admin: 10/13/25 18:30 Dose: 2 mg Nicotine Polacrilex (Nicotine Polacrilex 2 Mg Gum) 4 mg BUCCAL Q2H PRN PRN Reason: Nicotine Cravings Olanzapine (Olanzapine 5 Mg Tablet) 5 mg PO TID PRN PRN Reason: agitation Paliperidone Palmitate (Paliperidone Palmitate 234 Mg/1.5 Ml Syringe) 234 mg IM Q30D SYDNIE Tramadol HCl (Tramadol Hcl 50 Mg Tablet) 50 mg PO Q6H PRN PRN Reason: Severe back pain as home med Last Admin: 10/14/25 11:39 Dose: 50 mg Trazodone HCl (Trazodone Hcl 50 Mg Tablet) 50 mg PO BEDTIME MRX1 PRN PRN Reason: Insomnia Allergies Allergies Allergy/AdvReac Type Severity Reaction Status Date / Time lamotrigine (From Lamictal) Allergy Shortness Verified 10/12/25 15:51 of Breath Assessment & Plan Assessment & Plan (1) Schizoaffective disorder: Status: Acute Code(s): F25.9 - Schizoaffective disorder, unspecified (2) Opioid use disorder: Status: Acute Code(s): F11.90 - Opioid use, unspecified, uncomplicated (3) Cocaine use disorder: Status: Acute Code(s): F14.10 - Cocaine abuse, uncomplicated Plan Patient 40-year-old female on a community [place] with history of schizoaffective disorder, cocaine opiate abuse come who presents from longterm for worsening AH and SI. Patient reports taking medications faithfully. Reports increasing using cocaine deal with ongoing AH. Patient responding to internal stimuli during conversation and refers to Aric whom she can hear and his voices bothering her. Patient ask if screenplay writer was aware and is skeptical that screenplay writer is a doctor. Talks about kids being kidnapped years ago and not sure if there her kids are not, saying Aric refers to them. Reports SI but says it is the same chronic SI she has had since she was a teenager. Formulation/clinical reasoning: Continue current medication regimen. Patient is on a [place] order and has limited medication options. Clozaril was not want of them. Not that far from baseline as patient has AH and paranoid ideations the chronic. Will get collateral Hospital course: 10/15 remains isolated, a little bit guarded; says AH continues. No SI Plan: CV Q 15 minute checks continue home medication and gather collateral Pt prescribed Haldol Decanate and her last dose on 09/14/25. She is also prescribed Invega Sustaina and her last dose was given 09/23/25. Patient educated on: diagnosis and medication risk/benefits Informed Consent: understands, does not understand and further education needed Reason for continued inpatient stay Substantial Risk for: rapid decompensation Time Spent With Patient Time: Total time managing care of this patient today ____ minutes.
[2025-10-16 08:00] VITALS: BP 112/53; PULSE 79; O2SAT 97
--- NOTE | 2025-10-16 09:19 | MHC.RECOVRN ---
Consult received by Addiction Medicine for [facility]AD[facility].? On approach pt was in bed, eyes closed. No acute distress,restlessness, or diaphoresis noted. Pt agreed to meet with this investment underwriter, however she was guarded and withdrawn during interview.? Pt stated she is currently prescribed Subutex to manage back pain. Information was verified via [facility]. Reports using crack cocaine and heroin to manage ongoing pain as Subutex is not effective. Expressed desire to transition to methadone ?so it will work better?.?Pt instructed that decision should be discussed with her current prescriber and other pain management techniques and options should be explored.? Pt report of use is inconsistent as she states she last used IV heroin ?months ago? and shortly after claimed to use 1 bundle a day for the last 10 years. She denies ever experiencing withdrawal symptoms, cravings,? or seeking treatment for [facility].? Pt also reports ?I?m just starting to use crack too?.? Discussed and provided written education and resources for harm reduction techniques including utilizing [employer] for sterile supplies and drug testing, harm reduction techniques such as not sharing needles, utilizing a test shot when using a supply from a new supplier, education about the current drug supply, cutting agents used, as well as carrying Narcan and utilizing [employer] to decrease chances of overdose. She reports she will consider a recovery advocate but declined need for other interventions or out pt appt for [facility] ACS team available as needed for ongoing support.?
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
--- NOTE | 2025-10-16 14:50 | MHC.RECOVRN ---
TW checked in on pt to offer support. ON approach she was laying in bed and difficult to arouse but did agree to talk with TW once awoken. She reports ongoing back pain, unrelieved with scheduled medications. She verbalized the desire to start methadone for pain relief and was reminded of conversation that occurred between her and TW yesterday. Pt verbalized her understanding and states she will talk with her PCP upon discharge about other pain control options. Pt denies any symptoms of withdrawal and only refers to my back hurting forever Denies other concerns, questions, or complaints at this time.
--- NOTE | 2025-10-17 14:33 | PC.NURSE ---
Pt signed a 3 day notice on 10/17 to be up on 10/20.
[2025-10-17] MEDS: Milk of Magnesia 30 ML ORAL.SUSP PO (18:53)
[2025-10-17 20:00] VITALS: BP 113/59; PULSE 74; RESP 16; TEMP 36.4; O2SAT 96
--- NOTE | 2025-10-17 20:57 | P.PNPSI_ITS ---
Subjective Subjective Date of Service: 10/17/25 Reason For Visit: SI Subjective Notes: Conditional Voluntary Healthcare Proxy: No Guardianship: No Medical Problems Affecting Mental Status: No Interim History: Patient seen in her room.? They were calm, cooperative though apathetic, limited communication. Intermittent SI, apathy, depression. Endorsed AH as well. Reported sleeping well. Otherwise they denied concerns about their care at this time. haldol decanoate injection today Medication Compliance: Yes Side effects from medications: No Attending Groups: No Review of Systems Acute medical concerns: No Medical Review of Systems: unchanged Review of Systems Review of Systems Yes all other systems are reviewed and are negative Mental Status Exam Mental Status Exam Narrative: Patient Appearance: disheveled Patient Behavior: apathy Level of Consciousness: Awake, minimally alert Patient Orientation: Person, Place and Time, situational context Memory: grossly intact to recent events Psychomotor: slowing Speech: normal rate, tone, volume Mood: ?I don't know? Affect: constricted Thought Process: Goal Oriented Thought Content: intermittent SI, denies plan or intent, denies HI; focused on treatment questions Hallucinations: intermittent AH Delusions: None evinced Insight: mild impairment Judgment: mild impairment Impulsivity: low Diagnostics Vital Signs (24Hr): Vital Signs - 24 hr 10/17/25 20:00 Temperature 97.5 F Pulse Rate 74 Respiratory Rate 16 Blood Pressure 113/59 L Pulse Oximetry 96 Oxygen Delivery Method Room Air BMI result Body Mass Index 37.7 Labs 10/12/25 16:36 10/12/25 16:36 Medications Medications Current Medications Acetaminophen (Acetaminophen 325 Mg Tablet) 650 mg PO Q6H PRN PRN Reason: Headache/Pain, Scale 1-10 Al Hydroxide/Mg Hydroxide (Magnesium Hydrox/Alum Hydrox 30 Ml Oral.Susp) 30 ml PO Q6H PRN PRN Reason: Heartburn/Nausea Buprenorphine HCl (Buprenorphine Hcl 2 Mg Tab.Subl) 2 mg SUBLINGUAL DAILY SYDNIE Last Admin: 10/17/25 08:26 Dose: 2 mg Chlorpromazine HCl (Chlorpromazine Hcl 100 Mg Tablet) 100 mg PO Q6H PRN PRN Reason: Severe anxiety Last Admin: 10/13/25 18:29 Dose: 100 mg Haloperidol Decanoate (Haloperidol Decanoate 50 Mg/Ml Vial) 100 mg IM Q30D SYDNIE Last Admin: 10/17/25 10:17 Dose: 100 mg Hydroxyzine HCl (Hydroxyzine Hcl 25 Mg Tablet) 25 mg PO Q6H PRN PRN Reason: mild anxiety Lactulose (Lactulose 20 Gm/30 Ml Solution) 10 gm PO DAILY PRN PRN Reason: Constipation Magnesium Hydroxide (Milk Of Magnesia 30 Ml Oral.Susp) 30 ml PO DAILY PRN PRN Reason: Constipation Last Admin: 10/17/25 18:53 Dose: 30 ml Nicotine (Nicotine 21 Mg Patch.Td24) 21 mg TRANSDERMA DAILY PRN PRN Reason: smoking cessation Last Admin: 10/15/25 11:08 Dose: 21 mg Nicotine Polacrilex (Nicotine Polacrilex 2 Mg Gum) 2 mg BUCCAL Q2H PRN PRN Reason: Nicotine Cravings Last Admin: 10/13/25 18:30 Dose: 2 mg Nicotine Polacrilex (Nicotine Polacrilex 2 Mg Gum) 4 mg BUCCAL Q2H PRN PRN Reason: Nicotine Cravings Olanzapine (Olanzapine 5 Mg Tablet) 5 mg PO TID PRN PRN Reason: agitation Paliperidone Palmitate (Paliperidone Palmitate 234 Mg/1.5 Ml Syringe) 234 mg IM Q30D SYDNIE Tramadol HCl (Tramadol Hcl 50 Mg Tablet) 50 mg PO Q6H PRN PRN Reason: Severe back pain as home med Last Admin: 10/17/25 20:13 Dose: 50 mg Trazodone HCl (Trazodone Hcl 50 Mg Tablet) 50 mg PO BEDTIME MRX1 PRN PRN Reason: Insomnia Allergies Allergies Allergy/AdvReac Type Severity Reaction Status Date / Time lamotrigine (From Lamictal) Allergy Shortness Verified 10/12/25 15:51 of Breath Assessment & Plan Assessment & Plan (1) Schizoaffective disorder: Status: Acute Code(s): F25.9 - Schizoaffective disorder, unspecified (2) Opioid use disorder: Status: Acute Code(s): F11.90 - Opioid use, unspecified, uncomplicated (3) Cocaine use disorder: Status: Acute Code(s): F14.10 - Cocaine abuse, uncomplicated Plan Patient 40-year-old female on a [employer] [place] with history of schizoaffective disorder, cocaine opiate abuse come who presents from long term for worsening AH and SI. Patient reports taking medications faithfully. Reports increasing using cocaine deal with ongoing AH. Patient responding to internal stimuli during conversation and refers to Aric whom she can hear and his voices bothering her. Patient ask if fiction and nonfiction prose writer was aware and is skeptical that fiction and nonfiction prose writer is a doctor. Talks about kids being kidnapped years ago and not sure if there her kids are not, saying Aric refers to them. Reports SI but says it is the same chronic SI she has had since she was a teenager. Formulation/clinical reasoning: Continue current medication regimen. Patient is on a [place] order and has limited medication options. Clozaril was not want of them. Not that far from baseline as patient has AH and paranoid ideations the chronic. Will get collateral Hospital course: 10/15 remains isolated, a little bit guarded; says AH continues. No SI Plan: CV Q 15 minute checks continue home medication and gather collateral Pt prescribed Haldol Decanate and her last dose on 09/14/25. She is also prescribed Invega Sustaina and her last dose was given 09/23/25. 10/16: no changes today 10/17: Haldol decanoate as planned by primary team Patient educated on: diagnosis and medication risk/benefits Informed Consent: understands Reason for continued inpatient stay Substantial Risk for: harm to self and inability to function Time Spent With Patient Time: Total time managing care of this patient today _15___ minutes.
--- NOTE | 2025-10-18 09:47 | HO.PSYCHPN ---
Subjective Subjective Date of Service: 10/18/25 Reason For Visit: SI Interim History: met with patient; discussed with team; reviewed chart Who reports she has overall feeling better and back to her regular self; still has AH which she says is bothersome but also feels that is a little less so that previously. She denies any SI and says she is ready to go back to her residential Mental Status Exam Mental Status Exam Narrative: Patient Appearance: disheveled Patient Behavior: Isolative, staying in bed by herself Level of Consciousness: Awake, alert Patient Orientation: Person, Place and Time, situational context Psychomotor retardation: Remains present Speech: normal rate, tone, volume Mood: ?ok Affect: constricted/blunted Thought Process: Goal Oriented Thought Content: Denies any SI; no HI; no expressions of paranoid ideations Hallucinations: intermittent AH Delusions: None evinced Insight/judgment: mild impairment but at baseline and adequate Diagnostics Vital Signs (24Hr): Vital Signs - 24 hr 10/17/25 20:00 Temperature 97.5 F Pulse Rate 74 Respiratory Rate 16 Blood Pressure 113/59 L Pulse Oximetry 96 Oxygen Delivery Method Room Air BMI result Body Mass Index 37.7 Labs 10/12/25 16:36 10/12/25 16:36 Medications Medications Current Medications Acetaminophen (Acetaminophen 325 Mg Tablet) 650 mg PO Q6H PRN PRN Reason: Headache/Pain, Scale 1-10 Al Hydroxide/Mg Hydroxide (Magnesium Hydrox/Alum Hydrox 30 Ml Oral.Susp) 30 ml PO Q6H PRN PRN Reason: Heartburn/Nausea Buprenorphine HCl (Buprenorphine Hcl 2 Mg Tab.Subl) 2 mg SUBLINGUAL DAILY REPLACED BY [facility] Last Admin: 10/18/25 08:32 Dose: 2 mg Chlorpromazine HCl (Chlorpromazine Hcl 100 Mg Tablet) 100 mg PO Q6H PRN PRN Reason: Severe anxiety Last Admin: 10/13/25 18:29 Dose: 100 mg Haloperidol Decanoate (Haloperidol Decanoate 50 Mg/Ml Vial) 100 mg IM Q30D REPLACED BY [facility] Last Admin: 10/17/25 10:17 Dose: 100 mg Hydroxyzine HCl (Hydroxyzine Hcl 25 Mg Tablet) 25 mg PO Q6H PRN PRN Reason: mild anxiety Lactulose (Lactulose 20 Gm/30 Ml Solution) 10 gm PO DAILY PRN PRN Reason: Constipation Magnesium Hydroxide (Milk Of Magnesia 30 Ml Oral.Susp) 30 ml PO DAILY PRN PRN Reason: Constipation Last Admin: 10/17/25 18:53 Dose: 30 ml Nicotine (Nicotine 21 Mg Patch.Td24) 21 mg TRANSDERMA DAILY PRN PRN Reason: smoking cessation Last Admin: 10/15/25 11:08 Dose: 21 mg Nicotine Polacrilex (Nicotine Polacrilex 2 Mg Gum) 2 mg BUCCAL Q2H PRN PRN Reason: Nicotine Cravings Last Admin: 10/13/25 18:30 Dose: 2 mg Nicotine Polacrilex (Nicotine Polacrilex 2 Mg Gum) 4 mg BUCCAL Q2H PRN PRN Reason: Nicotine Cravings Olanzapine (Olanzapine 5 Mg Tablet) 5 mg PO TID PRN PRN Reason: agitation Paliperidone Palmitate (Paliperidone Palmitate 234 Mg/1.5 Ml Syringe) 234 mg IM Q30D SYDNIE Tramadol HCl (Tramadol Hcl 50 Mg Tablet) 50 mg PO Q6H PRN PRN Reason: Severe back pain as home med Last Admin: 10/17/25 20:13 Dose: 50 mg Trazodone HCl (Trazodone Hcl 50 Mg Tablet) 50 mg PO BEDTIME MRX1 PRN PRN Reason: Insomnia Allergies Allergies Allergy/AdvReac Type Severity Reaction Status Date / Time lamotrigine (From Lamictal) Allergy Shortness Verified 10/12/25 15:51 of Breath Assessment & Plan Assessment & Plan (1) Schizoaffective disorder: Status: Acute Code(s): F25.9 - Schizoaffective disorder, unspecified (2) Opioid use disorder: Status: Acute Code(s): F11.90 - Opioid use, unspecified, uncomplicated (3) Cocaine use disorder: Status: Acute Code(s): F14.10 - Cocaine abuse, uncomplicated Plan Patient 40-year-old female on a [employer] [place] with history of schizoaffective disorder, cocaine opiate abuse come who presents from residential for worsening AH and SI. Patient reports taking medications faithfully. Reports increasing using cocaine deal with ongoing AH. Patient responding to internal stimuli during conversation and refers to Aric whom she can hear and his voices bothering her. Patient ask if senior grant writer was aware and is skeptical that senior grant writer is a doctor. Talks about kids being kidnapped years ago and not sure if there her kids are not, saying Aric refers to them. Reports SI but says it is the same chronic SI she has had since she was a teenager. Formulation/clinical reasoning: Continue current medication regimen. Patient is on a [place] order and has limited medication options. Clozaril was not want of them. Not that far from baseline as patient has AH and paranoid ideations the chronic. Will get collateral Hospital course: 10/15 remains isolated, a little bit guarded; says AH continues. No SI 10/16: no changes today 10/17: Haldol decanoate as planned by primary team 10/18 patient seems to be at baseline; AH remain but a little less bothersome. No SI. Patient placed a 3 day notice wanting to return to residential Plan: 3 day Q 15 minute checks continue home medication and gather collateral Pt prescribed Haldol Decanate and her last dose on 09/14/25. She is also prescribed Invega Sustaina and her last dose was given 09/23/25. Patient educated on: diagnosis and medication risk/benefits Informed Consent: understands Reason for continued inpatient stay Substantial Risk for: stable for discharge and rapid decompensation Time Spent With Patient Time: Total time managing care of this patient today ____ minutes.
[2025-10-18 19:53] VITALS: BP 99/52; PULSE 67; RESP 16; TEMP 35.4; O2SAT 98
--- NOTE | 2025-10-19 09:31 | P.PNPSI_ITS ---
Subjective Subjective Date of Service: 10/19/25 Reason For Visit: SI Interim History: met with patient; discussed with team Patient says she is doing fine; no changes. Still says AH but tolerated. Wants to go home and looking forward to discharge tomorrow Mental Status Exam Mental Status Exam Narrative: Patient Appearance: disheveled Patient Behavior: Isolative, staying in bed by herself Level of Consciousness: Awake, alert Patient Orientation: Person, Place and Time, situational context Psychomotor retardation: Remains present Speech: normal rate, tone, volume Mood: ?ok Affect: constricted/blunted Thought Process: Goal Oriented Thought Content: Denies any SI; no HI; no expressions of paranoid ideations Hallucinations: intermittent AH Delusions: None evinced Insight/judgment: mild impairment but at baseline and adequate Diagnostics Vital Signs (24Hr): Vital Signs - 24 hr 10/18/25 19:53 Temperature 95.7 F L Pulse Rate 67 Respiratory Rate 16 Blood Pressure 99/52 L Pulse Oximetry 98 Oxygen Delivery Method Room Air BMI result Body Mass Index 37.7 Labs 10/12/25 16:36 10/12/25 16:36 Medications Medications Current Medications Acetaminophen (Acetaminophen 325 Mg Tablet) 650 mg PO Q6H PRN PRN Reason: Headache/Pain, Scale 1-10 Last Admin: 10/18/25 18:37 Dose: 650 mg Al Hydroxide/Mg Hydroxide (Magnesium Hydrox/Alum Hydrox 30 Ml Oral.Susp) 30 ml PO Q6H PRN PRN Reason: Heartburn/Nausea Buprenorphine HCl (Buprenorphine Hcl 2 Mg Tab.Subl) 2 mg SUBLINGUAL DAILY [facility] Last Admin: 10/19/25 08:44 Dose: 2 mg Chlorpromazine HCl (Chlorpromazine Hcl 100 Mg Tablet) 100 mg PO Q6H PRN PRN Reason: Severe anxiety Last Admin: 10/13/25 18:29 Dose: 100 mg Haloperidol Decanoate (Haloperidol Decanoate 50 Mg/Ml Vial) 100 mg IM Q30D [facility] Last Admin: 10/17/25 10:17 Dose: 100 mg Hydroxyzine HCl (Hydroxyzine Hcl 25 Mg Tablet) 25 mg PO Q6H PRN PRN Reason: mild anxiety Lactulose (Lactulose 20 Gm/30 Ml Solution) 10 gm PO DAILY PRN PRN Reason: Constipation Magnesium Hydroxide (Milk Of Magnesia 30 Ml Oral.Susp) 30 ml PO DAILY PRN PRN Reason: Constipation Last Admin: 10/17/25 18:53 Dose: 30 ml Nicotine (Nicotine 21 Mg Patch.Td24) 21 mg TRANSDERMA DAILY PRN PRN Reason: smoking cessation Last Admin: 10/15/25 11:08 Dose: 21 mg Nicotine Polacrilex (Nicotine Polacrilex 2 Mg Gum) 2 mg BUCCAL Q2H PRN PRN Reason: Nicotine Cravings Last Admin: 10/13/25 18:30 Dose: 2 mg Nicotine Polacrilex (Nicotine Polacrilex 2 Mg Gum) 4 mg BUCCAL Q2H PRN PRN Reason: Nicotine Cravings Olanzapine (Olanzapine 5 Mg Tablet) 5 mg PO TID PRN PRN Reason: agitation Paliperidone Palmitate (Paliperidone Palmitate 234 Mg/1.5 Ml Syringe) 234 mg IM Q30D SYDNIE Tramadol HCl (Tramadol Hcl 50 Mg Tablet) 50 mg PO Q6H PRN PRN Reason: Severe back pain as home med Last Admin: 10/19/25 08:44 Dose: 50 mg Trazodone HCl (Trazodone Hcl 50 Mg Tablet) 50 mg PO BEDTIME MRX1 PRN PRN Reason: Insomnia Allergies Allergies Allergy/AdvReac Type Severity Reaction Status Date / Time lamotrigine (From Lamictal) Allergy Shortness Verified 10/12/25 15:51 of Breath Assessment & Plan Assessment & Plan (1) Schizoaffective disorder: Status: Acute Code(s): F25.9 - Schizoaffective disorder, unspecified (2) Opioid use disorder: Status: Acute Code(s): F11.90 - Opioid use, unspecified, uncomplicated (3) Cocaine use disorder: Status: Acute Code(s): F14.10 - Cocaine abuse, uncomplicated Plan Patient 40-year-old female on a community [place] with history of schizoaffective disorder, cocaine opiate abuse come who presents from snf for worsening AH and SI. Patient reports taking medications faithfully. Reports increasing using cocaine deal with ongoing AH. Patient responding to internal stimuli during conversation and refers to Aric whom she can hear and his voices bothering her. Patient ask if entry writer was aware and is skeptical that entry writer is a doctor. Talks about kids being kidnapped years ago and not sure if there her kids are not, saying Aric refers to them. Reports SI but says it is the same chronic SI she has had since she was a teenager. Formulation/clinical reasoning: Continue current medication regimen. Patient is on a [place] order and has limited medication options. Clozaril was not want of them. Not that far from baseline as patient has AH and paranoid ideations the chronic. Will get collateral Hospital course: 10/15 remains isolated, a little bit guarded; says AH continues. No SI 10/16: no changes today 10/17: Haldol decanoate as planned by primary team 10/18 patient seems to be at baseline; AH remain but a little less bothersome. No SI. Patient placed a 3 day notice wanting to return to snf Patient remains in good behavioral and impulse control, not in imminent risk for harm to self or others and appropriate turn treatment in the community for treatment Plan: 3 day Q 15 minute checks continue home medication and gather collateral Pt prescribed Haldol Decanate and her last dose on 09/14/25. She is also prescribed Invega Sustaina and her last dose was given 09/23/25. Patient educated on: diagnosis and medication risk/benefits Informed Consent: understands and further education needed Reason for continued inpatient stay Substantial Risk for: stable for discharge Time Spent With Patient Time: Total time managing care of this patient today ____ minutes.
[2025-10-20 07:55] VITALS: BP 107/60; PULSE 72; TEMP 35.6; O2SAT 96
--- NOTE | 2025-10-20 10:19 | P.DS_ITS ---
DS: Providers Provider Date of Service: 10/20/25 Date of admission: 10/13/25 15:09 Date of discharge: 10/20/25 Primary care physician: [facility] Attending physician on admission: Fabian Mendoza Consults: 10/13/25 17:07 Addiction Medicine Provider Routine Consulting Provider: Addiction Covering Reason for consultation: KADEN Attending physician on discharge: Fabian Mendoza DS: Diagnosis Discharge Diagnosis (1) Schizoaffective disorder: Status: Acute (2) Opioid use disorder: Status: Acute (3) Cocaine use disorder: Status: Acute DS: Medications Discharge Medications Home Medications: Home Medications ?Medication ?Instructions ?Recorded ?Confirmed acetaminophen 650 mg PO Q8-10H PRN Pain, M ild 08/15/25 10/12/25 tizanidine 2 mg tablet 2 mg PO TID PRN Muscle Spasm 10/13/25 10/13/25 Previous Rx's ?Medication ?Instructions ?Recorded buprenorphine HCl 2 mg sublingual 2 mg sublingual GARY Y MAT #30 tabs 08/27/25 tablet chlorpromazine 100 mg tablet 100 mg PO Q6H PRN Severe anxiety 08/27/25 #60 tabs haloperidol decanoate 50 mg/mL 100 mg (2 mL) IM Q30D P sychosis 08/27/25 intramuscular solution #2 mL hydroxyzine HCl 25 mg tablet 25 mg PO Q6H PRN mild anx iety #30 08/27/25 tabs lactulose 10 gram/15 mL oral 10 g (15 mL) PO DAILY PRN 08/27/25 solution Constipation #1,200 mL nicotine (polacrilex) 2 mg gum 2 mg buccal Q2H PRN Dev otine 08/27/25 Cravings #100 ea nicotine 21 mg/24 hr daily 21 mg transdermal DAILY PRN 08/27/25 transdermal patch nicotine craving #28 ea paliperidone palmitate 234 mg/1.5 234 mg (1.5 mL) IM Q 30D psychosis 08/27/25 mL intramuscular syringe (Invega #1.5 mL Sustenna) tramadol 50 mg tablet 50 mg PO Q6H PRN Severe back pain 08/27/25 as home med #30 tabs Mental Status Exam Mental Status Exam Narrative: Patient Appearance: unkempt but improved Patient Behavior: calm Level of Consciousness: Awake, alert Patient Orientation: Person, Place and Time, situational context Psychomotor retardation: Remains Speech: normal rate, tone, volume Mood: ?ok Affect: constricted/blunted Thought Process: Goal Oriented Thought Content: Denies any SI; no HI; no expressions of paranoid ideations Hallucinations: intermittent AH Delusions: None evinced Insight/judgment: mild impairment but at baseline and adequate Data Data Completed and Pending Completed studies during hospitalization [Text1]: 10/13/25 10:05 COVID-19 (MICHAEL) Negative COVID-19 Clin Com See Note Influenza Type A (KISHORE) Negative Influenza Type B (KISHORE) Negative Influenza A & B Note See Note DS: Summary Hospital Course Hospital Course: Patient 40-year-old female on a community [place] with history of schizoaffective disorder, cocaine opiate abuse come who presents from intermediate for worsening AH and SI. Patient reports taking medications faithfully. Reports increasing using cocaine deal with ongoing AH. Patient responding to internal stimuli during conversation and refers to Aric whom she can hear and his voices bothering her. Patient ask if underwriter mortgage loan was aware and is skeptical that underwriter mortgage loan is a doctor. Talks about kids being kidnapped years ago and not sure if there her kids are not, saying Aric refers to them. Reports SI but says it is the same chronic SI she has had since she was a teenager. Formulation/clinical reasoning: Continue current medication regimen. Patient is on a [place] order and has limited medication options. Clozaril was not want of them. Not that far from baseline as patient has AH and paranoid ideations the chronic. Will get collateral Hospital course: On admission, depressed with AH and paranoid delusions. Consensus is substance abuse exacerbated symptoms. Pt continued on home meds and on changes made. She remained isolated to her room. She reported that AH continued but seemed less bothersome and she was no longer expressing paranoid ideations. Her mood improved and she continued to deny SI. Pt returned to baseline and signed a 3 day notice. Patient remained in good behavioral and impulse control. She was not in imminent risk for harm to self or others and was appropriate to return to her intermediate for treatment. Status at Discharge Functional status at discharge: independent ambulation Overall status at discharge: patient is back to baseline Time Spent with Patient Time attestation: Total time managing care of this patient today ____ minutes. Time spent: Less than 30 minutes Discharge Plan Discharge Anticipated Discharge Date/Time: 10/20/25 11:30 Patient Disposition: Home, Self-Care Discharge Diagnosis: Schizoaffective disorder Referrals: [facility] [Other] - 1 Week Referral Note: Yissel has been updated as to your discharge plan [facility] [Other] - 1 Week Referral Note: Shanti has been updated as to your discharge plan [employer] [Other] - 11/15/25 12:00 pm Referral Note: Follow-up therapy appointment Yas Parra [Other] - 1 Week Referral Note: Please connect with the medical program specialist and/or rn mds coordinator as a referral for dual diagnostic services was placed on your behalf. [facility] [Other] - 11/12/25 9:00 am Referral Note: [facility] Week Discharge Medications: Continued acetaminophen 650 mg PO Q8-10H PRN (Reason: Pain, Mild) nicotine 21 mg/24 hr Patch 24 Hour 21 mg transdermal DAILY PRN (Reason: nicotine craving) Qty: 28 0RF nicotine (polacrilex) 2 mg Gum 2 mg buccal Q2H PRN (Reason: Nicotine Cravings) Qty: 100 0RF buprenorphine HCl 2 mg Tablet, Sublingual 2 mg sublingual DAILY Qty: 30 0RF chlorpromazine 100 mg Tablet 100 mg PO Q6H PRN (Reason: Severe anxiety ) Qty: 60 0RF haloperidol decanoate 50 mg/mL Solution 100 mg IM Q30D Qty: 2 0RF Rx Instructions: Last dose was on 09/17 hydroxyzine HCl 25 mg Tablet 25 mg PO Q6H PRN (Reason: mild anxiety) Qty: 30 0RF Invega Sustenna 234 mg/1.5 mL Syringe 234 mg IM Q30D Qty: 1.5 0RF Rx Instructions: Last dose given on 09/23/25 tramadol 50 mg Tablet 50 mg PO Q6H PRN (Reason: Severe back pain as home med) Qty: 30 0RF lactulose 10 gram/15 mL Solution 10 g PO DAILY PRN (Reason: Constipation) Qty: 1200 0RF tizanidine 2 mg tablet 2 mg PO TID PRN (Reason: Muscle Spasm) Discharge Orders: Discharge Order (Routine); Ordered 10/20/25 Ordered By: Fabian Kelly Diet: Regular diet Activity on Discharge: As tolerated Stand Alone Forms: Patient Portal Discharge page, Community Support Print Language: Slovak Care Plan Goals: Maintain mood and safe behaviors Take medications as prescribed Continue to pursue sobriety Practice coping skills Continue with outpatient providers and reach out to them as needed Health Concerns: Mood stability and behaviors Sobriety Plan of Treatment: Follow up with your PCP, psychiatric provider and other outpatient providers regarding above concerns Take medications as prescribed Assessment: Risk assessment at time of discharge:? Patient was interviewed prior to discharge and found to be fully oriented and without any SI or HI. Patient has improved insight and judgment and wants to continue treatment. Patient is not in imminent risk of harm to self or others and has a safety plan that includes presenting to the closest ER or calling 911 if feeling unsafe.? Patient has been observed closely by nursing and unit staff throughout admission; patient has not engaged in any behaviors that suggest dangerousness to self or others and has demonstrated appropriate behaviors and impulse control
== END 2025-10-20 11:59 | disposition home or self-care (01) | DRG 885 ==
LOC: HO.ED 22:28 → HO.PM5 10-13 15:10
PROVIDERS: Emergency Medicine; Physician Assistant Medical; Admitting Provider Psychiatry & Neurology Psychiatry; Emergency Provider Emergency Medicine; Visit Provider Psychiatry & Neurology Psychiatry
DX: F25.9 Schizoaffective disorder, unspecified (principal); F11.20 Opioid dependence, uncomplicated; R45.851 Suicidal ideations; F14.10 Cocaine abuse, uncomplicated; B18.2 Chronic viral hepatitis C; M54.50 Low back pain, unspecified; G89.29 Other chronic pain; F41.9 Anxiety disorder, unspecified; F17.210 Nicotine dependence, cigarettes, uncomplicated; Z71.6 Tobacco abuse counseling; Z20.822 Contact with and (suspected) exposure to COVID-19; Z79.899 Other long term (current) drug therapy
CPT/HCPCS: 36415; 80053; 80307; 81001; 81025; 85025; 87502; 87635; 90656; 93005; 99285; J0571; J1631; S9485

== ENCOUNTER → 2025-10-13 09:16 | Outpatient (BNV) | payer MEDICARE, MEDICAID, SELFPAY | PROVIDERS: Emergency Provider Emergency Medicine; Visit Provider Internal Medicine Cardiovascular Disease | DX: Z13.6 Encounter for screening for cardiovascular disorders (principal) | CPT/HCPCS: 93010 ==

== ENCOUNTER → 2025-10-13 15:09 | Outpatient (BNV) | payer MEDICARE, MEDICAID, SELFPAY | PROVIDERS: Admitting Provider Psychiatry & Neurology Psychiatry; Emergency Provider Emergency Medicine; Visit Provider Nurse Practitioner Family | DX: M54.50 Low back pain, unspecified (principal); G89.29 Other chronic pain | CPT/HCPCS: 99221 ==

== ENCOUNTER → 2025-10-13 15:09 | Outpatient (BNV) | payer MEDICARE, MEDICAID, SELFPAY | PROVIDERS: Admitting Provider Psychiatry & Neurology Psychiatry; Emergency Provider Emergency Medicine; Visit Provider Psychiatry & Neurology Psychiatry | DX: F25.9 Schizoaffective disorder, unspecified (principal); F14.10 Cocaine abuse, uncomplicated; F11.90 Opioid use, unspecified, uncomplicated | CPT/HCPCS: 90792; 99231; 99232; 99238 ==

== ENCOUNTER 2025-11-15 17:48 | Inpatient (IN) | payer MEDICARE, MEDICAID, SELFPAY ==
[2025-11-15 17:54] VITALS: BP 130/80; PULSE 82; O2SAT 98; BMI 31.9
[2025-11-15 18:08] VITALS: BP 133/69; PULSE 86; RESP 17; TEMP 36.5; O2SAT 97
[2025-11-15 18:22] LABS: Hematocrit 42.1 % (37.0-47.0); Hemoglobin 14.0 g/dl (12.0-16.0); Imm Gran Abs Auto 0.12 X10*3/uL (0.00-0.03); Imm Gran Pct Auto 0.6 % (0.0-0.4); Lymphocytes Absolute Auto 5.3 X10*3/uL (1.2-4.9); MANUAL DIFF FLAG SCAN; Mean Corpuscular HGB Conc 33.3 g/dl (31.0-35.0); Mean Corpuscular Hemoglobin 28.5 pg (27.0-33.0); Mean Corpuscular Volume 85.6 fL (80.0-98.0); NRBC Abs Auto 0.000 X10*3/uL (0.0-0.012); NRBC Pct Auto 0.0 /100WBC (0.0-0.2); Platelet Count 339 X10*3/uL (160-400); Red Blood Count 4.92 X10*6/uL (4.20-5.50); SCAN SMEAR FLAG 1; White Blood Count 21.3 X10*3/uL (4.8-10.8)
[2025-11-15 18:25] LABS: Appearance Urine Cloudy; Glucose Urine UA Negative (Negative); PH 6.5 (5.0-9.0); Specific Gravity - Urine 1.020 (1.005-1.025); UMIC TRIGGER UA YES
[2025-11-15 18:26] LABS: UPreg QC Valid YES
[2025-11-15 18:32] LABS: Cannabinoid Screen Urine Not Detected (Not Detect)
[2025-11-15 18:34] LABS: COVID-19 Test Negative (Negative)
[2025-11-15 18:40] LABS: Alanine Aminotransferase 24 U/L (0-31); Albumin Level 4.8 g/dL (3.5-5.0); Alkaline Phosphatase 103 U/L (39-117); Anion Gap 15 (12-20); Aspartate Amino Transferase 19 U/L (5-31); Blood Urea Nitrogen 15 mg/dL (9-16); Calcium 9.8 mg/dL (8.4-10.2); Carbon Dioxide 23 mmol/L (22-29); Chloride 106 mmol/L (96-108); Creatinine Clr Calc Pharmacy 118.7; Estimated Glomerular Filt Rate > 60; Potassium 3.7 mmol/L (3.3-5.1); Sodium 140 mmol/L (135-145); Total Protein 8.1 g/dL (6.5-8.0)
[2025-11-15 18:46] LABS: Acetaminophen LAB < 3 mcg/mL (<30); Salicylate < 5.0 mg/dL (15-30)
--- NOTE | 2025-11-15 21:09 | ED_ITS ---
HPI - General Adult General Chief complaint: Psychiatric Symptoms Stated complaint: SI for 24 hours Time Seen by Provider: 11/15/25 20:05 Source: patient Limitations: no limitations History of Present Illness ED Provider: Smita Rodgers PA-C HPI narrative: 40-year-old female with a history of schizoaffective disorder and polysubstance abuse, presents with SI. She states she is having auditory hallucinations, a woman's voice that has counting . She denies the presence of command hallucinations. The patient is having vague suicidal thoughts, she thinks that her medication is making her suicidal, she has no plan for self-harm. She wants to discuss medication adjustment. She is also not been completely medication adherent. Related Data Home Medications ?Medication ?Instructions ?Recorded ?Confirmed acetaminophen 650 mg PO Q8-10H PRN Pain, M ild 08/15/25 11/15/25 paliperidone palmitate 234 mg/1.5 234 mg IM Q4W psycho sis 11/15/25 11/15/25 mL intramuscular syringe (Invega Sustenna) Previous Rx's ?Medication ?Instructions ?Recorded buprenorphine HCl 2 mg sublingual 2 mg sublingual GARY Y MAT #30 tabs 08/27/25 tablet lactulose 10 gram/15 mL oral 10 g (15 mL) PO DAILY PRN 08/27/25 solution Constipation #1,200 mL acetaminophen 325 mg tablet 650 mg (2 x 325 mg) PO Q6H PRN 11/19/25 Headache/Pain, Scale 1-10 #0 tabs chlorpromazine 100 mg tablet 100 mg PO Q6H PRN Agitati on 30 11/19/25 days #120 tabs haloperidol decanoate 50 mg/mL 100 mg (2 mL) IM Q28D # 0 mL 11/19/25 intramuscular solution tizanidine 4 mg tablet 2 mg (1/2 x 4 mg) PO TID PRN 11/19/25 Muscle Spasm #0 tabs Allergies Allergy/AdvReac Type Severity Reaction Status Date / Time lamotrigine (From Lamictal) Allergy Shortness Verified 11/15/25 17:57 of Breath Review of Systems 2 Review of Systems: Yes all other systems are reviewed and are negative Constitutional: Constitutional: Denies fatigue and Denies fever(s) Cardiovascular: Cardiovascular: Denies chest pain and Denies dyspnea Respiratory: Respiratory: Denies dyspnea Gastrointestinal: Gastrointestinal: Denies abdominal pain Endocrine: Endocrine: Denies fatigue PMFSH Past Medical History Attestation statement: The following information was validated with the patient. Medical History (Updated 11/17/25 @ 20:11 by Tammy oMrales MD) Cocaine use disorder Opioid use disorder Schizoaffective disorder Polysubstance abuse Social History Social History Household Members: Other Household Members Other:: [facility] Housing: Other Housing Other:: [facility] Do you presently have visiting nurse or other home services: No Patient Tobacco Use Status: Current everyday Tobacco user Tobacco use type: Cigarette Cigarette Packs Per Day: 1 Cigarettes Per Day: 20.0 e-Cigarette/Vaping Use: Never Used Second Hand Smoke Exposure: No Substance Use Type: Crack/Cocaine service: No Sexual orientation: Straight/Heterosexual Physical Exam ED Vital Signs: Vital Signs - 24 hr 11/15/25 18:08 Temperature 97.7 F Pulse Rate 86 Respiratory Rate 17 Blood Pressure 133/69 Pulse Oximetry 97 Oxygen Delivery Method Room Air BMI result Body Mass Index 31.9 Const Other: awake Orientation/consciousness: patient oriented x3 Resp Effort & Inspection: normal respiratory effort Cardio Other: normal peripheral perfusion Skin Other: warm dry no rash Neuro General: patient oriented x3, gait normal, no focal motor deficits and CN's II- XI intact bilaterally Psych Other: cooperative at this time Course Reevaluation(s) Reevaluation #1: Time: 21:12 Date: 11/15/25 Provider: LIZ Henriquez Patient in physician observation for psychiatric evaluation.? No acute events reported overnight. No current complaints. VS stable.? Patient is in bed search status/pending CARE team evaluation. Will continue to monitor. Time: 21:12 Reevaluation #2: Receiving update from the care team, the patient is going to be an inpatient bed search, likely staying here a bed we will be opening up by tomorrow Time: 23:09 Reevaluation #3: Time: 05:10 Date: 11/16/25 Provider: Malcolm Bennett MD Patient in physician observation for psychiatric evaluation.? No acute events reported overnight. No current complaints. VS stable.? Patient was evaluated by the CARE team and needs inpatient level of care. Patient is in bed search status. Will continue to monitor. Time: 13:55 Date: 11/16/25 Provider: Malcolm Bennett MD Physician observation ended at 13:55. Patient to be admitted as inpatient to psychiatry. Medications Administered Discontinued Medications Generic Name Dose Route Start Last Admin Trade Name Freq PRN Reason Stop Dose Admin Acetaminophen 975 mg 11/15/25 21:25 11/15/25 21:30 Acetaminophen 325 Mg Tablet PO 11/15/25 21:26 975 mg ONCE ONE Administration Acetaminophen 650 mg 11/15/25 23:41 11/16/25 00:18 Acetaminophen 325 Mg Tablet PO 11/15/25 23:42 Not Given ONCE ONE Acetaminophen 650 mg 11/16/25 12:36 11/18/25 23:34 Acetaminophen 325 Mg Tablet PO 650 mg Q6H PRN Administration Headache/Pain, Scale 1-10 Buprenorphine HCl 2 mg 11/16/25 09:00 11/19/25 08:41 Buprenorphine Hcl 2 Mg Tab.Subl SUBLINGUAL 2 mg DAILY SYDNIE Administration Haloperidol Decanoate 100 mg 11/17/25 15:00 11/17/25 15:15 Haloperidol Decanoate 50 Mg/Ml Vial IM 100 mg Q28D SYDNIE Administration Paliperidone Palmitate 234 mg 11/19/25 09:49 11/19/25 08:42 Paliperidone Palmitate 234 Mg/1.5 Ml Syringe IM 11/19/25 09:50 234 mg ONCE ONE Administration Tizanidine HCl 2 mg 11/15/25 23:38 11/16/25 15:33 Tizanidine Hcl 4 Mg Tablet PO 2 mg TID PRN Administration Muscle Spasm Medical Decision Making Medical Decision Making MDM Narrative: 40-year-old female with a history of schizoaffective disorder and polysubstance abuse, presents with SI. She states she is having auditory hallucinations, a woman's voice that has counting . She denies the presence of command hallucinations. The patient is having vague suicidal thoughts, she thinks that her medication is making her suicidal, she has no plan for self-harm. She wants to discuss medication adjustment. She is also not been completely medication adherent. Problem: Psychiatric illness, polysubstance abuse History: Per patient I have considered the following differential diagnoses: SI, HI, decompensated psychiatric illness, drug / alcohol intoxication Plan: The patient will be seen by the care team, she we will be a section 12 and psychiatric consult. Care team was already seen her, placing the section 12 I am placing the site consult. She is not exhibiting aggression at this time. I have independently reviewed the following tests: Labs: Chronic leukocytosis, not anemia, no electrolyte abnormality, ethanol less than 10, U tox positive for cocaine, fentanyl, buprenorphine, COVID negative Differential Diagnosis Differential Diagnoses: The differential diagnosis associated with the presentation includes see MDM Admission/Observation Consideration of admission/observation: Escalation of care including admission/observation considered potential inpatient psych bed search Consult Healthcare Provider Management of the patient was discussed with: [employer] Supervisor and Behavioral Health Provider Lab Data [facility] Lab Attestation statement: I reviewed the patient's lab results. 11/15/25 18:12 11/15/25 18:12 Labs: Lab Results 11/15/25 Range/Units 18:12 WBC 21.3 H (4.8-10.8) X10*3/uL RBC 4.92 (4.20-5.50) X10*6/uL Hgb 14.0 (12.0-16.0) g/dl Hct 42.1 (37.0-47.0) % MCV 85.6 (80.0-98.0) fL MCH 28.5 (27.0-33.0) pg MCHC 33.3 (31.0-35.0) g/dl RDW 13.8 (11.0-16.0) % Plt Count 339 (160-400) X10*3/uL MPV 10.6 (9.4-12.3) fL Immature Gran % (Auto) 0.6 H (0.0-0.4) % Neut % (Auto) 67.7 (45-73) % Lymph % (Auto) 24.8 (20-40) % [place] % (Auto) 6.3 (2-11) % Eos % (Auto) 0.3 (0-4) % Baso % (Auto) 0.3 (0-2) % Lymph # (Auto) 5.3 H (1.2-4.9) X10*3/uL [place] # (Auto) 1.4 H (0.1-1.2) X10*3/uL Eos # (Auto) 0.1 (0.0-0.4) X10*3/uL Baso # (Auto) 0.1 (0.0-0.2) X10*3/uL Abs Immat Gran (auto) 0.12 H (0.00-0.03) X10*3/uL Absolute Neuts (auto) 14.4 H (2.0-8.3) x10*3/uL Absolute Nucleated RBC 0.000 (0.0-0.012) X10*3/uL Nucleated RBC % (auto) 0.0 (0.0-0.2) /100WBC Smear Tech's Comments VERIFIED Sodium 140 (135-145) mmol/L Potassium 3.7 (3.3-5.1) mmol/L Chloride 106 (96-108) mmol/L Carbon Dioxide 23 (22-29) mmol/L Anion Gap 15 (12-20) BUN 15 (9-16) mg/dL Creatinine 0.76 (0.5-1.4) mg/dL Estim Creat Clear Calc 118.7 Estimated GFR > 60 Random Glucose 126 H (60-115) mg/dL Calcium 9.8 (8.4-10.2) mg/dL Total Bilirubin 1.1 H (0.0-1.0) mg/dL AST 19 (5-31) U/L ALT 24 (0-31) U/L Alkaline Phosphatase 103 (39-117) U/L Total Protein 8.1 H (6.5-8.0) g/dL Albumin 4.8 (3.5-5.0) g/dL Urine Color Yellow Urine Appearance Cloudy Urine pH 6.5 (5.0-9.0) Ur Specific [place] 1.020 (1.005-1.025) Urine Protein Negative (Neg-Trace) mg/dL Urine Glucose (UA) Negative (Negative) mg/dL Urine Ketones Negative (Negative) mg/dL Urine Blood Trace H (Negative) Urine Nitrite Negative (Negative) Ur Leukocyte Esterase Negative (Negative) Urine RBC 3-5 H (0-2) /HPF Urine WBC 0-5 (0-5) /HPF Ur Squamous Epith Cells 11-20 (0-2) /HPF Urine Bacteria 2+ (None Seen) Hyaline Casts 0-2 (0-2) /LPF Urine Test NEGATIVE (NEGATIVE) Salicylates < 5.0 L (15-30) mg/dL Urine Opiates Screen Not Detected (Not Detect) Ur Buprenorphine Scrn Positive H (Not Detect) ng/mL Ur Oxycodone Screen Not Detected (Not Detect) ng/mL Urine Methadone Screen Not Detected (Not Detect) ng/mL Urine Fentanyl Screen POSITIVE H (Not Detect) Acetaminophen < 3 (<30) mcg/mL Ur Barbiturates Screen Not Detected (Not Detect) Ur Phencyclidine Scrn Not Detected (Not Detect) Ur Amphetamines Screen Not Detected (Not Detect) U Benzodiazepines Scrn Not Detected (Not Detect) Urine Cocaine Screen POSITIVE H (Not Detect) U Marijuana (THC) Screen Not Detected (Not Detect) Ethyl Alcohol < 10 mg/dL COVID-19 (MICHAEL) Negative (Negative) COVID-19 Clin Com See Note Discharge Plan Discharge Clinical Impression: Auditory hallucination, Suicidal ideation Patient Disposition: Admitted As Inpatient Interventions: Admission Worksheet (ED) Last Done: 11/16/25 13:55 Discharge Date/Time: 11/16/25 13:55
--- OUTSIDE RECORDS SUMMARY | 2025-11-15 22:48 | XMS_ITS | Clinical Summary ---
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
--- OUTSIDE RECORDS SUMMARY | 2025-11-15 22:49 | XMS_ITS | Clinical Summary ---
Author Organization [facility] [address] [place] [address] [place] [address] Phone Care Team Providers Care Scrapper Name Role Phone Noe Bhatt MD Primary Care Provider Allergies No known active allergies Medications acetaminophen (TYLENOL) 325 mg tablet 05/19/2025 Active buprenorphine (SUBUTEX) 2 mg 07/19/2025 Acti ve chlorproMAZINE (THORAZINE) 100 mg tablet 08/09/2025 Active haloperidol decanoate (HALDOL DECANOATE) 100 mg/mL injection 09/20/2025 Act cathie hydrOXYzine HCL (ATARAX) 25 mg tablet 08/27/2025 Active naproxen (NAPROSYN) 500 mg tablet 06/15/2025 Active nicotine polacrilex (NICORETTE) 2 mg gum 05/19/2025 Active traMADoL (ULTRAM) 50 mg tablet 08/27/2025 Active Invega Sustenna 234 mg/1.5 mL syringe Inject 1.5 mL (234 mg total) into the shoulder, thigh, or buttocks every 30 (thirty) days. 09/22/2025 Active tiZANidine (ZANAFLEX) 2 mg tablet Take 1 tablet (2 mg total) by mouth 3 (three) times a day if needed for muscle spasms. 90 tablet 1 10/05/2025 Active Active Problems Problem Noted Date Diagnosed Date Heroin use 09/28/2025 Chronic midline low back pain without sciatica 1 History of hepatitis C 09/28/2025 Tobacco use disorder 09/28/2025 Anxiety 09/28/2025 Encounters Date Type Department Care Team Description 09/30/2025 Telephone Adult [facility] [address] [place] [address] Noe Bhatt MD 09/28/2025 1:30 PM EDT Office Visit Adult Medicine [address] [phone] Elisabeth Cooper PA Routine general medical examination [...] file Not on file Not on file Last Filed Vital Signs Vital Sign Reading [...] 1:30 PM EST Office Visit Adult Medicine [facility] [address] [place], [place] [phone] Noe Bhatt MD [address] [place], [place] Health Maintenance Due Date Last Done [...] Medicare Annual Wellness Visit 12/27/2023 COVID-19 Vaccine (4 - 2024-2 6 season) 2025 10/08/2022, 02/23/2022, 06/27/2021 Influenza Vaccine (#1) 2026 2, 09/09/2019 Postponed from 08/02/2025 (Patient Refused) Social [...] patient's age to complete this topic Insurance [facility] MEDICARE Member Subscriber Plan / Payer (Ef fective 2019-Present) Name:TERESSA MARS Relation to Subscriber:Self Name:PrimoTeressa Payer ID:[id number] Group ID:[id number] Type:Not on file Address: [place] [address] [address] [id number] Care Teams Scrapper Relationship Specialty Start Date End Date Noe Bhatt MD [address] [place] [address] PCP - General Internal Medicine 06/21/25
--- NOTE | 2025-11-16 03:58 | PC.NURSE ---
Assumed care at 1845. Med req completed and orders obtained. C/o 09/10 chronic back pain, MD Decker made aware, given PRN Tylenol with great effect. Declined the need for additional PRNs. Provided liquids/snacks. Continue plan for IPLOC.
[2025-11-16 06:31] VITALS: BP 100/58; PULSE 58; RESP 16; TEMP 37.1; O2SAT 97
--- NOTE | 2025-11-16 07:33 | PC.NURSE ---
Assumed care, report received. Pt is currently sleeping, she is provided breakfast. safety is maintained.
--- NOTE | 2025-11-16 07:35 | ECG_ITS ---
Test Reason : r/o prolonged qt Blood Pressure : */* mmHG Vent. Rate : 66 BPM Atrial Rate : 66 BPM P-R Int : 128 ms QRS Dur : 70 ms QT Int : 386 ms P-R-T Axes : * 114 117 degrees QTcB Int : 404 ms Suspect limb lead reversal, interpretation assumes no reversal Normal sinus rhythm with sinus arrhythmia Lateral infarct , age undetermined Abnormal ECG When compared with ECG of 13-Oct-2025 09:15, QRS axis Shifted right Lateral infarct is now Present Referred By: Malcolm Bennett Electronically Signed By: Thang Cook
--- NOTE | 2025-11-16 13:48 | PHA.MEDREC ---
Pharmacy Consult ? Medication Reconciliation Pharmacy has reviewed the medication reconciliation completed by nursing.
[2025-11-16 14:16] VITALS: BMI 35.5
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
[2025-11-16 17:09] VITALS: BP 116/66; PULSE 99; RESP 14; TEMP 36.2; O2SAT 96
[2025-11-16 17:18] VITALS: BMI 38.9
[2025-11-16 20:00] VITALS: BP 94/60; PULSE 77; RESP 16; TEMP 36.6; O2SAT 96
[2025-11-17 08:30] VITALS: BP 93/54; PULSE 59; RESP 20; TEMP 36.6; O2SAT 95
--- NOTE | 2025-11-17 08:53 | HO.PM.IMCN ---
History of Present Illness Data of Consult Service Date: 11/17/25 Primary Care Provider: [facility] HPI 40-year-old female with a past medical history of Anxiety, bipolar affective disorder, PTSD, MDD, chronic hepatitis-C infection, chronic low back pain, polysubstance abuse and paranoia with aggressive and violent tendencies presented from her [facility] with Auditory hallucinations and vague SI. Initial blood work revealed chronic leukocytosis, no electrolyte imbalances, no , urine without infection, ethanol less than 10, U tox positive for cocaine, fentanyl and bupenorphine. On exam she has no medical concerns. Review of Systems Review of Systems: Denies any shortness of breath, chest pain, headaches, dysuria, abdominal pain or discomfort, nausea, vomiting or diarrhea. Denies fever or chills. [facility], [facility] Medical History (Updated 11/15/25 @ 21:15 by LIZ Henriquez) Cocaine use disorder Opioid use disorder Schizoaffective disorder Polysubstance abuse Social History Household Members: Other Household Members Other:: [facility] Housing: Other Housing Other:: [facility] Do you presently have visiting nurse or other home services: No Patient Tobacco Use Status: Current everyday Tobacco user Tobacco use type: Cigarette Cigarette Packs Per Day: 1 Cigarettes Per Day: 20.0 e-Cigarette/Vaping Use: Never Used Patient Interested in Nicotine Replacement: Yes Patient Given Instructions on How to Stop Smoking: Yes Date Education Initiated: 11/16/25 Second Hand Smoke Exposure: No Substance Use Type: Crack/Cocaine Currently Displaying Signs/Symptoms of Drug Intoxication Withdrawal: No Have you been hit, kicked, punched, or otherwise hurt by someone within the past year? If so, by whom?: No Do you feel safe in your current relationship?: No Current Relationship Is there a partner from a previous relationship who is making you feel unsafe now?: No Are you made to feel afraid or neglected: No Advance Directives: No Advance Directives Information Provided: Yes Do you have thoughts of harming others: None Do you have a plan to hurt others: No Plan Recently lost weight without trying: No Eating poorly because of decreased appetite: No Nutrition Risks: No Nutritional Risk Patient : No : No Poor oral hygiene: No service: No Sexual orientation: Straight/Heterosexual Meds Allergies Allergy/AdvReac Type Severity Reaction Status Date / Time lamotrigine (From Lamictal) Allergy Shortness Verified 11/15/25 17:57 of Breath Active Medications: Current Medications Acetaminophen (Acetaminophen 325 Mg Tablet) 650 mg PO Q6H PRN PRN Reason: Headache/Pain, Scale 1-10 Al Hydroxide/Mg Hydroxide (Magnesium Hydrox/Alum Hydrox 30 Ml Oral.Susp) 30 ml PO Q6H PRN PRN Reason: Heartburn/Nausea Buprenorphine HCl (Buprenorphine Hcl 2 Mg Tab.Subl) 2 mg SUBLINGUAL DAILY SYDNIE Last Admin: 11/17/25 08:36 Dose: 2 mg Chlorpromazine HCl (Chlorpromazine Hcl 100 Mg Tablet) 100 mg PO Q6H PRN PRN Reason: Agitation Hydroxyzine HCl (Hydroxyzine Hcl 25 Mg Tablet) 25 mg PO Q2H PRN PRN Reason: mild anxiety Lactulose (Lactulose 20 Gm/30 Ml Solution) 10 gm PO DAILY PRN PRN Reason: Constipation Magnesium Hydroxide (Milk Of Magnesia 30 Ml Oral.Susp) 30 ml PO DAILY PRN PRN Reason: Constipation Nicotine (Nicotine 21 Mg Patch.Td24) 21 mg TRANSDERMA DAILY PRN PRN Reason: nicotine craving Nicotine Polacrilex (Nicotine Polacrilex 2 Mg Gum) 2 mg BUCCAL Q2H PRN PRN Reason: Nicotine Cravings Tizanidine HCl (Tizanidine Hcl 4 Mg Tablet) 2 mg PO TID PRN PRN Reason: Muscle Spasm Last Admin: 11/16/25 15:33 Dose: 2 mg Trazodone HCl (Trazodone Hcl 50 Mg Tablet) 50 mg PO BEDTIME MRX1 PRN PRN Reason: Insomnia Home Medications ?Medication ?Instructions ?Recorded ?Confirmed ?Last Taken ?Type acetaminophen 650 mg PO Q8-10H PRN Pain, Mild 08/15/25 11/15/25 Unknown History tizanidine 2 mg tablet 2 mg PO TID PRN Muscle Spasm 10/13/25 11/15/25 Unknown History chlorpromazine 100 mg tablet 100 mg PO Q6H PRN Agitation 11/15/25 11/15/25 Unknown History haloperidol decanoate 50 mg/mL 100 mg IM Q4W Thought Disorder 11/15/25 11/15/25 Unknown History intramuscular solution hydroxyzine HCl 25 mg tablet 25 mg PO Q1-2H PRN mild anxiety 11/15/25 11/15/25 Unknown History paliperidone palmitate 234 mg/1.5 234 mg IM Q4W psychosis 11/15/25 11/15/25 Unknown History mL intramuscular syringe (Invega Sustenna) Physical Exam Vital Signs and Narrative: Vital Signs: Last Vital Signs Temp 97.9 F 11/16/25 20:00 Pulse 77 11/16/25 20:00 Resp 16 11/16/25 20:00 BP 94/60 11/16/25 20:00 Pulse Ox 96 11/16/25 20:00 O2 Del Method Room Air 11/16/25 20:00 BMI result Body Mass Index 38.9 CONST: Alert and oriented, in NAD. Well nourished HEENT: Normocephalic, atraumatic, MMM, Eyes clear, Neck supple RESP: Lungs clear, RRR even and regular HEART:,RRR, S1, S2. No edema GI:Abdomen Soft NT, ND. + BS times four :Deferred SKIN: Warm dry and intact, no visible lesions or rashes NEURO:CN II-XII Intact bilaterally, Sensation intact. Speech clear PSYCH: Flat affect, cooperative Results Labs 11/15/25 18:12 11/15/25 18:12 Assessment and Plan (1) Chronic low back pain: Status: Acute Plan 40-year-old female with a past medical history of anxiety, bipolar affective disorder, MDD, PTSD, history of polysubstance use including heroin, cocaine, and ecstasy, chronic hepatitis-C infection, schizoaffective disorder, chronic low back pain admitted to inpatient psychiatric care after presenting to the ED with auditpry hallucinations and vague SI. Anxiety, Bipolar affective disorder, MDD,PTSD, history of Polysubstance use/Schizoaffective disorder/ suicide ideation Treatment per psychiatric team Chronic low back pain Would avoid narcotics Continue Tylenol and Lidoderm patch daily Thank you for allowing me to participate in the care of this patient. Will follow as needed, please notify medical provider with any changes in condition or concerns.
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
[2025-11-18 07:00] VITALS: BMI 38.6
--- NOTE | 2025-11-18 07:42 | P.PNPSI_ITS ---
Subjective Subjective Date of Service: 11/18/25 Reason For Visit: SI/all Subjective Notes: 3 Day Interim History: Chart reviewed. Case discussed w/ team Pt received Haldol decanoate 100 mg yesterday. Met w/ pt in the milieu. She feels safe w/ plan to d/c back to her detention tomorrow. She denies SI/violent ideation, AH/VH or med side effects. Per nursing report-slept 8.5 hrs Medication Compliance: Yes Side effects from medications: No Attending Groups: No Review of Systems Acute medical concerns: No Medical Review of Systems: unchanged Mental Status Exam Mental Status Exam Narrative: Appearance: Attitude:Cooperative Speech: Paucity of speech but otherwise wnl. Motor activity: No tics, tremors or dyskinesias. Expressive w/ hands. Mood: 'okay' Affect: flat Thought process: goal directed Thought content: as noted above. Perception: Denies AH/VH and does not appear to respond to internal stimuli Alert/oriented in all spheres Cognition grossly intact Insight: fair Judgment: fair Diagnostics Vital Signs (24Hr): Vital Signs - 24 hr 11/18/25 19:28 Temperature 98.3 F Pulse Rate 73 Respiratory Rate 18 Blood Pressure 108/55 L Pulse Oximetry 96 Oxygen Delivery Method Room Air BMI result Body Mass Index 38.6 Labs 11/15/25 18:12 11/15/25 18:12 Medications Medications Current Medications Acetaminophen (Acetaminophen 325 Mg Tablet) 650 mg PO Q6H PRN PRN Reason: Headache/Pain, Scale 1-10 Last Admin: 11/18/25 23:34 Dose: 650 mg Al Hydroxide/Mg Hydroxide (Magnesium Hydrox/Alum Hydrox 30 Ml Oral.Susp) 30 ml PO Q6H PRN PRN Reason: Heartburn/Nausea Buprenorphine HCl (Buprenorphine Hcl 2 Mg Tab.Subl) 2 mg SUBLINGUAL DAILY [facility] Last Admin: 11/18/25 08:21 Dose: 2 mg Chlorpromazine HCl (Chlorpromazine Hcl 100 Mg Tablet) 100 mg PO Q6H PRN PRN Reason: Agitation Haloperidol Decanoate (Haloperidol Decanoate 50 Mg/Ml Vial) 100 mg IM Q28D SYDNIE Last Admin: 11/17/25 15:15 Dose: 100 mg Hydroxyzine HCl (Hydroxyzine Hcl 25 Mg Tablet) 25 mg PO Q2H PRN PRN Reason: mild anxiety Lactulose (Lactulose 20 Gm/30 Ml Solution) 10 gm PO DAILY PRN PRN Reason: Constipation Magnesium Hydroxide (Milk Of Magnesia 30 Ml Oral.Susp) 30 ml PO DAILY PRN PRN Reason: Constipation Nicotine (Nicotine 21 Mg Patch.Td24) 21 mg TRANSDERMA DAILY PRN PRN Reason: nicotine craving Nicotine Polacrilex (Nicotine Polacrilex 2 Mg Gum) 2 mg BUCCAL Q2H PRN PRN Reason: Nicotine Cravings Paliperidone Palmitate (Paliperidone Palmitate 234 Mg/1.5 Ml Syringe) 234 mg IM ONCE ONE Stop: 11/19/25 09:50 Tizanidine HCl (Tizanidine Hcl 4 Mg Tablet) 2 mg PO TID PRN PRN Reason: Muscle Spasm Last Admin: 11/16/25 15:33 Dose: 2 mg Trazodone HCl (Trazodone Hcl 50 Mg Tablet) 50 mg PO BEDTIME MRX1 PRN PRN Reason: Insomnia Allergies Allergies Allergy/AdvReac Type Severity Reaction Status Date / Time lamotrigine (From Lamictal) Allergy Shortness Verified 11/15/25 17:57 of Breath Assessment & Plan Assessment & Plan (1) Schizoaffective disorder, bipolar type: Status: Acute Code(s): F25.0 - Schizoaffective disorder, bipolar type (2) Cocaine use disorder: Status: Acute Code(s): F14.10 - Cocaine abuse, uncomplicated (3) Opioid use disorder: Status: Acute Code(s): F11.90 - Opioid use, unspecified, uncomplicated Plan Ms. Tillman is a 40 y/o SWF with h/o schizoaffective d/o, cocaine use d/o, opioid use d/o, on [facility] who was hospitalized at [facility] for a total of 5 yrs and d/c'd in May 2025 who presented to [facility] from her detention due to increased SI and depression and requested to adjust her medications. Initial Plan: Admitted to [facility] for safety and stabilization Legal status- Signed CV. Signed 3-day note later in the day of admission. 15 min safety checks Continue current prn med regimen. Clarify when pt is due for next dose of Invega Sustenna and Haldol decanoate. Left message w/ pt's outpatient psychiatric provider to call back for care coordination, discuss possible med changes. 11/17: No beahvioral issues. Pt denies SI/violent ideation, AHVH. t/w communicated w/ pt's professor of psychiatry to discuss possible med changes and w/ Dr. Banks from [facility] to discuss the course of her tx at [facility]. Pt reportedly had breakthrough psychosis on Invega Sustenna 234 mg at [facility] and Haldol decanoate 100 mg q month was added with good effect. Pt ultimately decided that she would like to stay on this med combination (which is on her [place] order anyway) rather than trying alternative. Received haldol decanoate 100 mg IM today. Ordered Invega Sustenna 234 mg for this Saturday (28 days after last dose). Will d/c back to detention on Saturday when 3-day expires. 11/18: 3-day expires tomorrow. No behavioral issues. Stable. Feels safe to be d/c'd tomorrow back to [facility] detention. Will receive Invega Sustenna 234 mg tomorrow prior to d/c. Patient educated on: medication risk/benefits Informed Consent: understands Reason for continued inpatient stay Substantial Risk for: stable for discharge Time Spent With Patient Time: Total time managing care of this patient today ____ minutes.
--- NOTE | 2025-11-18 17:53 | MHC.RECOVRN ---
Consult received by Addiction Medicine for pt with crack cocaine use.? TW made 2 attempts to meet with pt to offer recovery support and resources.? Pt declined to meet at both attempts. If pt requests recovery support please reconsult ACS Team
[2025-11-18 19:28] VITALS: BP 108/55; PULSE 73; RESP 18; TEMP 36.8; O2SAT 96
--- NOTE | 2025-11-19 07:47 | P.DS_ITS ---
DS: Providers Provider Date of admission: 11/16/25 12:36 Date of discharge: 11/19/25 Primary care physician: [employer] [employer] Attending physician on admission: Tammy Morales Consults: 11/15/25 17:53 ED CARE Team Crisis Consult Stat Comment: Reason for consultation: SI 11/16/25 16:35 Addiction Medicine Provider Routine Consulting Provider: Addiction Covering Reason for consultation: substance use of crack in the last month Attending physician on discharge: Tammy Morales DS: Diagnosis Discharge Diagnosis (1) Schizoaffective disorder, bipolar type: Status: Acute (2) Cocaine use disorder: Status: Acute (3) Opioid use disorder: Status: Acute DS: Medications Discharge Medications Home Medications: Home Medications ?Medication ?Instructions ?Recorded ?Confirmed acetaminophen 650 mg PO Q8-10H PRN Pain, M ild 08/15/25 11/15/25 tizanidine 2 mg tablet 2 mg PO TID PRN Muscle Spasm 10/13/25 11/15/25 chlorpromazine 100 mg tablet 100 mg PO Q6H PRN Agitati on 11/15/25 11/15/25 haloperidol decanoate 50 mg/mL 100 mg IM Q4W Thought D isorder 11/15/25 11/15/25 intramuscular solution hydroxyzine HCl 25 mg tablet 25 mg PO Q1-2H PRN mild a nxiety 11/15/25 11/15/25 paliperidone palmitate 234 mg/1.5 234 mg IM Q4W psycho sis 11/15/25 11/15/25 mL intramuscular syringe (Invega Sustenna) Previous Rx's ?Medication ?Instructions ?Recorded buprenorphine HCl 2 mg sublingual 2 mg sublingual GARY Y MAT #30 tabs 08/27/25 tablet lactulose 10 gram/15 mL oral 10 g (15 mL) PO DAILY PRN 08/27/25 solution Constipation #1,200 mL nicotine (polacrilex) 2 mg gum 2 mg buccal Q2H PRN Dev otine 08/27/25 Cravings #100 ea nicotine 21 mg/24 hr daily 21 mg transdermal DAILY PRN 08/27/25 transdermal patch nicotine craving #28 ea Mental Status Exam Mental Status Exam Narrative: Appearance: Attitude:Cooperative Speech: Paucity of speech but otherwise wnl. Motor activity: No tics, tremors or dyskinesias. Expressive w/ hands. Mood: 'okay' Affect: blunted Thought process: goal directed Thought content: Denies SI/violent ideation Perception: Denies AH/VH and does not appear to respond to internal stimuli Alert/oriented in all spheres Cognition grossly intact Insight: fair Judgment: fair Data Data Completed and Pending Completed studies during hospitalization [Text1]: 11/15/25 18:12 WBC 21.3 H RBC 4.92 Hgb 14.0 Hct 42.1 MCV 85.6 MCH 28.5 MCHC 33.3 RDW 13.8 Plt Count 339 MPV 10.6 Immature Gran % (Auto) 0.6 H Neut % (Auto) 67.7 Lymph % (Auto) 24.8 [place] % (Auto) 6.3 Eos % (Auto) 0.3 Baso % (Auto) 0.3 Lymph # (Auto) 5.3 H [place] # (Auto) 1.4 H Eos # (Auto) 0.1 Baso # (Auto) 0.1 Abs Immat Gran (auto) 0.12 H Absolute Neuts (auto) 14.4 H Absolute Nucleated RBC 0.000 Nucleated RBC % (auto) 0.0 Smear Tech's Comments VERIFIED Sodium 140 Potassium 3.7 Chloride 106 Carbon Dioxide 23 Anion Gap 15 BUN 15 Creatinine 0.76 Estim Creat Clear Calc 118.7 Estimated GFR > 60 Random Glucose 126 H Calcium 9.8 Total Bilirubin 1.1 H AST 19 ALT 24 Alkaline Phosphatase 103 Total Protein 8.1 H Albumin 4.8 Urine Color Yellow Urine Appearance Cloudy Urine pH 6.5 Ur Specific [place] 1.020 Urine Protein Negative Urine Glucose (UA) Negative Urine Ketones Negative Urine Blood Trace H Urine Nitrite Negative Ur Leukocyte Esterase Negative Urine RBC 3-5 H Urine WBC 0-5 Ur Squamous Epith Cells 11-20 Urine Bacteria 2+ Hyaline Casts 0-2 Urine Test NEGATIVE Salicylates < 5.0 L Urine Opiates Screen Not Detected Ur Buprenorphine Scrn Positive H Ur Oxycodone Screen Not Detected Urine Methadone Screen Not Detected Urine Fentanyl Screen POSITIVE H Acetaminophen < 3 Ur Barbiturates Screen Not Detected Ur Phencyclidine Scrn Not Detected Ur Amphetamines Screen Not Detected U Benzodiazepines Scrn Not Detected Urine Cocaine Screen POSITIVE H U Marijuana (THC) Screen Not Detected Ethyl Alcohol < 10 COVID-19 (MICHAEL) Negative COVID-19 Clin Com See Note DS: Summary Hospital Course Hospital Course: Ms. Tillman is a 40-year-old female with a history of schizoaffective disorder and polysubstance use d/o, on community Ferguson who presented to [facility] with SI. Tox screen positive for cocaine, buprenorphine and fentanyl. She was transferred to [facility] for safety and stabilization. Per ED and CARE team assessment- She states she is having auditory hallucinations, a woman's voice that has counting . She denies the presence of command hallucinations. The patient is having vague suicidal thoughts, she thinks that her medication is making her suicidal, she has no plan for self- harm. She wants to discuss medication adjustment. She is also not been completely medication adherent. On admission to : Pt reported I was just feeling suicidal , started yesterday. She can't identify any specific stressors that contributed to her worsening mood. She reports taking Invega Sustenna and Haldol decanoate x 2 yrs and feels like her meds aren't working since she still has intermittent SI. She reports hearing AH of voices every day... they count. they talk . She's unable to provide more details. She reports that she has received the Martín consistently. Pt's shelter reportedly informed the groundsman that pt is typically very quiet and keeps to herself but appeared to be increasingly manic with pressured speech prior to admission. She reports that she smokes crack a couple times/week on the street to make the voices go away , which doesn't work. She denies recent opioid misuse and states that the crack must have been laced with fentanyl. Pt was d/c'd from [facility] after a 5 year hospitalization at [facility] in May 2025. Currently resides at a [facility] shelter and she reports that she likes it. Pt denies violent ideation. She endorses a passive wish w/o intent/plan to harm herself today. MSE on admission- Appearance: Lying in bed in the dark. Disheveled. Intermittent eyue contact Attitude:Cooperative Speech: Fluent and wnl in regard to volume, tone, prosody Motor activity: Calm and without any tics, tremors or dyskinesias. Steady gait Mood: as noted above Affect: appropriate, reactive, generally bright Thought process: goal directed and without evidence of formal thought disorder Thought content: as noted above. Future oriented Perception: Denies AH/VH and does not appear to respond to internal stimuli Alert/oriented in all spheres Cognition grossly intact Insight: intact Judgment: intact Initial Plan: Admitted to [facility] for safety and stabilization Legal status- Signed CV. 15 min safety checks Continue current med regimen for now. Clarify when pt is due for next dose of Invega Sustenna and Haldol decanoate. Left message w/ pt's outpatient psychiatric provider to call back for care coordination, discuss possible med changes. Will communicate w/ guardian prior to making any med changes 11/17/25: -T/W communicated w/ pt's outpatient psychiatric provider for care coordination, discussed possible med change. -Stable. Slept 8 hrs. Denies SI/HI, AH/VH. States she signed 3-day note because I don't want to be here . T/W discussed alternative med options, including clozapine, which is not on her Ferguson (would have to be amended). Pt reported that she has a seizure disorder and therefore cannot take clozapine, described her seizures as I flop around like a fish . She stated that she wants to continue her current med regimen (which are on her Ferguson). -Most recent EDWARDS doses confirmed. haldol decanote 100 mg IM- last dose 10/17/25. Was due 11/14/25 (28 days from last dose) Invega Sustenna 234 mg IM- last dose 10/22. Will be due Saturday, 11/19 (28 days from last dose) Haldol decanoate 100 mg IM given 11/17/2511/18 -3-day expires tomorrow -She feels safe w/ plan to d/c back to her shelter tomorrow. She denies SI/violent ideation, AH/VH or med side effects. slept 8.5 hrs 11/19 -Stable, denies SI/violent idetaion, AH/VH or med SE. Safe for discharge back to shelter. -Invega Sustenna 234 mg IM given today before discharge No medications were changed during this admission. Pt maintained good behavioral control and did not engage in any unsafe behaviors during her admission. Pt was counseled on the negative impact of illicit drug use on her physical and mental health. Status at Discharge Functional status at discharge: independent ambulation Overall status at discharge: patient is back to baseline Time Spent with Patient Time attestation: Total time managing care of this patient today ____ minutes. Time spent: Greater than 30 minutes Specific discharge activities: Pt meeting, discharge planning, documentation Discharge Plan Discharge Anticipated Discharge Date/Time: 11/19/25 11:25 Patient Disposition: Home, Self-Care Discharge Diagnosis: Schizoaffective disorder Cocaine use d/o Opioid use d/o, on maintenance tx Referrals: Therapy & Psychiatry [Other] - 1 Week Referral Note: *[facility] has been informed of your scheduled discharge. Please reach out to them in order to obtain the aftercare follow up appointment information if they don't contact you directly. [facility] [Other[facility] - 1 Week Referral Note: *You visiting nurse agency has been informed of your scheduled discharge. They will follow up with you in the community. If you have any questions, reach out to them at the phone number listed above. [facility] [Primary Care Provider, Primary Care] - 1 Week Discharge Medications: New acetaminophen 325 mg Tablet 650 mg PO Q6H PRN (Reason: Headache/Pain, Scale 1-10) Qty: 0 0RF tizanidine 4 mg Tablet 2 mg PO TID PRN (Reason: Muscle Spasm) Qty: 0 0RF chlorpromazine 100 mg Tablet 100 mg PO Q6H PRN (Reason: Agitation) 30 Days Qty: 120 0RF haloperidol decanoate 50 mg/mL Solution 100 mg IM Q28D Qty: 0 0RF Continued acetaminophen 650 mg PO Q8-10H PRN (Reason: Pain, Mild) buprenorphine HCl 2 mg Tablet, Sublingual 2 mg sublingual DAILY Qty: 30 0RF lactulose 10 gram/15 mL Solution 10 g PO DAILY PRN (Reason: Constipation) Qty: 1200 0RF Invega Sustenna 234 mg/1.5 mL syringe 234 mg IM Q4W Patient Comments: Pt reports she was last dosed on 10/17 or 10/18 Rx Instructions: Last dose given on 09/23/25 Discontinued nicotine 21 mg/24 hr Patch 24 Hour 21 mg transdermal DAILY PRN (Reason: nicotine craving) Qty: 28 0RF nicotine (polacrilex) 2 mg Gum 2 mg buccal Q2H PRN (Reason: Nicotine Cravings) Qty: 100 0RF chlorpromazine 100 mg tablet 100 mg PO Q6H PRN (Reason: Agitation) haloperidol decanoate 50 mg/mL solution 100 mg IM Q4W Patient Comments: Pt reports she was last dosed on 10/17 or 10/18 Rx Instructions: Last dose was on 09/17 hydroxyzine HCl 25 mg tablet 25 mg PO Q1-2H PRN (Reason: mild anxiety) tizanidine 2 mg tablet 2 mg PO TID PRN (Reason: Muscle Spasm) Discharge Orders: Discharge Order (Routine); Ordered 11/19/25 Ordered By: Tammy Morales Diet: Regular diet Activity on Discharge: No Restrictions Stand Alone Forms: Patient Portal Discharge page, Community Support Print Language: Argentine Care Plan Goals: Maintain safe behaviors Practice coping skills Take medications as prescribed Avoid crack-cocaine, opiate and other substance use. Continue buprenorphine Maintain regular follow-ups with your outpatient providers Health Concerns: U tox positive for fentanyl and cocaine Plan of Treatment: Follow up with your psychiatric provider, PCP and other outpatient providers Take your medication as prescribed Assessment: Risk assessment at the time of discharge: Patient was interviewed on the day of discharge and found to be fully oriented, without any SI or violent ideation. Pt has improved insight and judgment and plans to continue treatment Pt is not currently at high risk of harm to self or others and has a safety plan that includes presenting to the closest ER or calling 911 if feeling unsafe. Pt has been observed closely by unit staff and has not engaged in any behaviors that suggest dangerous to self or others and has demonstrated appropriate behaviors and impulse control. Discharge Date/Time: 11/19/25 11:25
== END 2025-11-19 11:25 | disposition home or self-care (01) | DRG 885 ==
LOC: HO.ED 11-16 05:08 → HO.PADLT16 11-16 13:35
PROVIDERS: Physician Assistant Medical; Admitting Provider Psychiatry & Neurology Psychiatry; Emergency Provider Emergency Medicine Emergency Medical Services; Visit Provider Psychiatry & Neurology Psychiatry
DX: F25.0 Schizoaffective disorder, bipolar type (principal); F11.20 Opioid dependence, uncomplicated; R45.851 Suicidal ideations; F14.10 Cocaine abuse, uncomplicated; M54.50 Low back pain, unspecified; F19.10 Other psychoactive substance abuse, uncomplicated; F17.210 Nicotine dependence, cigarettes, uncomplicated; F43.10 Post-traumatic stress disorder, unspecified; B18.2 Chronic viral hepatitis C; G89.29 Other chronic pain; Z20.822 Contact with and (suspected) exposure to COVID-19; Z71.6 Tobacco abuse counseling; Z79.899 Other long term (current) drug therapy
CPT/HCPCS: 36415; 80053; 80143; 80179; 80307; 81001; 81025; 85025; 87635; 93005; 99285; J0571; J1631; J2426; S9485

== ENCOUNTER → 2025-11-16 07:35 | Outpatient (BNV) | payer MEDICARE, MEDICAID, SELFPAY | PROVIDERS: Admitting Provider Psychiatry & Neurology Psychiatry; Emergency Provider Emergency Medicine Emergency Medical Services; Visit Provider Internal Medicine Cardiovascular Disease | DX: R94.31 Abnormal electrocardiogram [ECG] [EKG] (principal); Z13.6 Encounter for screening for cardiovascular disorders | CPT/HCPCS: 93010 ==

== ENCOUNTER → 2025-11-16 12:36 | Outpatient (BNV) | payer MEDICARE, MEDICAID, SELFPAY | PROVIDERS: Admitting Provider Psychiatry & Neurology Psychiatry; Emergency Provider Emergency Medicine Emergency Medical Services; Visit Provider Psychiatry & Neurology Psychiatry | DX: F25.0 Schizoaffective disorder, bipolar type (principal); F14.10 Cocaine abuse, uncomplicated; F11.90 Opioid use, unspecified, uncomplicated | CPT/HCPCS: 90792; 99231; 99232; 99238 ==

== ENCOUNTER → 2025-11-16 12:36 | Outpatient (BNV) | payer MEDICARE, MEDICAID, SELFPAY | PROVIDERS: Admitting Provider Psychiatry & Neurology Psychiatry; Emergency Provider Emergency Medicine Emergency Medical Services; Visit Provider Nurse Practitioner Family | DX: M54.50 Low back pain, unspecified (principal); G89.29 Other chronic pain | CPT/HCPCS: 99221 ==